=== PATIENT | male | born 1980 | race Hispanic/Latino ===

== ENCOUNTER 2020-02-21 19:25 | Emergency (ER) | payer BC ==
[~2020-02-21] VITALS: Ht 170.2 cm; Wt 105.7 kg
[~2020-02-21 19:25] MED LIST: AZITHROMYCIN250 MG PO; BACLOFEN10 MG PO; BREO ELLIPTA INH; CLONAZEPAM2 M1 PO; CRESTOR10 MG PO; DECONGESTANT; MELOXICAM7.5 MG PO; METFORMIN HCL500 MG PO; OMEPRAZOLE40 MG PO; PROAIR HFA INH8.5 GM INH; TAMIFLU
[2020-02-21] MEDS ORDERED: ONDANSETRON HCL INJ 2MG/ML 2ML 2 MG/ML VIAL IV STA (19:32)
--- NOTE | 2020-02-21 19:34 | Emergency Department Note ---
History of Present Illnes History of Present Illness Chief Complaint: Abdominal Complaints History of Present Illness This is a 40 year old male arrived to the ED with continued complaints of epigatric Abdominal pain. Patient states he is concerned that he had endoscopy done and was not told he had gastritis. Patient requesting endoscopy report results we discussed with him in a language that was understandable. Patient describes the pain is pressure-like associated with reflux and worse after meals.. Chief Complaint Comment Patient c/o left upper quadrant pain that has been going on since Saturday. Patient states he had EGD and colonoscopy and was told he had a hiatal hernia. No distress noted at this time. C/o nausea and vomiting. Historian: Patient Arrival Mode: Car Onset (how long ago): day(s) Duration (how long): day(s) Timing of current episode: constant Progression: unchanged Chronicity: recurrent Past Medical/Family History Physician Review I have reviewed the patient's past medical and family history. Any updates have been documented here. Past Medical History Recent Fever: No Clinical Suspicion of Infectio: No New/Unexplained Change in Ment: No Past Medical History: Anxiety Other Medical History: Borderline DM Other Surgery: HERNIA Social History Smoking Cessation: Never Smoker Counseling Performed: No Alcohol Use: Social Review of Systems Review of Systems Constitutional: Reports no symptoms EENTM: Reports no symptoms Cardiovascular: Reports no symptoms Respiratory: Reports no symptoms Gastrointestinal: Reports as per HPI, Reports abdominal pain, Reports nausea, Reports vomiting Genitourinary: Reports no symptoms Musculoskeletal: Reports no symptoms Integumentary: Reports no symptoms Neurological: Reports no symptoms Psychological: Reports no symptoms Endocrine: Reports no symptoms Hematological/Lymphatic: Reports no symptoms Physical Exam Related Data Allergies: Coded Allergies: Penicillins (Verified Allergy, Unknown, 05/08/17) Triage Vital Signs Vital Signs Date Time Temp Pulse Resp B/P (MAP) Pulse Ox O2 Delivery O2 Flow Rate FiO2 02/21/20 19:28 98.0 95 20 126/71 100 Room Air Vital signs reviewed: Yes Physical Exam CONSTITUTIONAL Constitutional: Present well-developed, Present well-nourished HENT HENT: Present normocephalic, Present atraumatic, Present oropharynx clear/moist, Present nose normal HENT L/R: Present left ext ear normal, Present right ext ear normal EYES Eyes: Reports PERRL, Reports conjunctivae normal NECK Neck: Present ROM normal PULMONARY Pulmonary: Present effort normal, Present breath sounds normal CARDIOVASCULAR Cardiovascular: Present regular rhythm, Present heart sounds normal, Present capillary refill normal, Present normal rate GASTROINTESTINAL Abdominal: Present soft, Present bowel sounds normal, Present tender GENITOURINARY Genitourinary: Present exam deferred SKIN Skin: Present warm, Present dry MUSCULOSKELETAL Musculoskeletal: Present ROM normal NEUROLOGICAL Neurological: Present alert, Present oriented x 3, Present no gross motor or sensory deficits PSYCHOLOGICAL Psychological: Present mood/affect normal, Present judgement normal Results Laboratory Lab results reviewed: Yes Imaging Imaging results reviewed: Yes Impressions LOWER THORAX: Unremarkable HEPATOBILIARY: No focal hepatic lesions. No biliary ductal dilation. GALLBLADDER: There are cholecystectomy clips. SPLEEN: No splenomegaly. PANCREAS: No focal masses or ductal dilatation. ADRENALS: No adrenal nodules KIDNEYS/URETERS: Kidneys enhance symmetrically. No hydronephrosis. No cystic or solid mass lesions. No stones. GI TRACT: No abnormal distention, wall thickening, or evidence of bowel obstruction. Colonic diverticuli. Appendix is normal. PELVIC ORGANS/BLADDER: Unremarkable. LYMPH NODES: No lymphadenopathy. VESSELS: Unremarkable. PERITONEUM / RETROPERITONEUM: No free air or fluid. BONES: Unremarkable. SOFT TISSUES: Hernia repair mesh intact in the lower anterior peritoneum. IMPRESSION: No acute CT abnormality in the abdomen or pelvis. Colonic diverticulosis without diverticulitis. Signed by: Rc Morales DO on 02/21/2020 10:30 PM Assessment & Plan Medical Decision Making MDM 40-year-old male arrived to the ED with complaints epigastric abdominal pain, patient with a generally benign abdomen. Patient's recent endoscopy/colonoscopy are consistent with gastritis with hiatal hernia. CT abdomen pelvis done in the emergency department unremarkable for any acute surgical or obstructive process. Spoke to patient at length about the need for bland diet, weight loss status. Patient also given discharge instructions on appropriate foods to ingest with gastritis. Patient expressed understanding, atypical presentation of ACS was ruled out with lab work and EKG. Patient stable for discharge home. Assessment & Plan Final Impression: (1) Gastritis Depart Disposition: HOME, SELF-CARE Last Vital Signs Date Time Temp Pulse Resp B/P (MAP) Pulse Ox O2 Delivery O2 Flow Rate FiO2 02/21/20 19:28 98.0 95 20 126/71 100 Room Air Home Meds Active Scripts Mag Hydrox/Al Hydrox/Simeth (MAALOX MAXIMUM STRENGTH SUSP) 355 Ml Oral.susp, 15 ML PO TID, #120 ML Prov:SAEID CROOK DO 02/21/20 Reported Medications [Decongestant] No Conflict Check 05/10/17 [Tamiflu] No Conflict Check 05/10/17 Azithromycin (Z-JOVAN) 250 Mg Tablet, 250 MG PO DAILY, #1 UDPKT Z-Pack 05/08/17 [Breo Ellipta] No Conflict Check, INH DAILY 05/08/17 Albuterol Sulf* (PROAIR HFA INHALER*) 8.5 Gm Inh, 1 SPR INH PRN PRN for SHORTNESS OF BREATH 05/08/17 Rosuvastatin Calcium (CRESTOR) 10 Mg Tab, 10 MG PO DAILY THERAPEUTICALLY SUBSTITUTED WITH SIMVASTATIN 40MG 05/08/17 Omeprazole (OMEPRAZOLE) 40 Mg Capsule.dr, 40 MG PO DAILY 05/08/17 Baclofen (BACLOFEN) 10 Mg Tablet, 10 MG PO TID, #90 TAB 05/08/17 Meloxicam (MELOXICAM) 7.5 Mg Tablet, 15 MG PO DAILY, #30 TAB 05/08/17 Metformin Hcl (METFORMIN HCL) 500 Mg Tablet, 500 MG PO BID, #60 TAB 05/08/17 Clonazepam (CLONAZEPAM) 2 Mg Tab.rapdis, 2 MG PO PRN PRN for ANXIETY 05/08/17 SAEID CROOK DO Feb 21, 2020 19:34
[2020-02-21] MEDS ORDERED: MORPHINE SULFATE 5 MG/ML VIAL IV ONE (19:45)
[2020-02-21] MEDS ORDERED: IOPAMIDOL 370 MG/ML 200 ML INFUS..BTL INJ ONE (19:46)
[2020-02-21] MEDS ORDERED: SODIUM CHLORIDE 0.9% 50ML 50 ML ONE (19:46)
[2020-02-21 19:50] LABS: BILIRUBIN,URINE NEGATIVE (NEGATIVE); CLARITY,URINE HAZY (CLEAR); COLOR,URINE YELLOW (YELLOW); KETONES,URINE NEGATIVE (NEGATIVE); LEUKOCYTE ESTERASE ,URINE NEGATIVE (NEGATIVE); NITRITE,URINE NEGATIVE (NEGATIVE); PROTEIN,URINE DIPSTICK NEGATIVE (NEGATIVE); URINE UROBILINOGEN 0.2 mg/dL (0.2 - 1)
[2020-02-21 19:51] LABS: BASOPHILS % 0.6 % (0.0-1.0); EOSINOPHILS # (AUTO) 0.2 (0.0-0.4); EOSINOPHILS % 3.8 % (0.0-6.0); HEMATOCRIT 44.8 % (38.2-49.6); HEMOGLOBIN 14.9 g/dL (14.0-18.0); LYMPHOCYTES # (AUTO) 2.2 (1.0-3.2); LYMPHOCYTES % 34.2 % (18.0-39.1); MEAN CORPUSCULAR HEMOGLOBIN 29.9 pg (28-32); MEAN CORPUSCULAR HGB CONC 33.3 g/dL (31-35); MONOCYTES # (AUTO) 0.5 (0.2-0.8); MONOCYTES % 7.5 % (4.4-11.3); NEUTROPHILS # (AUTO) 3.4 (2.1-6.9); NEUTROPHILS % 53.4 % (38.7-80.0); PLATELET COUNT 277 x10e3/uL (140-360); RED BLOOD COUNT 4.98 x10e6/uL (4.3-5.7)
[2020-02-21 19:54] LABS: BACTERIA,URINE FEW /HPF; EPITHELIAL CELLS,URINE FEW /LPF; RBC,URINE 0-5 /HPF (0-5); WBC,URINE (MAN) 0-5 /HPF (0-5)
[2020-02-21] MEDS ORDERED: SODIUM CHLORIDE 0.9% 1000ML 1,000 ML ONE (19:56)
--- OUTSIDE RECORDS SUMMARY | 2020-02-21 19:56 | XMS REPORT | Clinical Summary ---
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 On HOLD because of diarrhea. Active clonAZEPAM (KlonoPIN) 1 Take 1 mg by 0 MG tablet mouth nightly as needed for anxiety. Active rosuvastatin (CRESTOR) 20 Take 20 mg by 0 MG tablet mouth nightly. Active lisinopril Take 5 mg by 0 (PRINIVIL,ZESTRIL) 5 mg mouth daily. tablet On HOLD because of diarrhea. Active escitalopram (LEXAPRO) 20 Take 20 mg by 0 MG tablet mouth nightly. Active aspirin (ECOTRIN) 81 MG Take 81 mg by 0 enteric coated tablet mouth daily. Active acetaminophen (TYLENOL) Take 500 mg 0 500 MG tablet by mouth every 6 (six) hours as needed for mild pain. Active cyclobenzaprine Take 10 mg by 0 (FLEXERIL) 10 mg tablet mouth 3 (three) times a day as needed for muscle spasms. Active keTOROlac (TORadol) 10 mg Take 10 mg by 0 tablet mouth every 6 (six) hours as needed for moderate pain. Active testosterone 20.[address] Place 20.25 0 mg/1.25 gram (1.62 %) gel mg on the in metered-dose pump skin daily. 02/26/2019 Discontinued (Med List Clean up) ciprofloxacin HCl (CIPRO) Take 750 mg 0 750 MG tablet by mouth 2 (two) times a day. Active Problems Not on file Encounters Care Team Description Date Type Specialty Kevin Dee MD Gastroenteritis (Primary Dx); Upper respiratory tract infection, unspecified type 02/26/2019 Emergency Emergency Medicine after 02/20/2019 Social History Date Tobacco Use Types Packs/Day Years Used Never Smoker Drinks/Week oz/Week Comments Alcohol Use Not Currently Sex Assigned at Date Recorded Not on file Industry Job Start Date Occupation Not on file Not on file Not on file Travel End Travel History Travel Start No recent travel history available. Last Filed Vital Signs Reading Time Taken Comments Vital Sign 139/86 02/26/2019 9:06 AM CDT Blood Pressure 82 02/26/2019 11:00 AM CDT Pulse 36.6 C (97.9 F) 02/26/2019 9:19 AM CDT Temperature 18 02/26/2019 9:06 AM CDT Respiratory Rate 98% 02/26/2019 11:00 AM CDT Oxygen Saturation - - Inhaled Oxygen Concentration - - Weight 170.2 cm (5' 7") 02/26/2019 9:06 AM CDT Height - - Body Mass Index Plan of Treatment Health Maintenance Due Date Last Done Comments INFLUENZA VACCINE 03/10/2020 Procedures Comments Procedure Name Priority Date/Time Associated Diag nosis CT RENAL STONE PROTOCOL STAT 02/26/2019 10:50 AM CDT URINALYSIS SCREEN AND STAT 02/26/2019 MICROSCOPY, WITH REFLEX 9:58 AM CDT TO CULTURE URINE CULTURE STAT 02/26/2019 9:58 AM CDT ESTIMATED GFR STAT 02/26/2019 9:53 AM CDT LIPASE LEVEL STAT 02/26/2019 9:53 AM CDT COMPREHENSIVE METABOLIC STAT 02/26/2019 PANEL 9:53 AM CDT HC COMPLETE BLD COUNT STAT 02/26/2019 W/AUTO DIFF 9:53 AM CDT after 02/20/2019 Results * CT Renal Stone Protocol (02/26/2019 10:50 AM CDT) Specimen Narrative Performed At EXAMINATION: CT RENAL STONE PROTOCOL [facility] CLINICAL HISTORY: Hematuria unknown cause TECHNIQUE: Multiple axial images of the abdomen and pelvis were obtained without intravenous administration of iodinated contrast. Sagittal and coronal computerized reformatted images were al so obtained. The lack of intravenous contrast reduces the sensitivity of detecting solid organ di sease. CT imaging was performed with iterative reconstruction techniques and/or automated exposure control to reduce ra diation dose. COMPARISON: None. FINDINGS: Lower chest: No parenchymal abnormality is noted in the lung bases. Abdomen: Limited assessment for solid organ and vascular disease in the absence of contrast. No free air is seen in the abdomen. The re is no evidence of pneumatosis. Limited noncontrast images of the liver demonstrates fatty infiltration. No definite focal liver lesion can be iden tified on this noncontrast examination. Prior cholecystectomy. No significant d ilatation of the biliary tree. The spleen is not enlarged. The adrenal glands are unremarkable. Within the limitations of a noncontrast examination, no definite focal abnormality can be seen in the pancreas . The abdominal aorta is nonaneurysmal. No significant adenopathy in the upper abdomen, retroperitoneum, or mesenteric root by size criteria. There are a few scattered diverticula o f the colon without findings to suggest diverticulitis. There is no evidence of appendicitis. There is no thickening of the small bowel or findings to suggest underlying small bowel obstruction. The stomach is grossly unremarkable. No ascites. No suspicious peritoneal or omental nodularity. Within the limitations of a noncontrast examination, there is no evidence of a solid mass seen in either kidney. There is no evidence of hydronephrosis or hydroureter. No renal stone or evidence of a ureteral stone. No ascites. Prior hernia repair with me sh. Pelvis: Urinary bladder is grossly unremarkable . No pelvic adenopathy. Minor degenerative changes of the bones . No definite suspicious bony lesion is identified. IMPRESSION: 1.No CT evidence of an acute abnormalit y in the abdomen or pelvis. 2.Fatty infiltration of the liver. 3.Prior cholecystectomy. 4.Colonic diverticulosis without eviden ce of acute diverticulitis. 5.Additional findings and details as ab ove. [facility]-[id number] Procedure Note [facility], Radiology Results Incoming - 02/26/2019 10:59 AM CDT EXAMINATION: CT RENAL STONE PROTOCOL CLINICAL HISTORY: Hematuria unknown cause TECHNIQUE: Multiple axial images of the abdomen and pelvis were obtained without intravenous administration of iodinated contrast. Sagittal and coronal computerized reformatted images were also obtained. The lack of intravenous contrast reduces the sensitivity of detecting solid organ disease. CT imaging was performed with iterative reconstruction techniques and/or automated exposure control to reduce radiation dose. COMPARISON: None. FINDINGS: Lower chest: No parenchymal abnormality is noted in the lung bases. Abdomen: Limited assessment for solid organ and vascular disease in the absence of contrast. No free air is seen in the abdomen. There is no evidence of pneumatosis. Limited noncontrast images of the liver demonstrates fatty infiltration. No definite focal liver lesion can be identified on this noncontrast examination. Prior cholecystectomy. No significant dilatation of the biliary tree. The spleen is not enlarged. The adrenal glands are unremarkable. Within the limitations of a noncontrast examination, no definite focal abnormality can be seen in the pancreas. The abdominal aorta is nonaneurysmal. No significant adenopathy in the upper abdomen, retroperitoneum, or mesenteric root by size criteria. There are a few scattered diverticula of the colon without findings to suggest diverticulitis. There is no evidence of appendicitis. There is no thickening of the small bowel or findings to suggest underlying small bowel obstruction. The stomach is grossly unremarkable. No ascites. No suspicious peritoneal or omental nodularity. Within the limitations of a noncontrast examination, there is no evidence of a solid mass seen in either kidney. There is no evidence of hydronephrosis or hydroureter. No renal stone or evidence of a ureteral stone. No ascites. Prior hernia repair with mesh. Pelvis: Urinary bladder is grossly unremarkable. No pelvic adenopathy. Minor degenerative changes of the bones. No definite suspicious bony lesion is identified. IMPRESSION: 1.No CT evidence of an acute abnormality in the abdomen or pelvis. 2.Fatty infiltration of the liver. 3.Prior cholecystectomy. 4.Colonic diverticulosis without evidenc e of acute diverticulitis. 5.Additional findings and details as abo ve. [facility]-[id number] Performing Organization Address City/State/Zipcode Ph one Number [facility] [address] [place] [address] * Urinalysis screen and microscopy, with reflex to culture (02/26/2019 9:58 AM CDT) Specimen site Clean catch [facility] Color, UA Yellow [facility] Appearance, UA Clear [facility] Specific 1.023 1.001 - 1.035 [place] gravity, [facility] pH, UA 6.0 5.0 - 8.5 [facility] Protein, UA 1+ (A) Negative [facility] Glucose, UA Negative Negative [facility] Ketones, UA Negative Negative [facility] Bilirubin, UA Negative Negative [facility] Blood, UA Small (A) Negative [facility] Nitrite, UA Negative Negative [facility] Urobilinogen, <2.0 <2.0 [facility] Leukocyte Negative Negative [facility] esterase, UA [facility] WBC, UA 1 0 - 1 /HPF [facility] RBC, UA 2 0 - 5 /HPF [facility] Bacteria, UA None seen None seen [facility] Yeast, UA None seen [facility] Yeast with None seen [facility] Specimen Urine Performing Organization Address City/[facility] Ph one Number [facility] DEPARTMENT OF [address] [place] [address] PATHOLOGY AND GENOMIC MEDICINE [address] * Urine culture (02/26/2019 9:58 AM CDT) Pathologist [facility] Urine culture SEE COMMENTComment: [facility] Bacteriuria screen negative. [facility] Specimen Urine Performing Organization Address [facility] Ph one Number [facility] DEPARTMENT OF [address] [place] [address] PATHOLOGY AND GENOMIC MEDICINE [address] * Estimated GFR (02/26/2019 9:53 AM CDT) Pathologist [facility] Estimated GFR >=90 mL/min/1.73 m2 [facility] Comment: [facility] Interpretation G1 >=90 Normal or high G2 60-89 Mildly decreased G3a 45-59 Mildly to moderately decreased G3b 30-44 Moderately to severely decreased G4 15-29 Severely decreased G5 <15 Kidney failure The eGFR was calculated using the Chronic Kidney Disease Epidemiology Collaboration (CKD-EPI) equation. Interpretation is based on recommendations of the National Kidney Foundation-Kidney Disease Outcomes Quality Initiative (NKF-KDOQI) published in 2014. Specimen Plasma specimen Performing Organization Address City/[facility]/[employer] Ph one Number [facility] DEPARTMENT OF [address] [place] [address] PATHOLOGY AND GENOMIC MEDICINE [address] * CBC with platelet and differential (02/26/2019 9:53 AM CDT) WBC 6.62 4.50 - 11.00 k/uL [facility] RBC 5.56 4.40 - 6.00 m/uL [facility] HGB 16.6 14.0 - 18.0 g/dL [facility] HCT 51.1 (H) 41.0 - 51.0 % [facility] MCV 91.9 82.0 - 100.0 fL [facility] MCH 29.9 27.0 - 34.0 pg [facility] MCHC 32.5 31.0 - 37.0 g/dL [facility] RDW - SD 43.0 37.0 - 55.0 fL [facility] MPV 9.1 8.8 - 13.2 fL [facility] Platelet count 350 150 - 400 k/uL [facility] Nucleated RBC 0.00 /100 WBC [facility] Neutrophils 62.4 39.0 - 69.0 % [facility] Lymphocytes 29.5 25.0 - 45.0 % [facility] Monocytes 5.0 0.0 - 10.0 % [facility] Eosinophils 1.8 0.0 - 5.0 % [facility] Basophils 0.8 0.0 - 1.0 % [facility] Immature 0.5Comment: "Immature 0.0 - 1.0 % [facility] granulocytes granulocytes" (promyelocytes, METHOD IST myelocytes, metamyelocytes) HOSPITAL Specimen Blood Performing Organization Address City/[facility] Ph one Number [facility] DEPARTMENT OF [address] [place] [address] PATHOLOGY AND GENOMIC MEDICINE [address] * Lipase level (02/26/2019 9:53 AM CDT) Pathologist [facility] Lipase 25 13 - 60 U/L [facility] Specimen Plasma specimen Performing Organization Address City/[facility] Ph one Number [facility] [place] [address] PATHOLOGY AND GENOMIC MEDICINE [address] * Comprehensive metabolic panel (02/26/2019 9:53 AM CDT) [facility] Sodium 140 135 - 148 mEq/L [facility] Potassium 4.2 3.5 - 5.0 mEq/L [facility] Chloride 101 98 - 112 mEq/L [facility] CO2 27 24 - 31 mEq/L [facility] Anion gap 12@ANIO 7 - 15 mEq/L [facility] BUN 14 6 - 20 mg/dL [facility] Creatinine 0.99 0.70 - 1.20 mg/dL [facility] Glucose 106 (H) 65 - 99 mg/dL [facility] Calcium 9.5 8.3 - 10.2 mg/dL [facility] Protein 8.0 6.3 - 8.3 g/dL [facility] Comment: [facility] 4.6-7.0 g/dL 1 week 4.4-7.6 g/dL 7 months-1year 5.1-7.3 g/dL 1-2 years 5.6-7.5 g/dL >3 years 6.0-8.0 g/dL 18-150 6.3-8.3 g/dL Albumin 4.2 3.5 - 5.0 g/dL [facility] A/G ratio 1.1 0.7 - 3.8 [facility] Alkaline 142 (H) 40 - 129 U/L [facility] phosphatase [facility] AST 22 10 - 50 U/L [facility] ALT 41 5 - 50 U/L [facility] Total bilirubin 0.5 0.0 - 1.2 mg/dL [facility] Specimen Plasma specimen Performing Organization Address City/State/[facility] Ph one Number [facility] DEPARTMENT OF [address] [place] [address] PATHOLOGY [place] [address] HOSPITAL after 02/20/2019 Insurance Type Payer Benefit Subscriber ID Effective Phone Address Plan / Dates Group PPO BCBS BCBS xxxxxxxxxxxx [id number] CHOICE resent PPO/SERGEY MCARTHUR PPO Advance Directives For more information, please contact: [phone] Patient Electronic Gluer Explanation Type Date Recorded Advance Directives, Living Will and Medical Power of Mask Former
--- OUTSIDE RECORDS SUMMARY | 2020-02-21 19:56 | XMS REPORT | Continuity of Care Document ---
[facility] Address [address] [place] [address] Phone Unavailable Care Team Providers Care Sleep Lab Technologist Name Role Phone Arya Reynolds MD PCP Jie Dee MD Attphys [phone] Oralia MINOR Attphys Unavailable Payers Payer Name Policy Type Policy Number Effective Date Expiration Date S jaida BCBSBCBS CHOICE PPO/FEDERAL EMPL PPOxxxxxxxxxxxx2017-Pre sentPPO xxxxxxxxxxxx 2017 00:00:00 [facility] Problems Condition Name Condition Details Condition Category Status Onset Date Resolution Date Last Treatment Date Treating Clinician Comments Source Musculoskeletal chest pain Musculoskeletal chest pain Disease Active 2015-03-16 00:00:00 [facility] Vomiting Vomiting Disease Active 2014-04-07 00:00:00 Overview: Reported 02/21 by pt as occuring nearly daily for 2 years. Referred to GI, who requested further lab/Xrays. Informed pt of need to return for these. [facility] Fatty liver Fatty liver Disease Active 2014-01-19 00:00:00 [facility] Hyperlipidemia Hyperlipidemia Disease Active 2014-01-19 00:00:00 [facility] Costochondritis Costochondritis Disease Active 2014-01-19 00:00:00 [facility] Polydipsia Polydipsia Disease Active [facility] Polyuria Polyuria Disease Active [facility] Allergies, Adverse Reactions, Alerts Allergy Name Allergy Type Status Severity Reaction(s) Onset Date Inacti ve Date Treating Clinician Comments Source Ciprofloxacin Propensity to adverse reactions to drug Active 2019-02-26 00:00:00 dizziness Shahram lowery Penicillins Propensity to adverse reactions to drug Active Rash 2019-02-26 00:00:00 Shahram lowery Penicillins DA Active [place] 2017-12-11 00:00:00 [facility] Penicillins Propensity to adverse reactions to drug Active 2014-01-19 00:00:00 [facility] Family History Family Member Diagnosis Comments Start Date Stop Date Source Natural brother Cancer [facility] alth Natural father Hypertension [facility] ealth Maternal grandmother Diabetes [facility] Maternal grandmother Heart Saurabh is [facility] Natural mother Psychiatry Located within [facility] Social History Social Habit Start Date Stop Date Quantity Comments Source Sex Assigned At [facility] Alcohol intake 2015-07-27 00:00:00 2015-07-27 00:00:00 Current non-drinker of alcohol (finding) [facility] Alcohol Comment 2014-05-20 00:00:00 2014-05-20 00:00:00 quit 6 yrs ag o [facility] Smoking Status Start Date Stop Date Source Never smoker [facility] Medications Ordered Medication Name Filled Medication Name Start Date Stop Da te Current Medication? Ordering Clinician Indication Dosage Frequency Signature (SIG) Comments Components Source ciprofloxacin HCl (CIPRO) 750 MG tablet 12:26:31 2019-02-26 00:00:00 No 750mg Q.5D Take 750 mg by mouth 2 (two) ti mes a day. Shahram Haider rosuvastatin (CRESTOR) 20 MG tablet 2019-02-26 12:25:30 Yes 20mg QD Take 20 mg by mouth nightly. Shahram martin escitalopram (LEXAPRO) 20 MG tablet 2019-02-26 12:25:30 Yes 20mg QD Take 20 mg by mouth nightly. Shahram martin cyclobenzaprine (FLEXERIL) 10 mg tablet 2019-02-26 12:25:30 Yes 10mg [id number] Take 10 mg by mouth 3 (three) times a da y as needed for muscle spasms. Shahram Haider keTOROlac (TORadol) 10 mg tablet 2019-02-26 12:25:30 Yes 10mg Q6H Take 10 mg by mouth every 6 (six) hours as needed for moderate pain. Shahram Haider testosterone 20.25 mg/1.25 gram (1.62 %) gel in metered-dose pump 2019-02-26 12:25:[address] 20.25 mg on the skin d aily. Shahram Haider metFORMIN (GLUCOPHAGE) 500 mg tablet 2019-02-26 11:10:48 Ye s 500mg Q.5D Take 500 mg by mouth 2 (two) times a day with meals. On HOLD because of diarrhea. Shahram Haider clonAZEPAM (KlonoPIN) 1 MG tablet 2019-02-26 11:10:48 Yes 1mg QD Take 1 mg by mouth nightly as needed for anxiety. Shahram Haider lisinopril (PRINIVIL,ZESTRIL) 5 mg tablet 2019-02-26 11:10:48 Yes 5mg QD Take 5 mg by mouth daily. On HOLD because of diarrhea. Shahram Haider aspirin (ECOTRIN) 81 MG enteric coated tablet 2019-02-26 11:10:4 8 Yes 81mg QD Take 81 mg by mouth daily. Sebastian Haider acetaminophen (TYLENOL) 500 MG tablet 2019-02-26 11:10:48 Y es 500mg Q6H Take 500 mg by mouth every 6 (six) hours as needed for mild pain. Shahram Haider dicyclomine (BENTYL) 10 mg capsule 2015-08-02 00:00:00 Yes Epigastric pain 10mg Take 1 capsule by mo uth 4 times daily before meals & at bedtime as needed. [facility] gabapentin (NEURONTIN) 100 mg capsule 2015-07-27 00:00:00 Yes Tension headache 100mg Take 1 capsule by mouth 3 times daily. [facility] predniSONE (DELTASONE) 10 mg tablet 2015-07-27 00:00:00 Yes Neck strain, sequela 10mg QD Take 1 tablet by mouth daily. [facility] methocarbamol (ROBAXIN-750) 750 mg tablet 2015-07-25 00:00:0 0 Yes Tension headache 750mg Take 1 tablet by dane 4 times daily as needed for Other (muscle spasms). [facility] clonazePAM (KLONOPIN) 1 mg tablet 2015-03-30 12:05:34 Yes 1mg Take 1 mg by mouth 2 times daily as needed for Anxiety. [facility] Vital Signs Vital Name Observation Time Observation Value Comments Source Heart rate 2019-02-26 11:00:00 82 /min Shahram Haider Oxygen saturation in Arterial blood by Pulse oximetry 02-26 11:00:00 98 /min Shahram Haider Body temperature 2019-02-26 09:19:00 36.61 Estrella [place] [facility] Systolic blood pressure 2019-02-26 09:06:00 139 mm[Hg] Shahram Haider Diastolic blood pressure 2019-02-26 09:06:00 86 mm[Hg] Shahram Haider Respiratory rate 2019-02-26 09:06:00 18 /min Hous denise Haider Body height 2019-02-26 09:06:00 170.2 cm Shahram Haider Procedures Procedure Date / Time Performed Performing Clinician [facility] e CT RENAL STONE PROTOCOL 2019-02-26 10:50:03 [place] Dee URINE CULTURE 2019-02-26 09:58:00 Kevin Dee URINALYSIS SCREEN AND MICROSCOPY, WITH REFLEX TO CULTURE 201 02-16-19 09:58:00 Kevin Dee HC COMPLETE BLD COUNT W/AUTO DIFF 2019-02-26 09:53:00 Kevin Oconnor COMPREHENSIVE METABOLIC PANEL 2019-02-26 09:53:00 Kevin Dee LIPASE LEVEL 2019-02-26 09:53:00 Kevin Dee ESTIMATED GFR 2019-02-26 09:53:00 Kevin Dee Plan of Care Planned Activity Planned Date Details Comments Source Future Scheduled Test 2020-03-10 00:00:00 INFLUENZA VACCINE [code = INFLUENZA VACCINE] [facility] Encounters Start Date/Time End Date/Time Encounter Type Admission Type [facility] Care Department Encounter ID Source 2019-09-26 11:37:00 2019-09-26 11:37:00 Emergency [facility] [id number] [facility] Results Test Description Test Time Test Comments Results Result Comments Source COMPREHENSIVE METABOLIC PANEL 2019-09-24 09:01:00 Test Item SODIUM (test code = NA) 136 mEq/L 134-147 N POTASSIUM (test code = K) 3.5 mEq/L 3.4-5.0 N CHLORIDE (test code = CL) 105 mEq/L 100-108 N CARBON DIOXIDE (test code = CO2) 29 mEq/L 21-33 N ANION GAP (test code = GAP) 6 0-20 N GLUCOSE (test code = GLU) 108 mg/dL 70-110 N BLOOD UREA NITROGEN (test code = BUN) 12 mg/dL 7-18 N GLOMERULAR FILTRATION RATE (test code = GFR) 83.2 105-110 L Units of measure = ml/min/1.73 m2 CREATININE (test code = CREAT) 1.0 mg/dL 0.6-1.3 N TOTAL PROTEIN (test code = PROT) 7.8 g/dL 6.4-8.2 N ALBUMIN (test code = ALB) 3.80 g/dL 3.4-5.0 N CALCIUM (test code = CA) 8.8 mg/dL 8.0-10.5 N BILIRUBIN TOTAL (test code = BILT) 0.7 MG/DL <1.5 N SGOT/AST (test code = AST) 31 IUnit/L 15-37 N SGPT/ALT (test code = ALT) 43 IUnit/L 15-65 N ALKALINE PHOSPHATASE TOTAL (test code = ALKP) 107 IUnit/L 20-125 N [id number] 09:01:00* Test Item Value Reference Range Interpretation Comments LIPASE (test code = LIP) 73 IUnit/L 73-393 N [id number] 09:01:00* Test Item Value Reference Range Interpretation Comments TROPONIN-I (test code = TROPI) < 0.015 ng/mL 0.000-0.045 N Negative: <= 0.045 Positive: >= 0.046 Correlation with serial results, other cardiac markers andclinical findings is necessary to determine the clinicalsignificance of this result. Results using different methodologies should not be comparedto one another as quantitative results may vary by method. CBC W/AUTO [id number] 08:24:00* Test Item Value Reference Range Interpretation Comments WHITE BLOOD CELL (test code = WBC) 5.81 x10 3/uL 4.5-11.0 N RED BLOOD CELL (test code = RBC) 4.94 x10 6/uL 4.00-5.60 N HEMOGLOBIN (test code = HGB) 15.2 g/dL 12.5-16.9 N HEMATOCRIT (test code = HCT) 45.6 % 37.5-50.7 N MEAN CELL VOLUME (test code = MCV) 92.3 fL 81.0-99.0 N MEAN CELL HGB (test code = MCH) 30.8 pg 27.0-33.0 N MEAN CELL HGB CONCETRATION (test code = MCHC) 33.3 g/dL 33.0-37. 0 N RED CELL DISTRIBUTION WIDTH CV (test code = RDW) 12.9 % 11.5- 14.5 N RED CELL DISTRIBUTION WIDTH SD (test code = RDW-SD) 43.5 fL 37 .0-54.0 N PLATELET COUNT (test code = PLT) 305 x10 3/uL 150-400 N MEAN PLATELET VOLUME (test code = MPV) 9.5 fL 7.0-9.0 H NEUTROPHIL % (test code = NT%) 70.5 % 56.0-77.0 N IMMATURE GRANULOCYTE % (test code = IG%) 0.3 % 0.0-2.0 N LYMPHOCYTE % (test code = LY%) 20.8 % 14.0-32.0 N MONOCYTE % (test code = MO%) 6.2 % 4.8-9.0 N EOSINOPHIL % (test code = EO%) 1.7 % 0.3-3.7 N BASOPHIL % (test code = BA%) 0.5 % 0.0-2.0 N NUCLEATED RBC % (test code = NRBC%) 0.0 % 0-0 N NEUTROPHIL # (test code = NT#) 4.09 x10 3/uL 2.0-7.6 N IMMATURE GRANULOCYTE # (test code = IG#) 0.02 x10 3/uL 0.00-0.03 N LYMPHOCYTE # (test code = LY#) 1.21 x10 3/uL 1.0-3.8 N MONOCYTE # (test code = MO#) 0.36 x10 3/uL 0.1-0.8 N EOSINOPHIL # (test code = EO#) 0.10 x10 3/uL 0.0-0.2 N BASOPHIL # (test code = BA#) 0.03 x10 3/uL 0.0-0.2 N NUCLEATED RBC # (test code = NRBC#) 0.00 x10 3/uL 0.0-0.1 N MANUAL DIFF REQUIRED (test code = MDIFF) NO - XR CHEST 1 [id number] 08:24:00 FAX: Arya Corley MD [phone] [place]: St: [facility] FAX: Iraj Larsen [phone] Name: VALENTE MORA [facility] : 1980 Age/S: 39/M [address] [place] [address] Unit #: [id number] Loc: [place] [address] Phys: Iraj Larsen Acct: [id number] Dis Date: Status: REG ER PHONE #: [phone] Exam Date: 09/24/2019 08 FAX #: [phone] Reason: cough, hemoptysis EXAMS: CPT CODE: [id number] XR CHEST 1 V 73407 EXAM: Single view AP chest. EXAM DATE: 09/24/2019804 CLINICAL HISTORY: cough, hemoptysis COMPARISON: April 25, 2019 at 2007 hours Cardiomediastinal silhouette is within normal limits. The lungs appear free of acute disease. Elevation of the right hemidiaphragm is stable. Imaged osseous structures demonstrate no acute findings. IMPRESSION: No evidence of acute cardiopulmonary disease. at 0824 Reported and signed by: Shelley Bonilla M.D. CC: Arya Reynolds M.D.; Iraj HIGUERA Techn ologist: Joan Ye RT(R) Trnscrd Date/Joe e/By: 09/24/2019 (0810) : By: NatashaCER Orig Print D/T: S: 09/24/2019 (8970) PAGE 1 Signed Report - CT ABD PELVIS [id number] 23:43:00 Name: VALENTE MORA [facility] : 1980 Age/S: 39 / M [address] [place] [address] Unit #: [id number] Loc: [place] [address] Phys: Ceasar Sanderson Acct: [id number] Di s Date: Status: REG ER PHONE #: Exam Date: 06/26/20192316 FAX #: Reason: RLQ pain EXAMS: CPT CODE: [id number] CT ABD PELVIS W/CONT 33554 EXAM: CT, CT ABDO MEN PELVIS W CONTRAST: 06/26/2019, 2316 hours HISTORY: RLQ pain COMPARISON: 06/29/2019. TECHNIQUE: Helical imaging was p erformed from diaphragm through the symphysis with coronal and sagittal re constructions. CT imaging was performed with exposure control parameters to reduce radiation dose. All CT scans at this location are performed usin g dose optimization techniques as appropriate to perform exam including following: * Automated exposure control * Adjustment of the mA a nd /or kV according to patient size (this includes techniques or standardi zed protocols for targeted exams where dose is matched to indication/reaso n for exam; extremities or head) * Use of iterative reconstruction techn ique IV CONTRAST: 100 cc Isovue. GI CONTRAST: No CT Radiation Dose: DLP = 694.57 mGy-cm FINDINGS: LOWER CHEST: T he visualized lung bases are clear. LIVER: Hepatic steatos is.. GALLBLADDER: Cholecystectomy.. INTRAHEPATIC BILE DUCT AND EXTRA HEPATIC BILE DUCT: Unremarkable. PANCREAS: Unremarkable. SPLEEN: Unr emarkable. ADRENALS: Unremarkable. KIDNEYS AND URETERS: Unremarkable . STOMACH: Unremarkable. BOWEL: The small bowel loops in the abdomen and pelvis appear unremarkable. Sigmoid diverticulosis without di verticulitis. APPENDIX: Unremarkable. No evidence for acute appendicitis . PERITONEUM AND RETROPERITONEUM: No ascites or free air. There is no aortic aneurysm or dissection. LYMPH NODES: Unremarkable. PELVIS: No pelvic mass or adenopathy. PAGE 1 Signed Report (CONTINUED) Name: VALENTE MORA [facility] : 1980 Age/S: 39 / M [address] [place] [address] Unit #: [id number] Loc: [place] [address] Phys: Vicenta Sanderson Acct: [id number] Dis Date: Status: REG ER PHONE #: [phone] Exam Date: 06/26/2019 231 FAX #: [phone] Reason: RLQ pain EXAMS: CPT CODE: [id number] CT ABD PELVIS W/CONT 75345 <Continued> BLADDER: Unremarkable. Prostatitic calcification. OSSEOUS STRUCTURES: No acute abnormality seen. SOFT TISSUES: Ventral hernia repair changes.. IMPRESSION: 1. No acute abdominal or pelvic abnormality. No significant interval change. 2. No evidence for appendicitis. 3. Hepatic steatosis. 4. Sigmoid diverticulosis without diverticulitis. 5. Cholecystectomy. SL: FLORY at 2343 Reported and signed by: Jair Arcos M.D. CC: Arya Reynolds M.D.; Vicenta HIGUERA Technologist:Jenny Wing, RT(R)(CT) CTDI: DLP: Trnscb Date/Time: 06/26/2019 (2343) [email or web address] Orig Print D/T: S: 06/26/2019 (7266) PAGE 2 Signed Report BASIC METABOLIC [id number] 23:33:00* Test Item Value Reference Range Interpretation Comments SODIUM (test code = NA) 141 mEq/L 134-147 N POTASSIUM (test code = K) 4.0 mEq/L 3.4-5.0 N CHLORIDE (test code = CL) 105 mEq/L 100-108 N CARBON DIOXIDE (test code = CO2) 30 mEq/L 21-33 N ANION GAP (test code = GAP) 10 0-20 N GLUCOSE (test code = GLU) 113 mg/dL 70-110 H BLOOD UREA NITROGEN (test code = BUN) 17 mg/dL 7-18 N GLOMERULAR FILTRATION RATE (test code = GFR) 83.2 105-110 L Units of measure = ml/min/1.73 m2 CREATININE (test code = CREAT) 1.0 mg/dL 0.6-1.3 N CALCIUM (test code = CA) 8.8 mg/dL 8.0-10.5 N BASIC METABOLIC [id number] 23:29:00* Test Item Value Reference Range Interpretation Comments SODIUM (test code = NA) 141 mEq/L 134-147 N POTASSIUM (test code = K) 4.0 mEq/L 3.4-5.0 N CHLORIDE (test code = CL) 105 mEq/L 100-108 N CARBON DIOXIDE (test code = CO2) 30 mEq/L 21-33 N ANION GAP (test code = GAP) 10 0-20 N GLUCOSE (test code = GLU) 113 mg/dL 70-110 H BLOOD UREA NITROGEN (test code = BUN) 17 mg/dL 7-18 N GLOMERULAR FILTRATION RATE (test code = GFR) 105-110 CREATININE (test code = CREAT) mg/dL 0.6-1.3 CALCIUM (test code = CA) 8.8 mg/dL 8.0-10.5 N CBC W/AUTO [id number] 23:16:00* Test Item Value Reference Range Interpretation Comments WHITE BLOOD CELL (test code = WBC) 7.01 x10 3/uL 4.5-11.0 N RED BLOOD CELL (test code = RBC) 4.81 x10 6/uL 4.00-5.60 N HEMOGLOBIN (test code = HGB) 14.7 g/dL 12.5-16.9 N HEMATOCRIT (test code = HCT) 43.2 % 37.5-50.7 N MEAN CELL VOLUME (test code = MCV) 89.8 fL 81.0-99.0 N MEAN CELL HGB (test code = MCH) 30.6 pg 27.0-33.0 N MEAN CELL HGB CONCETRATION (test code = MCHC) 34.0 g/dL 33.0-37. 0 N RED CELL DISTRIBUTION WIDTH CV (test code = RDW) 13.0 % 11.5- 14.5 N RED CELL DISTRIBUTION WIDTH SD (test code = RDW-SD) 43.0 fL 37 .0-54.0 N PLATELET COUNT (test code = PLT) 274 x10 3/uL 150-400 N MEAN PLATELET VOLUME (test code = MPV) 9.2 fL 7.0-9.0 H NEUTROPHIL % (test code = NT%) 62.8 % 56.0-77.0 N IMMATURE GRANULOCYTE % (test code = IG%) 0.3 % 0.0-2.0 N LYMPHOCYTE % (test code = LY%) 28.2 % 14.0-32.0 N MONOCYTE % (test code = MO%) 7.1 % 4.8-9.0 N EOSINOPHIL % (test code = EO%) 1.3 % 0.3-3.7 N BASOPHIL % (test code = BA%) 0.3 % 0.0-2.0 N NUCLEATED RBC % (test code = NRBC%) 0.0 % 0-0 N NEUTROPHIL # (test code = NT#) 4.40 x10 3/uL 2.0-7.6 N IMMATURE GRANULOCYTE # (test code = IG#) 0.02 x10 3/uL 0.00-0.03 N LYMPHOCYTE # (test code = LY#) 1.98 x10 3/uL 1.0-3.8 N MONOCYTE # (test code = MO#) 0.50 x10 3/uL 0.1-0.8 N EOSINOPHIL # (test code = EO#) 0.09 x10 3/uL 0.0-0.2 N BASOPHIL # (test code = BA#) 0.02 x10 3/uL 0.0-0.2 N NUCLEATED RBC # (test code = NRBC#) 0.00 x10 3/uL 0.0-0.1 N MANUAL DIFF REQUIRED (test code = MDIFF) NO URINALYSIS [id number] 22:32:00* Test Item Value Reference Range Interpretation Comments UA COLOR (test code = COLU) STRAW YEL/STRAW UA APPEARANCE (test code = APPU) CLEAR CLEAR UA GLUCOSE DIPSTICK (test code = DGLUU) NEGATIVE NEGATIVE UA BILIRUBIN DIPSTICK (test code = BILU) NEGATIVE NEGATIVE UA KETONE DIPSTICK (test code = KETU) NEGATIVE NEGATIVE UA SPECIFIC GRAVITY (test code = SGU) 1.006 1.005-1.030 N UA BLOOD DIPSTICK (test code = NEW) NEGATIVE NEGATIVE UA PH DIPSTICK (test code = NATHAN) 7.0 5.0-7.0 N UA PROTEIN DIPSTICK (test code = PROU) NEGATIVE NEGATIVE UA UROBILINIOGEN DIPSTICK (test code = URO) 0.2 mg/dL 0.2-1.0 UA NITRITE DIPSTICK (test code = AMY) NEGATIVE NEGATIVE UA LEUKOCYTE ESTERASE DIPSTICK (test code = LEUU) NEGATIVE NEGA TIVE UA RBC (test code = RBCU) 0-3 RBC/HPF 0-3 UA WBC NO REFLEX (test code = WBCUCL) 0-3 WBC/HPF 0-3 UA BACTERIA (test code = BACU) TRACE /HPF NONE SEEN UA SQUAMOUS CELLS (test code = SQU) NONE SEEN /HPF NONE SEEN UA MUCUS (test code = MUCU) TRACE /LPF NONE SEEN UA AMORPHOUS SEDIMENT (test code = AMORU) TRACE /HPF NONE - XR ABDOMEN 1V (KUB)2019-06-26 22:16:00 FAX: Arya Corley MD [phone] [place]: St: PRE FAX: Vicenta Bhatia [phone] Name: VALENTE MORA [facility] : 1980 Age/S: 39/M [address] [place] [address] Unit #: [id number] Loc: [place] [address] Phys: Vicenta Sanderson Acct: [id number] Dis Date: Status: PRE ER PHONE #: [phone] Exam Date: 06/26/20192211 FAX #: [phone] Reason: RLQ pain EXAMS: CPT CODE: [id number] XR ABDOMEN 1V (KUB) [id number] Procedure: Abdominal Radiograph. Clinical Indication: Right lower quadrant pain. Comparison: None. FIN DINGS: A supine radiograph of the abdomen demonstrates an unremarkable bow el gas pattern without definitive bowel obstruction or free intraperitonea l air. There has been previous hernia repair overlying the pelvis. There is a surgical clip in the right upper quadrant likely post cholecystectom y. IMPRESSION: 1. Unremarkable abdominal radiograph. SL: OCO-H Elec tronically Signed by Jimenez Vigil on 06/26 at 2216 Reported and signed by: Olu Vigil M.D. CC: Arya Reynolds M.D.; Vicenta HIGUERA Technologist: RT Darryl(Patricia) Trnscrd Date/Time/By: 06/26/2019 (2215) : By: NatashaTDRose Orig Print D/T: S: 06/26/2019 (2156) PAGE 1 Signed Report COMPREHENSIVE METABOLIC PANEL 2019-06-21 17:49:00* Test Item Value Reference Range Interpretation Comments SODIUM (test code = NA) 138 mEq/L 134-147 N POTASSIUM (test code = K) 3.8 mEq/L 3.4-5.0 N CHLORIDE (test code = CL) 105 mEq/L 100-108 N CARBON DIOXIDE (test code = CO2) 26 mEq/L 21-33 N ANION GAP (test code = GAP) 11 0-20 N GLUCOSE (test code = GLU) 112 mg/dL 70-110 H BLOOD UREA NITROGEN (test code = BUN) 17 mg/dL 7-18 N GLOMERULAR FILTRATION RATE (test code = GFR) 74.5 105-110 L Units of measure = ml/min/1.73 m2 CREATININE (test code = CREAT) 1.1 mg/dL 0.6-1.3 N TOTAL PROTEIN (test code = PROT) 7.9 g/dL 6.4-8.2 N ALBUMIN (test code = ALB) 3.80 g/dL 3.4-5.0 N CALCIUM (test code = CA) 9.3 mg/dL 8.0-10.5 N BILIRUBIN TOTAL (test code = BILT) 0.5 MG/DL <1.5 N SGOT/AST (test code = AST) 11 IUnit/L 15-37 L SGPT/ALT (test code = ALT) 28 IUnit/L 15-65 N ALKALINE PHOSPHATASE TOTAL (test code = ALKP) 128 IUnit/L 20-125 H [id number] 17:49:00* Test Item Value Reference Range Interpretation Comments LIPASE (test code = LIP) 154 IUnit/L 73-393 N LACTIC [id number] 17:49:00* Test Item Value Reference Range Interpretation Comments LACTIC ACID (test code = LACT) 1.3 mmol/L 0.4-1.9 N - CT ABD PELVIS [id number] 17:46:00 Name: VALENTE MORA [facility] : 1980 Age/S: 39 / M [address] [place] [address] Bl Unit #: [id number] Loc: [place] [address] Phys: Deborah Belcher DOCUMENTATION IMPROVEMENT SPECIALIST Acct: [id number] Dis Date: Status: REG ER PHONE #: [phone] Exam Date: 06/21/2019 1725 FAX #: [phone] Reason: ABDOMINAL PAIN; VOMITING/DIARRHEA EXAMS: CPT CODE: [id number] CT ABD PELVIS W/CONT 13158 CT ABDOMEN AND PELVIS WITH CONTRAST AND MULTIPLANAR REFORMATS 06/21/2019. INDICATION: Abdominal pain, vomiting and diarrhea for a few days. Past history of cholecystectomy, hernia repair and testicular surgery. COMPARISON: Limited abdomen ultrasound 06/21/[address] 02/19/2019. TECHNIQUE: Helical imaging was performed diaphragm through the symphysis with axial and coronal reformations obtained. IV CONTRAST: 100 mL Isovue-300. GI CONTRAST: None. DLP= 841.69 mGy-cm FINDINGS: LOWER CHEST: The lung bases are clear. SOLID ORGANS: Diffuse fatty liver infiltration without cirrhosis or enhancing lesion. Cholecystectomy without biliary dilatation. The spleen, pancreas, adrenal glands and kidneys show no acute finding. BOWEL: Limited assessment without oral contrast. No pneumatosis or portal venous air. Minimal colonic div erticulosis with no signs of diverticulitis. Normal caliber appendix with no thickening or inflammation. Normal caliber small bowel. PERITONEUM: No free intraperitoneal fluid or air. RETROPERITONEUM: No adenopathy. The aorta is unremarkable.. PELVIS: No pelvic angely opathy, mass or free fluid. Unremarkable bladder. No inguinal hernia or adenopathy. Prior ventral hernia mesh repair with no visible complication . MUSCULOSKELETAL: No destructive bone lesions. Mild lumbar facet arthrosis without destructive bone lesions. IMPRE SSION: 1. No acute CT explanation for the patient's symptoms. 2. Fatty liver. 3. Cholecystectomy and pelvic ventral hernia mesh repair. 4. Minimal colonic diverticulosis. 5. Noninflamed appendix. PAGE 1 Signed Report (CONTINUED) César e: VALENTE MORA [facility] : Age/S: 39 / M [address] [place] [address] Unit #: [id number] Loc: [place] [address] Phys: Deborah Belcher Acct: [id number] Dis Heath e: Status: REG ER PHONE #: Exam Date: 06/21/2019 1725 FAX #: [phone] Reason: ABDOMINAL PAIN; VOMITING/DIARRHEA EXAMS: CPT CODE: [id number] CT ABD PELVIS W/CONT 12423 <Continued> ____ CT imaging performed at this location utilizes radiation dose optimization techniques which include one or more of the following: - Automated exposure control -Adjustment of the mA and/or kV according to patient size -Use of iterative reconstruction technique SL: ER-H at 1746 Reported and signed by: Young Queen M.D. CC: Arya Reynolds M.D.; Deborah Belcher Technologist:RT Philip(R)(CT) CTDI: DLP: Trnscb Date/Time: 06/21/2019 (174) [email or web address] Orig Print D/T: S: 06/21/2019 (1747) PAGE 2 Signed Report UA RFLX MICR CULT IF [id number] 17:42:00* Test Item Value Reference Range Interpretation Comments UA COLOR (test code = COLU) STRAW YEL/STRAW UA APPEARANCE (test code = APPU) CLEAR CLEAR UA GLUCOSE DIPSTICK (test code = DGLUU) NEGATIVE NEGATIVE UA BILIRUBIN DIPSTICK (test code = BILU) NEGATIVE NEGATIVE UA KETONE DIPSTICK (test code = KETU) NEGATIVE NEGATIVE UA SPECIFIC GRAVITY (test code = SGU) 1.009 1.005-1.030 N UA BLOOD DIPSTICK (test code = NEW) 2+ NEGATIVE A UA PH DIPSTICK (test code = NATHAN) 5.0 5.0-7.0 N UA PROTEIN DIPSTICK (test code = PROU) NEGATIVE NEGATIVE UA UROBILINIOGEN DIPSTICK (test code = URO) 0.2 mg/dL 0.2-1.0 UA NITRITE DIPSTICK (test code = AMY) NEGATIVE NEGATIVE UA LEUKOCYTE ESTERASE DIPSTICK (test code = LEUU) NEGATIVE NEGA TIVE UA WBC (test code = WBCU) 0-3 WBC/HPF 0-3 UA RBC (test code = RBCU) 0-3 RBC/HPF 0-3 UA WBC NO REFLEX (test code = WBCUCL) 0-3 WBC/HPF 0-3 UA BACTERIA (test code = BACU) NONE SEEN /HPF NONE SEEN UA SQUAMOUS CELLS (test code = SQU) NONE SEEN /HPF NONE SEEN UA MUCUS (test code = MUCU) TRACE /LPF NONE SEEN Indication for culture: Dysuria/FrequencySpecimen Description: [facility] W[facility]AUTO [id number] 17:36:00* Test Item Value Reference Range Interpretation Comments WHITE BLOOD CELL (test code = WBC) 7.62 x10 3/uL 4.5-11.0 N RED BLOOD CELL (test code = RBC) 5.09 x10 6/uL 4.00-5.60 N HEMOGLOBIN (test code = HGB) 15.5 g/dL 12.5-16.9 N HEMATOCRIT (test code = HCT) 47.4 % 37.5-50.7 N MEAN CELL VOLUME (test code = MCV) 93.1 fL 81.0-99.0 N MEAN CELL HGB (test code = MCH) 30.5 pg 27.0-33.0 N MEAN CELL HGB CONCETRATION (test code = MCHC) 32.7 g/dL 33.0-37. 0 L RED CELL DISTRIBUTION WIDTH CV (test code = RDW) 13.1 % 11.5- 14.5 N RED CELL DISTRIBUTION WIDTH SD (test code = RDW-SD) 44.9 fL 37 .0-54.0 N PLATELET COUNT (test code = PLT) 274 x10 3/uL 150-400 N MEAN PLATELET VOLUME (test code = MPV) 9.3 fL 7.0-9.0 H NEUTROPHIL % (test code = NT%) 61.9 % 56.0-77.0 N IMMATURE GRANULOCYTE % (test code = IG%) 0.3 % 0.0-2.0 N LYMPHOCYTE % (test code = LY%) 29.9 % 14.0-32.0 N MONOCYTE % (test code = MO%) 5.8 % 4.8-9.0 N EOSINOPHIL % (test code = EO%) 1.4 % 0.3-3.7 N BASOPHIL % (test code = BA%) 0.7 % 0.0-2.0 N NUCLEATED RBC % (test code = NRBC%) 0.0 % 0-0 N NEUTROPHIL # (test code = NT#) 4.72 x10 3/uL 2.0-7.6 N IMMATURE GRANULOCYTE # (test code = IG#) 0.02 x10 3/uL 0.00-0.03 N LYMPHOCYTE # (test code = LY#) 2.28 x10 3/uL 1.0-3.8 N MONOCYTE # (test code = MO#) 0.44 x10 3/uL 0.1-0.8 N EOSINOPHIL # (test code = EO#) 0.11 x10 3/uL 0.0-0.2 N BASOPHIL # (test code = BA#) 0.05 x10 3/uL 0.0-0.2 N NUCLEATED RBC # (test code = NRBC#) 0.00 x10 3/uL 0.0-0.1 N MANUAL DIFF REQUIRED (test code = MDIFF) NO - US ABDOMEN [id number] 17:15:00 Name: VALENTE MORA [facility] : 1980 Age/S: 39 / M [address] [place] [address] Unit #: [id number] Loc: [place] [address] Phys: Deborah Belcher Acct: [id number] Dis Date: Status: REG ER PHONE #: [phone] Exam Date: 06/21/20191656 FAX #: [phone] Reason: RUQ ABDOMINAL PAIN EXAMS: CPT CODE: [id number] US ABDOMEN LTD 73959 Clinical Indication: RUQ ABDOMINAL PAIN; Comparison: None TECHNIQUE: Grayscale and limited color sonographic evaluation of the abdomen was performed. FINDINGS: LIVER: The visualized liver shows normal contour, size, and morphology with normal parenchymal echo texture. Limited visualized portal vein is grossly patent. BILE DUCTS: The intrahepatic and extrahepatic bile ducts are not dilated with the common bile duct measuring 4 mm. The distal common bile duct is not well seen. GALLBLADDER: The gallbladder has been surgically resected. PANCREAS: The pancreas is subcutaneous by bowel gas pattern. KIDNEY: The right kidney measures 9.8 cm. There is normal renal contour and morphology, with normal parenchymal echotexture. There is no hydronephrosis. AORTA AND INFERIOR VENA CAVA: Visualized portions appear unremarkable. ASCITES: There is no right abdominal ascites. IMPRESSION: Cholecystectomy. O therwise unremarkable abdominal ultrasound. SL: MARINA AGUIRRE at 171 5 Reported and signed by: Puneet Acuna M.D. PAGE 1 Signed Report (CONTINUED) Name: VALENTE BENEDICT [facility] : 1980 Age/S: 39 / M [address] [place] [address] Bl Unit #: [id number] L oc: [place] [address] Phys: Deborah Belcher Acct: [id number] Dis Date: Status: REG ER PHONE #: [phone] Exam Date: 06/21/20191656 FAX #: [phone] Renea son: RUQ ABDOMINAL PAIN EXAMS: CPT CODE: [id number] US ABDOMEN LTD 51485 <Continued> CC: Arya Reynolds M.D.; Deborah Belcher Technologist: Samantha Levy RDMS(OB)(AB) Trnscb Date/Time: 06/21/2019 (1715) tMARIA GUADALUPE Orig Print D/T: S: 06/21/2019 (1718) Probe: PAGE 2 Signed Report BASIC METABOLIC [id number] 20:33:00* Test Item Value Reference Range Interpretation Comments SODIUM (test code = NA) 141 mmol/L 136-145 N POTASSIUM (test code = K) 4.0 mmol/L 3.5-5.1 N CHLORIDE (test code = CL) 106.0 mmol/L 98-107 N CARBON DIOXIDE (test code = CO2) 30.0 mmol/L 21-32 N ANION GAP (test code = GAP) 9.0 10-20 L GLUCOSE (test code = GLU) 106 mg/dL 74-106 N BLOOD UREA NITROGEN (test code = BUN) 13 mg/dL 7-18 N GLOMERULAR FILTRATION RATE (test code = GFR) > 60 mL/min >=60 Estimated GFR by using Modified MDRD formula.Chronic kidney disease is defined as either kidney damageor GFR <60 mL/min/1.73 m2 for >3 months. CREATININE (test code = CREAT) 1.00 mg/dL 0.7-1.3 N BUN/CREATININE RATIO (test code = BUN/CREA) 13.6 10-20 N CALCIUM (test code = CA) 9.3 mg/dL 8.5-10.1 N [id number] 20:33:00* Test Item Value Reference Range Interpretation Comments TROPONIN-I (test code = TROPI) <0.015 ng/mL 0-0.045 N - XR CHEST 1 [id number] 20:27:00 FAX: Luan Strange MD [phone] [place]: St: [facility] FAX: Arya Corley MD [phone] Name: VALENTE MORA [facility] : 1980 Age/S: 39/M [address] [facility] Unit #: [id number] Loc: [place] [address] Phys: Luan Strange MD Acct: [id number] Dis Date: Status: REG ER PHONE #: [phone] Exam Date: 04/25/20192009 FAX #: [phone] Reason: CHEST PAIN EXAMS: CPT CODE: [id number] XR CHEST 1 V 68072 REASON FOR EXAM: CHEST PAIN Exam Order Date: 04/25/2019 7:47 PM Ordering M.D.: Luan Strange MD PROCEDURE: - XR CHEST 1 V COMPARISON: Frontal chest x-ray February 19, 2019 FINDINGS: The lungs are clear. There is no pleural effusion or pneumothorax. Pulmonary vascularity is within normal limits. Cardiomediastinal silhouette is normal in size for technique. The mediastinal contours are within normal limits. Musculoskeletal structures are within normal limits. The visualized upper abdomen is within normal limits. IMPRESSION: No acute cardiopulmonary process. Location: [facility] El ectronically Signed by Reuben Laguerre MD on 04/25/2019 at 2026 Reported and signed by: Reuben Laguerre MD CC: Luan Strange MD; Arya Wren cia Technologist: Yasmine Mcrae(R) Trnscrd Date/Time/By: 04/25/2019 (2026) : By: [email or web address] Orig Print D/T: S: 04/25/2019 (2029) PAGE 1 Signed Report CBC W/O DIFF 2019-04-25 20:26:00* Test Item Value Reference Range Interpretation Comments WHITE BLOOD CELL (test code = WBC) 6.8 K/mm3 4.5-12.5 N RED BLOOD CELL (test code = RBC) 5.09 mill/mm3 4.0-5.8 N HEMOGLOBIN (test code = HGB) 15.4 gram/dL 13.0-17.5 N HEMATOCRIT (test code = HCT) 47.2 % 42.0-52.0 N MEAN CELL VOLUME (test code = MCV) 92.7 fL 80-98 N MEAN CELL HGB (test code = MCH) 30.3 picogram 27.0-33.0 N MEAN CELL HGB CONCETRATION (test code = MCHC) 32.6 gram/dL 33.0-36. 0 L RED CELL DISTRIBUTION WIDTH (test code = RDW) 12.8 % 11.6-16. 2 N PLATELET COUNT (test code = PLT) 288 K/mm3 150-450 N MEAN PLATELET VOLUME (test code = MPV) 9.2 fL 6.7-11.0 N BASIC METABOLIC [id number] 20:20:00* Test Item Value Reference Range Interpretation Comments SODIUM (test code = NA) 141 mmol/L 136-145 N POTASSIUM (test code = K) 4.0 mmol/L 3.5-5.1 N CHLORIDE (test code = CL) 106.0 mmol/L 98-107 N CARBON DIOXIDE (test code = CO2) mmol/L 21-32 ANION GAP (test code = GAP) 10-20 GLUCOSE (test code = GLU) mg/dL 74-106 BLOOD UREA NITROGEN (test code = BUN) mg/dL 7-18 GLOMERULAR FILTRATION RATE (test code = GFR) mL/min >=60 CREATININE (test code = CREAT) mg/dL 0.7-1.3 BUN/CREATININE RATIO (test code = BUN/CREA) 10-20 CALCIUM (test code = CA) mg/dL 8.5-10.1 [id number] 20:20:00* Test Item Value Reference Range Interpretation Comments TROPONIN-I (test code = TROPI) ng/mL 0-0.045 CBC W/O [id number] 20:17:00* Test Item Value Reference Range Interpretation Comments WHITE BLOOD CELL (test code = WBC) K/mm3 4.5-12.5 RED BLOOD CELL (test code = RBC) mill/mm3 4.0-5.8 HEMOGLOBIN (test code = HGB) 15.4 gram/dL 13.0-17.5 N HEMATOCRIT (test code = HCT) 47.2 % 42.0-52.0 N MEAN CELL VOLUME (test code = MCV) fL 80-98 MEAN CELL HGB (test code = MCH) picogram 27.0-33.0 MEAN CELL HGB CONCETRATION (test code = MCHC) gram/dL 33.0-36. 0 RED CELL DISTRIBUTION WIDTH (test code = RDW) % 11.6-16. 2 PLATELET COUNT (test code = PLT) K/mm3 150-450 MEAN PLATELET VOLUME (test code = MPV) fL 6.7-11.0 CT Renal Stone [id number] 10:56:39Hm Interface, Radiology Results 02/26/2019 10:59 AM CDTEXAMINATION: CT RENAL STONE PROTOCOLCLINICAL HISTORY: Hematuria unknown causeTECHNIQUE: Multiple axial images of the abdomen and pelvis were obtained without intravenous administration of iodinated contrast. Sagittal and coronal computerized reformatted images were also obtained. The lack of intravenous contrast reduces the sensitivity of detecting solid organ disease.CT imaging was performed with iterative reconstruction techniques and/or automated exposure control to reduce radiation dose.COMPARISON: None.FINDINGS:Lower chest: No parenchymal abnormality is noted in the lung bases.Abdomen: Limited assessment for solid organ and vascular dise ase in the absence of contrast.No free air is seen in the abdomen. There is no e vidence of pneumatosis.Limited noncontrast images of the liver demonstrates fatt y infiltration. No definite focal liver lesion can be identified on this noncont rast examination.Prior cholecystectomy. No significant dilatation of the biliary tree.The spleen is not enlarged. The adrenal glands are unremarkable.Within the limitations of a noncontrast examination, no definite focal abnormality can be seen in the pancreas.The abdominal aorta is nonaneurysmal.No significant adenopa thy in the upper abdomen, retroperitoneum, or mesenteric root by size criteria.T here are a few scattered diverticula of the colon without findings to suggest di verticulitis. There is no evidence of appendicitis. There is no thickening of th e small bowel or findings to suggest underlying small bowel obstruction. The sto mach is grossly unremarkable.No ascites. No suspicious peritoneal or omental nod ularity.Within the limitations of a noncontrast examination, there is no evidenc e of a solid mass seen in either kidney. There is no evidence of hydronephrosis or hydroureter. No renal stone or evidence of a ureteral stone.No ascites. Prior hernia repair with mesh.Pelvis: Urinary bladder is grossly unremarkable. No pel leonid adenopathy.Minor degenerative changes of the bones. No definite suspicious b larissa lesion is identified.IMPRESSION:1.No CT evidence of an acute abnormality in the abdomen or pelvis.2.Fatty infiltration of the liver.3.Prior cholecystectomy. 4.Colonic diverticulosis without evidence of acute diverticulitis.5.Additional f indings and details as above.[facility]-[id number] MethodistComprehensive metabolic [id number] 10:56:37* Test Item Value Reference Range Interpretation Comments Sodium (test code = 2951-2) 140 135- 148 mEq/L Potassium (test code = 2823-3) 4.2 3.5- 5.0 mEq/L Chloride (test code = 2074-0) 101 98- 112 mEq/L CO2 (test code = 2027-) 27 24- 31 mEq/L Anion gap (test code = 68561-3) 12@ANIO 7- 15 mEq/L BUN (test code = 3094-0) 14 mg/dL 6-20 Creatinine (test code = 2160-0) 0.99 mg/dL 0.7-1.2 Glucose (test code = 2345-7) 106 mg/dL 65-99 H Calcium (test code = 46557-1) 9.5 mg/dL 8.3-10.2 Protein (test code = 2885-2) 8.0 g/dL 6.3-8.3 4.6-7.0 g/dL1 week 4.4-7.6 g/dL7 months-1year 5.1-7.3 g/dL1-2 years 5.6-7.5 g/dL>3 years 6.0-8.0 g/qU30-433 6.3-8.3 g/dL Albumin (test code = 1751-7) 4.2 g/dL 3.5-5 A/G ratio (test code = 1759-0) 1.1 0.7-3.8 Alkaline phosphatase (test code = 6768-6) 142 U/L 40-129 H AST (test code = 1920-8) 22 U/L 10-50 ALT (test code = 1742-6) 41 U/L 5-50 Total bilirubin (test code = 1974-2) 0.5 mg/dL 0-1.2 Lab Interpretation (test code = 91317-1) Abnormal [facility] MethodistLipase [id number] 10:56:37* Test Item Value Reference Range Interpretation Comments Lipase (test code = 3040-3) 25 U/L 13-60 [facility] MethodistEstimated [id number] 10:56:37* Test Item Value Reference Range Interpretation Comments Estimated GFR (test code = 5488) >=90 mL/min/1.73 m2 Catergory Units InterpretationG1 >=90 Normal or highG2 60-89 Mildly zcdutufrlK1p 45-59 Mildly to moderately ysniomszhU8j 30-44 Moderately to severely decreasedG4 15-29 Severely decreasedG5 <15 Kidney failureThe eGFR was calculated using the Chronic Kidney Disease Epidemiology Collaboration (CKD-EPI) equation. Interpretation is based on recommendations of the National Kidney Foundation-Kidney Disease Outcomes Quality Initiative (NKF-KDOQI) published in 2014. Shahram MethodistUrinalysis screen and microscopy, with reflex to culture 2019-02-26 10:46:14* Test Item Value Reference Range Interpretation Comments Specimen site (test code = 6332640) Clean catch Color, UA (test code = 5778-6) Yellow Appearance, UA (test code = 5767-9) Clear Specific gravity, UA (test code = 5811-5) 1.023 1.001-1.035 pH, UA (test code = 5803-2) 6.0 5.0-8.5 Protein, UA (test code = 73897-8) 1+ Negative A Glucose, UA (test code = 35502-5) Negative Negative Ketones, UA (test code = 2514-8) Negative Negative Bilirubin, UA (test code = 5770-3) Negative Negative Blood, UA (test code = 5794-3) Small Negative A Nitrite, UA (test code = 5802-4) Negative Negative Urobilinogen, UA (test code = 07058-4) <2.0 <2.0 Leukocyte esterase, UA (test code = 5799-2) Negative Negative WBC, UA (test code = 5821-4) 1 0- 1 /HPF RBC, UA (test code = 67177-8) 2 0- 5 /HPF Bacteria, UA (test code = 95920-8) None seen None seen Yeast, UA (test code = 12074-2) None seen Yeast with pseudohyphae, UA (test code = 14642-2) None seen Lab Interpretation (test code = 28906-3) Abnormal Shahram HinduUrine [id number] 10:39:38* Test Item Value Reference Range Interpretation Comments Urine culture (test code = 4921631) SEE COMMENT Bacteriuria screen negative. Shahram HaiderCBC with platelet and qrbxrrixlzsx8773-34-01 10:22:03* Test Item Value Reference Range Interpretation Comments WBC (test code = 69447-3) 6.62 4.50- 11.00 k/uL RBC (test code = 27436-9) 5.56 m/uL 4.4-6 HGB (test code = 718-7) 16.6 g/dL 14-18 HCT (test code = 4544-3) 51.1 % 41-51 H MCV (test code = 787-2) 91.9 fL 82-100 MCH (test code = 785-6) 29.9 pg 27-34 MCHC (test code = 786-4) 32.5 g/dL 31-37 RDW - SD (test code = 08777-4) 43.0 fL 37-55 MPV (test code = 64316-4) 9.1 fL 8.8-13.2 Platelet count (test code = 04060-1) 350 150- 400 k/uL Nucleated RBC (test code = 79481-0) 0.00 /100 WBC Neutrophils (test code = 54857-0) 62.4 % 39-69 Lymphocytes (test code = 76406-6) 29.5 % 25-45 Monocytes (test code = 65354-6) 5.0 % 0-10 Eosinophils (test code = 20919-3) 1.8 % 0-5 Basophils (test code = 61792-9) 0.8 % 0-1 Immature granulocytes (test code = 30229-6) 0.5 % 0-1 "Immature granulocytes" (promyelocytes, myelocytes, metamyelocytes) Lab Interpretation (test code = 33528-9) Abnormal [facility] W/AUTO [id number] 10:17:00* Test Item Value Reference Range Interpretation Comments WHITE BLOOD CELL (test code = WBC) 6.71 x10 3/uL 4.5-11.0 N RED BLOOD CELL (test code = RBC) 5.12 x10 6/uL 4.00-5.60 N HEMOGLOBIN (test code = HGB) 15.5 g/dL 12.5-16.9 N HEMATOCRIT (test code = HCT) 47.8 % 37.5-50.7 N MEAN CELL VOLUME (test code = MCV) 93.4 fL 81.0-99.0 N MEAN CELL HGB (test code = MCH) 30.3 pg 27.0-33.0 N MEAN CELL HGB CONCETRATION (test code = MCHC) 32.4 g/dL 33.0-37. 0 L RED CELL DISTRIBUTION WIDTH CV (test code = RDW) 13.0 % 11.5- 14.5 N RED CELL DISTRIBUTION WIDTH SD (test code = RDW-SD) 44.6 fL 37 .0-54.0 N PLATELET COUNT (test code = PLT) 294 x10 3/uL 150-400 N MEAN PLATELET VOLUME (test code = MPV) 9.8 fL 7.0-9.0 H NEUTROPHIL % (test code = NT%) 56.5 % 56.0-77.0 N IMMATURE GRANULOCYTE % (test code = IG%) 0.6 % 0.0-2.0 N LYMPHOCYTE % (test code = LY%) 28.0 % 14.0-32.0 N MONOCYTE % (test code = MO%) 9.1 % 4.8-9.0 H EOSINOPHIL % (test code = EO%) 5.1 % 0.3-3.7 H BASOPHIL % (test code = BA%) 0.7 % 0.0-2.0 N NUCLEATED RBC % (test code = NRBC%) 0.0 % 0-0 N NEUTROPHIL # (test code = NT#) 3.79 x10 3/uL 2.0-7.6 N IMMATURE GRANULOCYTE # (test code = IG#) 0.04 x10 3/uL 0.00-0.03 H LYMPHOCYTE # (test code = LY#) 1.88 x10 3/uL 1.0-3.8 N MONOCYTE # (test code = MO#) 0.61 x10 3/uL 0.1-0.8 N EOSINOPHIL # (test code = EO#) 0.34 x10 3/uL 0.0-0.2 H BASOPHIL # (test code = BA#) 0.05 x10 3/uL 0.0-0.2 N NUCLEATED RBC # (test code = NRBC#) 0.00 x10 3/uL 0.0-0.1 N MANUAL DIFF REQUIRED (test code = MDIFF) NO - XR CHEST 1 [id number] 09:53:00 FAX: Arya Corley MD [phone] [place]: St: REG FAX: Iraj Larsen [phone] Name: VALENTE MORA JR [facility] : 1980 Age/S: 39/M [address] [place] [address] Blvd Unit #: [id number] Loc: [place] [address] Phys: Iraj Larsen Acct: [id number] Dis Date: Status: REG ER PHONE #: [phone] Exam Date: 02/19/2019925 FAX #: [phone] Reason: cough, congestion, fever EXAMS: CPT CODE: [id number] XR CHEST 1 V 17669 1 view chest portable: HISTORY: Cough and fever FINDINGS: Both lungs are clear. No infiltrate or pleural fluid. The heart and mediastinal contour stable from 01/31/2019. IMPRESSION: No acute finding. SL: [id number] at 0953 Reported and signed by: Eddie Cox M.D. CC: Arya Reynolds M.D.; Iraj HIGUERA Technologist: RT Leon(Patricia) Trnscrd Date/Time/By: 02/19/2019 (0953) : By: Delmis Orig Print D/T: S: 02/19/2019 (0956) PAGE 1 Signed Report [id number] 09:28:00* Test Item Value Reference Range Interpretation Comments LIPASE (test code = LIP) 109 IUnit/L 73-393 N URINALYSIS [id number] 07:49:00* Test Item Value Reference Range Interpretation Comments UA COLOR (test code = COLU) YELLOW YEL/STRAW UA APPEARANCE (test code = APPU) CLEAR CLEAR UA GLUCOSE DIPSTICK (test code = DGLUU) NEGATIVE NEGATIVE UA BILIRUBIN DIPSTICK (test code = BILU) NEGATIVE NEGATIVE UA KETONE DIPSTICK (test code = KETU) NEGATIVE NEGATIVE UA SPECIFIC GRAVITY (test code = SGU) 1.021 1.005-1.030 N UA BLOOD DIPSTICK (test code = NEW) 1+ NEGATIVE A UA PH DIPSTICK (test code = NATHAN) 6.0 5.0-7.0 N UA PROTEIN DIPSTICK (test code = PROU) NEGATIVE NEGATIVE UA UROBILINIOGEN DIPSTICK (test code = URO) 0.2 mg/dL 0.2-1.0 UA NITRITE DIPSTICK (test code = AMY) NEGATIVE NEGATIVE UA LEUKOCYTE ESTERASE DIPSTICK (test code = LEUU) NEGATIVE NEGA TIVE UA RBC (test code = RBCU) 11-20 RBC/HPF 0-3 UA WBC NO REFLEX (test code = WBCUCL) 0-3 WBC/HPF 0-3 UA BACTERIA (test code = BACU) NONE SEEN /HPF NONE SEEN UA SQUAMOUS CELLS (test code = SQU) NONE SEEN /HPF NONE SEEN UA MUCUS (test code = MUCU) 4+ /LPF NONE SEEN A BASIC METABOLIC [id number] 07:08:00* Test Item Value Reference Range Interpretation Comments SODIUM (test code = NA) 138 mEq/L 134-147 N POTASSIUM (test code = K) 3.6 mEq/L 3.4-5.0 N CHLORIDE (test code = CL) 103 mEq/L 100-108 N CARBON DIOXIDE (test code = CO2) 33 mEq/L 21-33 N ANION GAP (test code = GAP) 6 0-20 N GLUCOSE (test code = GLU) 134 mg/dL 70-110 H BLOOD UREA NITROGEN (test code = BUN) 13 mg/dL 7-18 N GLOMERULAR FILTRATION RATE (test code = GFR) 83.2 105-110 L Units of measure = ml/min/1.73 m2 CREATININE (test code = CREAT) 1.0 mg/dL 0.6-1.3 N CALCIUM (test code = CA) 9.0 mg/dL 8.0-10.5 N - CT ABD PELVIS W/O [id number] 07:05:00 Name: VALENTE MORA [facility] : 1980 Age/S: 39 / M [address] [place] [address] Unit #: [id number] Loc: [place] [address] Phys: Estevan Castillo [employer] Acct: [id number] Dis Date: Status: REG ER PHONE #: [phone] Exam Date: 02/19/2019 0648 FAX #: [phone] Reason: R flank pain and lower abd pain EXAMS: CPT CODE: [id number] CT ABD PELVIS W/O CONT 29120 PROCEDURE: CT ABDOMEN AND PELVIS WITHOUT CONTRAST (RENAL STONE CT) INDICATION: Right flank pain and lower abdominal pain COMPARISON: 11/04/2017 TECHNIQUE: Noncontrasted helical imaging was performed diaphragm through the symphysis as a renal stone protocol with multiplanar reconstructions. CT imaging performed at this location utilizes radiation dose optimization techniques which include one or more of the following: -Automated exposure control -Adjustment of the mA and/or kV according to patient size -Use of iterative reconstruction technique CT Radiation Dose DLP 712.63 mGy-cm LIMITATIONS: Evaluation of abdominal viscera and vascular structures may be limited by the lack of intravenous contrast, which is standard for urinary calculus assessment CT. FINDINGS: KIDNEYS: The renal contours are normal. No urinary calculi or hy dronephrosis. Mild symmetric perinephric stranding is chronic and nonspeci fic. LOWER CHEST: The lung bases are clear. LIVER: T he liver is diminished in attenuation with sparing adjacent to the gustavo h epatis. No focal liver lesion. BILIARY TREE: No biliary dilatation . GALLBLADDER: Surgically absent SPLEEN: Normal. PANCREAS: Normal. ADRENALS: Normal. BOWEL: The unopacified stomach and small bowel are unremarkable. No CT evidence for appendicitis. Scattered fecal material within normal caliber colon. F ew scattered left-sided colonic diverticula. No inflammatory changes. PAGE 1 Signed Report (CONTINUED) César e: VALENTE MORA [facility] : Age/S: 39 / M [address] [place] [address] Unit #: [id number] Loc: [place] [address] Phys: Estevan Castillo [employer] SU[employer] Acct: [id number] Dis Heath e: Status: REG ER PHONE #: Exam Date: 02/19/2019 0648 FAX #: [phone] Reason: R flank pain and lower abd pain EXAMS: CPT CODE: [id number] CT ABD PELVIS W/O CONT 08519 <Continued> PERITONEUM: No free intraperitoneal fluid or air. RETROPERITONEUM: No adenopathy. The aorta is normal. PELVIS: No pelvic mass. The urinary bladder is normal. MUSCULOSKELETAL: The skeleton is intact. IMPRESSION: 1. No urinary calculus or evidence for obstruction. 2. Mild symmetric perinephric stranding is chronic and nonspecific. Renal inflammation included in the differential. Please correlate with urinalysis. 3. Hepatic steatosis. SL: [id number] at 0705 Reported and signed by: Abhilash Bonilla M.D. CC: Estevan Castillo NP Technologist:RT Sherin(R) CTDI: DLP: Trnscb Date/Time: 02/19/2019 (07) t.ANA ROSAL Orig Print D/T: S: 02/19/2019 (0714) PAGE 2 Signed Report - XR CHEST 2 [id number] 14:42:00 FAX: Alondra Delcid NP [phone] [place]: St: PRE Name: VALENTE BASHIR [facility] : [birth year] Age/S: 39/M [address] [place] [address] Blvd Unit #: [id number] Loc: [place] [address] Phys: Alondra Delcid NP Acct: [id number] Dis Date: Status: PRE ER PHONE #: [phone] Exam Date: 01/31/2019 1432 FAX #: [phone] Reason: cough EXAMS: CPT CODE: [id number] XR CHEST 2 V 42074 PROCEDURE: Chest Radiograph. Clinical Indication: Cough, difficulty breathing. Compar neymar: Chest radiograph 12/11/2017. FINDINGS: The ches t shows normal lung volumes without interstitial or airspace opacities, pl eural effusions or pneumothorax. The heart size and pulmo nary vasculature are normal. The trachea is midline. There are no clinical ly significant osseous abnormalities noted. IMPRESSION: 1. No chest radiographic evidence of acute cardiopulmonary disease. SL: CY-H Electronically Si gned by Jimenez Vigil on 01/31/2019 at 1442 Reported and signed by: Lorenzo Wilcox CC: Alondra Delcid NP Technologist: RT Sukumar(Patricia) Trnscrd Heath e/Time/By: 01/31/2019 (4182) : By: Tracie Orig Print D/T: S: 2018 (5135) PAGE 1 Signed Report ABDOMEN COMP INCL UPR or DECUB [place] [address] Patient Name: VALENTE MORA JR MR #: [id number] : 1980 Age/Sex: 37/M Req #: [id number] Adm Physician: Ordered by: EMILY MINOR MD Report #: [id number] Location: [facility]/Bed: Procedure: [id number] DX/ABDOMEN COMP INCL UP R or DECUB Exam Date: 05/21/17 Exam Time: 2149 REPORT STATUS: Signed ABDOMEN COMP INCL UPR or DECUB Clinical history: S PAIN S/P cholecystectomy S [id number] S 2150 S Y Technique: AP views abdom en Comparison: None Findings: Abdomen: No dilated loops of bowel. No ev idence of free air. Right hemidiaphragm is partially excluded from view. Other: Cholecystectomy clips. Evidence of mesh hernia repair over the pelvis. Impression: Nonobstructive bowel gas pattern. Signed by: Dr Camacho ortega MD on 05/21/2017 10:43 PM Dictated By: CAMACHO Orozco [facility] Signed By: CAMACHO MCKEON MD on 05/21/172242 Transcribed By: THANG santoyo 05/21/172242 COPY TO: EMILY MINOR MD
--- OUTSIDE RECORDS SUMMARY | 2020-02-21 19:56 | XMS REPORT | Clinical Summary ---
Author Author [facility] ict Organization [facility] ict Address Unknown Phone Unavailable Care Team Providers Care Slot Floorman Name Role Phone PCP Unavailable Allergies Comments Active Allergy Reactions Severity Noted Date Penicillins 01/19/2014 Medications End Date Status Medication Sig Dispensed Refills Start Date Active clonazePAM (KLONOPIN) 1 Take 1 mg by 0 mg tablet mouth 2 times daily as needed for Anxiety. Active methocarbamol Take 1 tablet 40 tablet 0 (ROBAXIN-750) 750 mg by mouth 4 6 tabletIndications: times daily Tension headache as needed for Other (muscle spasms). Active gabapentin (NEURONTIN) Take 1 30 capsule 0 100 mg capsule by 6 capsuleIndications: mouth 3 times Tension headache daily. Active predniSONE (DELTASONE) 10 Take 1 tablet 5 tablet 0 mg tabletIndications: by mouth 6 Neck strain, sequela daily. Active dicyclomine (BENTYL) 10 Take 1 90 capsule 5 201 mg capsuleIndications: capsule by 6 Epigastric pain mouth 4 times daily before meals & at bedtime as needed. Active Problems Problem Noted Date Musculoskeletal chest pain 03/16/2015 Vomiting 04/07/2014 Overview: Reported 02/21 by pt as occuring nearly daily for 2 years. Referred to GI, who requested further lab/Xrays. Inform ed pt of need to return for these. Fatty liver 01/19/2014 Hyperlipidemia 01/19/2014 Costochondritis 01/19/2014 Polydipsia Polyuria Immunizations Name Administration Dates Next Due Influenza Vaccine 07/27/2015 (Deferred: Patie nt Refused), 07/25/2015 (Deferred: Patient Refused), 07/21/2015 (Deferred: Patient Refused), 03/30/2015 (Deferred: Other - Patient feeling ill in clinic will retu rn for vaccine) Family History Medical History Relation Name Comments Cancer Brother Lukemia Hypertension Father Diabetes Maternal Grandmother Heart Maternal heart attack Grandmother Psychiatry Mother depression Relation Name Status Comments Brother Alive Brother Father Alive Maternal Grandfather Alive Maternal Grandmother Mother Alive Paternal Grandfather Alive Paternal Grandmother Alive Sister Alive Social History Date Tobacco Use Types Packs/Day Years Used Never Smoker Smokeless Tobacco: Never Used Tobacco Cessation: Counseling Given: No Drinks/Week oz/Week Comments Alcohol Use quit 6 yrs ago No Sex Assigned at Date Recorded Not on file Industry Job Start Date Occupation Not on file Not on file Not on file Travel End Travel History Travel Start No recent travel history available. Last Filed Vital Signs Not on file Plan of Treatment Not on file Results Not on fileafter 02/20/2019 Insurance Type Payer Benefit Subscriber ID Effective Phone Address Plan / Dates Group BC/BS BC/BS PPO xxxxxxxxxxxx 2015- [phone] [id number] [place] [address] (Work)
[2020-02-21] MEDS ORDERED: SODIUM CHLORIDE 0.9% 1000ML 1,000 ML IV ONE (20:00)
[2020-02-21 20:08] LABS: ALANINE AMINOTRANSFERASE 23 IU/L (0-55); ALBUMIN 4.3 g/dL (3.5-5.0); ALBUMIN/GLOBULIN RATIO 1.4 (0.8-2.0); ALKALINE PHOSPHATASE 103 IU/L (40-150); ANION GAP 16.9 mmol/L (8-16); BLOOD UREA NITROGEN 14 mg/dL (7-26); BUN/CREATININE RATIO 13 (6-25); CALCIUM 8.8 mg/dL (8.4-10.2); CARBON DIOXIDE 25 mmol/L (22-29); CHLORIDE 102 mmol/L (98-107); CREATINE KINASE 50 IU/L (30-200); CREATININE, SERUM 1.04 mg/dL (0.72-1.25); EST GLOMERULAR FILTRATION RATE > 60 ML/MIN (60-); GLUCOSE 96 mg/dL (74-118); POTASSIUM 3.9 mmol/L (3.5-5.1); SODIUM 140 mmol/L (136-145)
[2020-02-21] MEDS ORDERED: PANTOPRAZOLE 40 MG 10ML VIAL IV STA (20:23)
[2020-02-21] MEDS ORDERED: FAMOTIDINE 20 MG/2 ML VIAL IV SCH (20:30)
[2020-02-21] MEDS ORDERED: DONNATAL/LIDOCAINE/MAALOX 30 ML SUSP PO SCH (20:30)
[2020-02-21] MEDS ORDERED: LIDOCAINE VISC 2% SOLN 15 ML UDC ONE (20:40)
[2020-02-21] MEDS ORDERED: BELLADONNA ALK/PHENOBARBITAL 5 ML UDC ONE (20:40)
[2020-02-21] MEDS ORDERED: MAGNESIUM/ALUMINUM/SIMETHICONE 30 ML UDC ONE (20:40)
--- NOTE | 2020-02-21 22:34 | Diagnostic Imaging Report ---
EXAM: CT Abdomen and Pelvis WITH contrast INDICATION: Abdominal pain , nausea, vomiting COMPARISON: None. TECHNIQUE: Abdomen and pelvis were scanned utilizing a multidetector helical scanner from the lung base to the pubic symphysis after administration of IV contrast. Coronal and sagittal reformations were obtained. Routine protocol was performed. Scan was performed when during portal venous phase. IV CONTRAST: 100 mL of Isovue 370 ORAL CONTRAST: None COMPLICATIONS: None RADIATION DOSE: Total DLP: 800 mGy*cm Estimated effective dose: (DLP x 0.015 x size factor) mSv CTDIvol has been reviewed. It is below the limits set by the Radiation Protocol Committee (RPC). Dose modulation, iterative reconstruction, and/or weight based adjustment of the mA/kV was utilized to reduce the radiation dose to as low as reasonably achievable. FINDINGS: LINES and TUBES: None. LOWER THORAX: Unremarkable HEPATOBILIARY: No focal hepatic lesions. No biliary ductal dilation. GALLBLADDER: There are cholecystectomy clips. SPLEEN: No splenomegaly. PANCREAS: No focal masses or ductal dilatation. ADRENALS: No adrenal nodules KIDNEYS/URETERS: Kidneys enhance symmetrically. No hydronephrosis. No cystic or solid mass lesions. No stones. GI TRACT: No abnormal distention, wall thickening, or evidence of bowel obstruction. Colonic diverticuli. Appendix is normal. PELVIC ORGANS/BLADDER: Unremarkable. LYMPH NODES: No lymphadenopathy. VESSELS: Unremarkable. PERITONEUM / RETROPERITONEUM: No free air or fluid. BONES: Unremarkable. SOFT TISSUES: Hernia repair mesh intact in the lower anterior peritoneum. IMPRESSION: No acute CT abnormality in the abdomen or pelvis. Colonic diverticulosis without diverticulitis. Signed by: Rc Morales DO on 02/21/2020 10:30 PM
[2020-02-21] MEDS ORDERED: MAALOX MAXIMUM355 ML PO (22:57)
[2020-02-21 22:58] VITALS: BP 113/69
== END 2020-02-21 23:05 | disposition home or self-care (01) ==
LOC: ER 19:45
DX: R10.12 Left upper quadrant pain (principal); R11.2 Nausea with vomiting, unspecified; K29.70 Gastritis, unspecified, without bleeding; F41.9 Anxiety disorder, unspecified
CPT/HCPCS: 36415; 74177; 80053; 81001; 82550; 82553; 83690; 84484; 85025; 93005; 99284; C9113; J2270; J2405; J7030; Q9967

== ENCOUNTER 2020-02-25 12:14 | Emergency (ER) | payer BC ==
[~2020-02-25] VITALS: Ht 170.2 cm; Wt 105.7 kg
[~2020-02-25 12:14] MED LIST changes: +MAALOX MAXIMUM355 ML PO
--- NOTE | 2020-02-25 13:32 | Diagnostic Imaging Report ---
EXAMINATION: CHEST SINGLE (PORTABLE) INDICATION: Cough COMPARISON: CT abdomen and pelvis of 02/21/2020 FINDINGS: LINES/TUBES:None LUNGS:The lungs are well-inflated. No focal consolidation or pulmonary edema. PLEURA:No pleural effusion or pneumothorax. MEDIASTINUM:The cardiomediastinal silhouette appears normal in size and shape. BONES/SOFT TISSUES:No acute osseous injury. ABDOMEN:No free air under the diaphragm. IMPRESSION: No focal pneumonia or pulmonary edema. Signed by: Maisha Ricardo MD on 02/25/2020 1:29 PM
[2020-02-25] MEDS ORDERED: SODIUM CHLORIDE 0.9% 1000ML 1,000 ML IV SCH (14:45)
--- NOTE | 2020-02-25 15:28 | Emergency Department Note ---
History of Present Illnes History of Present Illness Chief Complaint: Respiratory History of Present Illness This is a 40 year old male arrived to the ED with complaints of cough and post nasal drip. Patient states he continuously has to clear his throat. Chief Complaint Comment PATIENT IN FROM HOME WITH COMPLAINTS OF SHORTNESS OF BREATH, PAIN IN EARS, ESOPHAGEAL PAIN. PATIENT STATES THAT HE WAS SEEN SATURDAY AFTER HIS EGD FOR ESOPHAGEAL PAIN. PATIENT STATES THAT HE HAS BEEN COUGHING AND SHORT OF BREATH, BUT HE HAS A DOCTORS APPOINTMENT AT 1600 TODAY. RATES PAIN 01/17 Historian: Patient Arrival Mode: Car Progression: unable to specify Chronicity: chronic Relieving factors: none Past Medical/Family History Physician Review I have reviewed the patient's past medical and family history. Any updates have been documented here. Past Medical History Recent Fever: No Clinical Suspicion of Infectio: No New/Unexplained Change in Ment: No Past Medical History: Anxiety, Depression Other Medical History: Borderline DM Past Surgical History: Hernia Repair Other Surgery: HERNIA Review of Systems Review of Systems Constitutional: Reports no symptoms EENTM: Reports as per HPI, Reports nose congestion Cardiovascular: Reports no symptoms Respiratory: Reports no symptoms Gastrointestinal: Reports no symptoms Genitourinary: Reports no symptoms Musculoskeletal: Reports no symptoms Integumentary: Reports no symptoms Neurological: Reports no symptoms Psychological: Reports no symptoms Endocrine: Reports no symptoms Hematological/Lymphatic: Reports no symptoms Physical Exam Related Data Allergies: Coded Allergies: Penicillins (Verified Allergy, Unknown, 05/08/17) Triage Vital Signs Vital Signs Date Time Temp Pulse Resp B/P (MAP) Pulse Ox O2 Delivery O2 Flow Rate FiO2 02/25/20 12:53 98.7 104 20 116/77 97 Room Air Vital signs reviewed: Yes Physical Exam CONSTITUTIONAL Constitutional: Present well-developed, Present well-nourished HENT HENT: Present normocephalic, Present atraumatic, Present oropharynx clear/moist, Present nose normal HENT L/R: Present left ext ear normal, Present right ext ear normal EYES Eyes: Reports PERRL, Reports conjunctivae normal NECK Neck: Present ROM normal PULMONARY Pulmonary: Present effort normal, Present breath sounds normal CARDIOVASCULAR Cardiovascular: Present regular rhythm, Present heart sounds normal, Present capillary refill normal, Present normal rate GASTROINTESTINAL Abdominal: Present soft, Present nontender, Present bowel sounds normal GENITOURINARY Genitourinary: Present exam deferred SKIN Skin: Present warm, Present dry MUSCULOSKELETAL Musculoskeletal: Present ROM normal NEUROLOGICAL Neurological: Present alert, Present oriented x 3, Present no gross motor or sensory deficits PSYCHOLOGICAL Psychological: Present mood/affect normal, Present judgement normal Assessment & Plan Medical Decision Making MDM 40-year-old male arrives to the ED with complaints of postnasal drip, and gastroesophageal reflux. Patient seen by me 2 days prior. Patient's symptoms appear to be acute sinusitis versus other non-emergent ENT process. No indication for further ED management. Patient stable for discharge outpatient ENT follow-up. Assessment & Plan Final Impression: (1) Sinusitis Depart Disposition: HOME, SELF-CARE Last Vital Signs Date Time Temp Pulse Resp B/P (MAP) Pulse Ox O2 Delivery O2 Flow Rate FiO2 02/25/20 12:53 98.7 104 20 116/77 97 Room Air Home Meds Active Scripts Mag Hydrox/Al Hydrox/Simeth (MAALOX MAXIMUM STRENGTH SUSP) 355 Ml Oral.susp, 15 ML PO TID, #120 ML Prov:SAEID CROOK DO 02/21/20 Reported Medications [Decongestant] No Conflict Check 05/10/17 [Tamiflu] No Conflict Check 05/10/17 Azithromycin (Z-JOVAN) 250 Mg Tablet, 250 MG PO DAILY, #1 UDPKT Z-Pack 05/08/17 [Breo Ellipta] No Conflict Check, INH DAILY 05/08/17 Albuterol Sulf* (PROAIR HFA INHALER*) 8.5 Gm Inh, 1 SPR INH PRN PRN for SHORTNESS OF BREATH 05/08/17 Rosuvastatin Calcium (CRESTOR) 10 Mg Tab, 10 MG PO DAILY THERAPEUTICALLY SUBSTITUTED WITH SIMVASTATIN 40MG 05/08/17 Omeprazole (OMEPRAZOLE) 40 Mg Capsule.dr, 40 MG PO DAILY 05/08/17 Baclofen (BACLOFEN) 10 Mg Tablet, 10 MG PO TID, #90 TAB 05/08/17 Meloxicam (MELOXICAM) 7.5 Mg Tablet, 15 MG PO DAILY, #30 TAB 05/08/17 Metformin Hcl (METFORMIN HCL) 500 Mg Tablet, 500 MG PO BID, #60 TAB 05/08/17 Clonazepam (CLONAZEPAM) 2 Mg Tab.rapdis, 2 MG PO PRN PRN for ANXIETY 05/08/17 Medications in the ED Sodium Chloride 1,000 ml @ 125 mls/hr Q8H IV ; Start 02/25/20 at 14:45; Stop 03/26/20 at 14:44 SAEID CROOK DO Feb 25, 2020 15:28
[2020-02-25 15:42] VITALS: BP 115/77
--- OUTSIDE RECORDS SUMMARY | 2020-02-26 10:27 | XMS REPORT | Continuity of Care Document ---
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 Name Role Phone [phone] [employer] Unavailable Un available Problems Problem Status Onset Date Classification Date Reported Comments Source Chest pain, unspecified 09/26/2019 09/28/2019 [facility] ABNORMAL EKG Active 09/26/2019 [facility] Other chest pain 02/10/2018 08/30/2018 [facility] CHEST PAIN Active 02/10/2018 [facility] R07.9 Active 08/16/2016 [facility] Discharge Diagnosis: Paresthesia 02/06/2016 02/09/2016 [facility] CHEST PAIN/NUMBNESS Active 02/06/2016 [facility] Discharge Diagnosis: Acute chest pain 12/27/2014 12/30/2014 [facility] SOB/LEFT HAND NUMBNESS Active 05/24/2014 [facility] Discharge Diagnosis: Peripheral neuropathy 01/26/2014 01/29/2014 [facility] CHEST PAIN, ARM TINGLING Active 01/26/2014 [facility] Discharge Diagnosis: Chest pain 12/14/2013 12/17/2013 [facility] Discharge Diagnosis: Costochondritis, acute 12/14/2013 12/17/2013 [facility] Anxiety (finding) Active Problem 09/28/2019 [facility] Hypercholesterolemia (disorder) Active Problem [facility] Pure hypercholesterolemia, unspecified 08/30/2018 [facility] Anxiety disorder, unspecified 08/30/2018 [facility] Type 2 diabetes mellitus without complications 08/30/2018 [facility] Nausea with vomiting, unspecified 08/30/2018 [facility] Shortness of breath 08/30/2018 [facility] 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 08/30/2018 [facility] 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 08/30/2018 [facility] 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 (Same as: Phenergan) Inactive 02/10/2018 [facility] Saline Flush 0.9% Notes: (Same as: BD Posiflush) Inactive 02/10/2018 [facility] Sodium Chloride 0.9% (Bolus) IV 1,000 mL, Infuse Over: 1 hr, Route: IV, ONCE, Priority: STAT, Dosing Weight 100.909 kg, Start date: 02/10/18 16:51:00 CDT, Stop date: 02/10/18 16:51:00 CDT Inactive 02/10/2018 [facility] Aspirin 81 MG Chewable Tablet 81 mg = 1 tab, PO, Daily, # 21 tab, 0 Refill(s) Active 02/06/2016 [facility] Aspirin Notes: Take with food. Inactive 02/06/2016 [facility] clonazePAM 1 mg oral tablet, disintegrating 1 mg = 1 tab, PO, TID, 0 Refill(s) Active 02/06/2016 [facility] citalopram 10 mg oral tablet 1 0 mg = 1 tab, PO, Bedtime, # 30 tab, 0 Refill(s) Active 02/06/2016 [facility] atorvastatin 10 mg oral tablet 10 mg = 1 tab, PO, Bedtime, # 30 tab, 0 Refill(s) Active 02/06/2016 [facility] naproxen 500 mg oral enteric coated matilda yed-release tablet 500 mg = 1 tab, PO, BID, PRN Pain, # 30 tab, 0 Refill(s) Active 02/06/2016 [facility] piroxicam 20 mg oral capsule 2 0 mg = 1 cap, PO, Daily, PRN Pain, # 10 cap, 0 Refill(s) Active 02/06/2016 [facility] gabapentin 300 MG Oral Capsule 300 mg = 1 cap, PO, BID, # 90 cap, 1 Refill(s) Active 02/06/2016 [facility] tizanidine 4 mg oral capsule 4 mg = 1 cap, PO, Q8H, 0 Refill(s) Active 02/06/2016 [facility] Metformin hydrochloride 500 MG Oral Tablet 500 mg = 1 tab, PO, BID-Meals, # 60 tab, 0 Refill(s) Active 02/06/2016 [facility] Vitamin B12 1000 mcg oral tablet 1,000 microgram = 1 tab, PO, Daily, # 30 tab, 0 Refill(s) Active 02/06/2016 [facility] Saline Flush 0.9% Notes: (Same as: BD Posiflush) Inactive 02/06/2016 [facility] Ativan Notes: (Same as: Ativan) Inactive 02/06/2016 [facility] Ibuprofen 600 MG Oral Tablet [Motrin] Special Instructions: take with food Active 12/28/2014 [facility] Aspirin 81 MG Chewable Tablet 324 mg, Route: CHEW, ONCE, Dosing Weight 81.818, kg, Priority: STAT, Start date: 12/27/14 21:46:00, Stop date: 12/27/14 21:46:00 Inactive 12/28/2014 [facility] naproxen 500 mg oral tablet 50 0 mg = 1 tab, PO, Q12H, Pain, # 20 tab, 0 Refill(s) Active 12/14/2013 [facility] Ketorolac Tromethamine 30 MG/ML Injectable Solution 4 days Inactive 12/14/2013 [facility] Allergies, Adverse Reactions, Alerts Substance Category Reaction Severity Reaction type Status Date Reported Comments Source penicillins Assertion Drug allergy Active [facility] Immunizations No Data Provided for This Section Results Order Name Results Value Reference Range Date Interpretation Comments Source CARDIAC ENZYMES Troponin-I <0.02 0.00 - 0.40 09/26/2019 [facility] CHEM PANEL Glucose Lvl 101 70 - 99 09/26/2019 [facility] CHEM PANEL BUN 14 7 - 22 09/26/2019 [facility] CHEM PANEL Creatinine Lvl 0.94 0.50 - 1.40 09/26/2019 [facility] CHEM PANEL Sodium Lvl 138 135 - 145 09/26/2019 [facility] CHEM PANEL Potassium Lvl 3.5 3.5 - 5.1 09/26/2019 [facility] CHEM PANEL Chloride Lvl 104 95 - 109 09/26/2019 [facility] CHEM PANEL CO2 26 24 - 32 09/26/2019 [facility] CHEM PANEL Calcium Lvl 9.1 8.5 - 10.5 09/26/2019 [facility] CHEM PANEL AGAP 11.5 10.0 - 20.0 09/26/2019 [facility] CHEM PANEL eGFR 102 09/26/2019 Result Comment: The eGFR is calculated using the CKD-EPI formula. In most young, healthy individuals the eGFR will be >90 mL/min/1.73m2. The eGFR declines with age. An eGFR of 60-89 may be normal in some populations, particularly the elderly, for whom the CKD-EPI formula has not been extensively validated. Use of the eGFR is not recommended in the following populations:

Individuals with unstable creatinine concentrations, including patients and those with serious co-morbid conditions.

Patients with extremes in muscle mass or diet.

The data above are obtained from the National Kidney Disease Education Program (NKDEP) which additionally recommends that when the eGFR is used in patients with extremes of body mass index for purposes of drug dosing, the eGFR should be multiplied by the estimated BMI. [facility] WBC 6.9 3.7 - 10.4 09/26/2019 [facility] RBC 5.38 4.70 - 6.10 09/26/2019 [facility] Hgb 16.6 14.0 - 18.0 09/26/2019 [facility] Hct 49.3 42.0 - 54.0 09/26/2019 [facility] MCV 91.6 80.0 - 94.0 09/26/2019 [facility] MCH 30.9 27.0 - 31.0 09/26/2019 [facility] MCHC 33.8 32.0 - 36.0 09/26/2019 [facility] RDW 13.3 11.5 - 14.5 09/26/2019 [facility] Platelet 308 133 - 450 09/26/2019 [facility] MPV 8.0 7.4 - 10.4 09/26/2019 [facility] Segs 80.5 45.0 - 75.0 09/26/2019 [facility] Lymphocytes 13.1 20.0 - 40.0 09/26/2019 [facility] Monocytes 4.5 2.0 - 12.0 09/26/2019 [facility] Eosinophils 1.9 0.0 - 4.0 09/26/2019 [facility] Neutrophils # 5.6 1.5 - 8.1 09/26/2019 [facility] HEMATOLOGY Lymphocytes # 0.9 1.0 - 5.5 09/26/2019 [facility] HEMATOLOGY Monocytes # 0.3 0.0 - 0.8 09/26/2019 [facility] HEMATOLOGY Eosinophils # 0.1 0.0 - 0.5 09/26/2019 [facility] CARDIAC ENZYMES Troponin-I <0.02 0.00 - 0.40 02/11/2018 [facility] CARDIAC ENZYMES BNP 3 <=100 pg/mL 02/10/2018 [facility] CARDIAC ENZYMES Troponin-I <0.02 0.00 - 0.40 02/10/2018 [facility] CARDIAC ENZYMES Total CK 100 12 - 191 02/10/2018 [facility] CHEM PANEL Lipase Lvl 112 73 - 393 02/10/2018 [facility] ELECTROLYTES AGAP 11.4 10.0 - 20.0 02/10/2018 [facility] ELECTROLYTES B/C Ratio 15 6 - 25 02/10/2018 [facility] ELECTROLYTES Globulin 4.0 2.7 - 4.2 02/10/2018 [facility] ELECTROLYTES A/G Ratio 1.0 0.7 - 1.6 02/10/2018 [facility] ELECTROLYTES eGFR 101 02/10/2018 Result Comment: The eGFR is calculated using the CKD-EPI formula. In most young, healthy individuals the eGFR will be >90 mL/min/1.73m2. The eGFR declines with age. An eGFR of 60-89 may be normal in some populations, particularly the elderly, for whom the CKD-EPI formula has not been extensively validated. Use of the eGFR is not recommended in the following populations:

Individuals with unstable creatinine concentrations, including patients and those with serious co-morbid conditions.

Patients with extremes in muscle mass or diet.

The data above are obtained from the National Kidney Disease Education Program (NKDEP) which additionally recommends that when the eGFR is used in patients with extremes of body mass index for purposes of drug dosing, the eGFR should be multiplied by the estimated BMI. [facility] ELECTROLYTES Calcium Lvl 8.8 8.5 - 10.5 02/10/2018 [facility] ELECTROLYTES ALT 41 0 - 65 02/10/2018 [facility] ELECTROLYTES AST 24 0 - 37 02/10/2018 [facility] ELECTROLYTES Total Protein 8.2 6.4 - 8.4 02/10/2018 [facility] ELECTROLYTES Albumin Lvl 4.2 3.5 - 5.0 02/10/2018 [facility] ELECTROLYTES Potassium Lvl 3.4 3.5 - 5.1 02/10/2018 [facility] ELECTROLYTES Chloride Lvl 105 95 - 109 02/10/2018 [facility] ELECTROLYTES Sodium Lvl 141 135 - 145 02/10/2018 [facility] ELECTROLYTES Bili Total 0.2 0.2 - 1.3 02/10/2018 [facility] ELECTROLYTES Alk Phos 114 39 - 136 02/10/2018 [facility] ELECTROLYTES CO2 28 24 - 32 02/10/2018 [facility] ELECTROLYTES Creatinine Lvl 0.9 5 0.50 - 1.40 02/10/2018 [facility] ELECTROLYTES Glucose Lvl 108 70 - 99 02/10/2018 [facility] ELECTROLYTES BUN 14 7 - 22 02/10/2018 [facility] HEMATOLOGY D-Dimer 0.32 02/10/2018 [facility] HEMATOLOGY WBC 10.7 3.7 - 10.4 02/10/2018 [facility] HEMATOLOGY RBC 5.38 4.70 - 6.10 02/10/2018 [facility] HEMATOLOGY MCV 92.1 80.0 - 94.0 02/10/2018 [facility] HEMATOLOGY Hct 49.6 42.0 - 54.0 02/10/2018 [facility] HEMATOLOGY Hgb 16.9 14.0 - 18.0 02/10/2018 [facility] MCH 31.4 27.0 - 31.0 02/10/2018 [facility] MPV 7.7 7.4 - 10.4 02/10/2018 [facility] HEMATOLOGY Platelet 365 133 - 450 02/10/2018 [facility] RDW 13.9 11.5 - 14.5 02/10/2018 [facility] MCHC 34.1 32.0 - 36.0 02/10/2018 [facility] HEMATOLOGY Eosinophils # 0.1 0.0 - 0.5 02/10/2018 [facility] HEMATOLOGY Neutrophils # 7.1 1.5 - 8.1 02/10/2018 [facility] HEMATOLOGY Lymphocytes # 2.9 1.0 - 5.5 02/10/2018 [facility] HEMATOLOGY Monocytes # 0.6 0.0 - 0.8 02/10/2018 [facility] HEMATOLOGY Segs 66.0 45.0 - 75.0 02/10/2018 [facility] HEMATOLOGY Lymphocytes 26.9 20.0 - 40.0 02/10/2018 [facility] HEMATOLOGY Basophils 0.3 0.0 - 1.0 02/10/2018 [facility] HEMATOLOGY Monocytes 5.8 2.0 - 12.0 02/10/2018 [facility] HEMATOLOGY Eosinophils 1.0 0.0 - 4.0 02/10/2018 [facility] CARDIAC ENZYMES Total CK 76 12 - 191 02/06/2016 [facility] CARDIAC ENZYMES CK MB 0.7 0.5 - 3.6 02/06/2016 [facility] CARDIAC ENZYMES Troponin-I <0.02 0.00 - 0.40 02/06/2016 [facility] CARDIAC ENZYMES CK MB Index 0.9 0.0 - 2.5 02/06/2016 [facility] CHEM PANEL eGFR 98 02/06/2016 Result Comment: The eGFR is calculated using the CKD-EPI formula. In most young, healthy individuals the eGFR will be >90 mL/min/1.73m2. The eGFR declines with age. An eGFR of 60-89 may be normal in some populations, particularly the elderly, for whom the CKD-EPI formula has not been extensively validated. Use of the eGFR is not recommended in the following populations:

Individuals with unstable creatinine concentrations, including patients and those with serious co-morbid conditions.

Patients with extremes in muscle mass or diet.

The data above are obtained from the National Kidney Disease Education Program (NKDEP) which additionally recommends that when the eGFR is used in patients with extremes of body mass index for purposes of drug dosing, the eGFR should be multiplied by the estimated BMI. [facility] CHEM PANEL AST 16 0 - 37 02/06/2016 [facility] CHEM PANEL Alk Phos 93 39 - 136 02/06/2016 [facility] CHEM PANEL ALT 27 0 - 65 02/06/2016 [facility] CHEM PANEL CO2 30 24 - 32 02/06/2016 [facility] CHEM PANEL Potassium Lvl 3.8 3.5 - 5.1 02/06/2016 [facility] CHEM PANEL Chloride Lvl 103 95 - 109 02/06/2016 [facility] CHEM PANEL Bili Total 0.6 0.2 - 1.3 02/06/2016 [facility] CHEM PANEL AGAP 9.8 10.0 - 20.0 02/06/2016 [facility] CHEM PANEL B/C Ratio 19 6 - 25 02/06/2016 [facility] CHEM PANEL Calcium Lvl 8.5 8.5 - 10.5 02/06/2016 [facility] CHEM PANEL Total Protein 7.4 6.4 - 8.4 02/06/2016 [facility] CHEM PANEL Albumin Lvl 3.8 3.5 - 5.0 02/06/2016 [facility] CHEM PANEL Globulin 3.6 2.7 - 4.2 02/06/2016 [facility] CHEM PANEL A/G Ratio 1.1 0.7 - 1.6 02/06/2016 [facility] CHEM PANEL Creatinine Lvl 0.99 0.50 - 1.40 02/06/2016 [facility] CHEM PANEL Sodium Lvl 139 135 - 145 02/06/2016 [facility] CHEM PANEL Glucose Lvl 103 70 - 99 02/06/2016 [facility] CHEM PANEL BUN 19 7 - 22 02/06/2016 [facility] HEMATOLOGY Segs 62.9 45.0 - 75.0 02/06/2016 [facility] HEMATOLOGY Monocytes 6.0 2.0 - 12.0 02/06/2016 [facility] HEMATOLOGY Basophils 0.8 0.0 - 1.0 02/06/2016 [facility] HEMATOLOGY Eosinophils 4.2 0.0 - 4.0 02/06/2016 [facility] HEMATOLOGY Eosinophils # 0.2 0.0 - 0.5 02/06/2016 [facility] HEMATOLOGY Lymphocytes 26.1 20.0 - 40.0 02/06/2016 [facility] HEMATOLOGY Segs-Bands # 3.3 1.5 - 8.1 02/06/2016 [facility] HEMATOLOGY Monocytes # 0.3 0.0 - 0.8 02/06/2016 [facility] HEMATOLOGY Lymphocytes # 1.4 1.0 - 5.5 02/06/2016 [facility] HEMATOLOGY PTT 31.3 22.9 - 35.8 02/06/2016 [facility] HEMATOLOGY MCV 89.3 80.0 - 94.0 02/06/2016 [facility] HEMATOLOGY Hct 45.7 42.0 - 54.0 02/06/2016 [facility] HEMATOLOGY MCH 30.0 27.0 - 31.0 02/06/2016 [facility] HEMATOLOGY WBC 5.2 3.7 - 10.4 02/06/2016 [facility] HEMATOLOGY Hgb 15.4 14.0 - 18.0 02/06/2016 [facility] HEMATOLOGY RBC 5.12 4.70 - 6.10 02/06/2016 [facility] HEMATOLOGY MPV 8.1 7.4 - 10.4 02/06/2016 [facility] HEMATOLOGY RDW 13.4 11.5 - 14.5 02/06/2016 [facility] HEMATOLOGY Platelet 260 133 - 450 02/06/2016 [facility] HEMATOLOGY MCHC 33.6 32.0 - 36.0 02/06/2016 [facility] HEMATOLOGY PT 13.6 12.0 - 14.7 02/06/2016 [facility] HEMATOLOGY INR 1.01 0.85 - 1.17 02/06/2016 [facility] URINE AND STOOL UA Bili Negative *NA* (02/06/16 8:58 AM) Negative 02/06/2016 [facility] URINE AND STOOL UA Turbidity Clear (02/06/16 8:58 AM) Clear 02/06/2016 [facility] URINE AND STOOL UA Glucose Negative mg/dL Negative mg/dL 02/06/2016 [facility] URINE AND STOOL UA Ketones Negative mg/dL Negative mg/dL 02/06/2016 [facility] URINE AND STOOL UA Blood Small *ABN* (02/06/16 8:58 AM) Negative 02/06/2016 [facility] URINE AND STOOL UA pH 7.0 5.0 - 8.0 02/06/2016 [facility] URINE AND STOOL UA Protein Negative mg/dL Negative mg/dL 02/06/2016 [facility] URINE AND STOOL UA Spec Grav 1.010 <=1.030 02/06/2016 [facility] URINE AND STOOL UA Color Ltyellow 02/06/2016 [facility] URINE AND STOOL UA Urobilinogen <=1.0 mg/dL 0.1 - 1.0 02/06/2016 [facility] URINE AND STOOL UA WBC <1 0 - 5 02/06/2016 [facility] URINE AND STOOL UA Nitrite Negative (02/06/16 8:58 AM) Negative 02/06/2016 [facility] URINE AND STOOL UA Leuk Est Negative (02/06/16 8:58 AM) Negative 02/06/2016 [facility] URINE AND STOOL UA RBC 2 0 - 2 02/06/2016 [facility] URINE AND STOOL UA Sq Epi None Seen 02/06/2016 [facility] CARDIAC ENZYMES Troponin-I <0.02 0.00 - 0.40 12/28/2014 [facility] CARDIAC ENZYMES CK MB 0.7 0.5 - 3.6 12/28/2014 [facility] CHEM PANEL B/C Ratio 20 6 - 25 12/28/2014 [facility] CHEM PANEL AGAP 9.5 10.0 - 20.0 12/28/2014 [facility] CHEM PANEL Globulin 3.8 2.0 - 4.0 12/28/2014 [facility] CHEM PANEL A/G Ratio 1.1 0.7 - 1.6 12/28/2014 [facility] CHEM PANEL Calcium Lvl 8.8 8.5 - 10.5 12/28/2014 [facility] CHEM PANEL eGFR 78 12/28/2014 Result Comment: The eGFR is calculated using the CKD-EPI formula. In most young, healthy individuals the eGFR will be >90 mL/min/1.73m2. The eGFR declines with age. An eGFR of 60-89 may be normal in some populations, particularly the elderly, for whom the CKD-EPI formula has not been extensively validated. Use of the eGFR is not recommended in the following populations:

Individuals with unstable creatinine concentrations, including patients and those with serious co-morbid conditions.

Patients with extremes in muscle mass or diet.

The data above are obtained from the National Kidney Disease Education Program (NKDEP) which additionally recommends that when the eGFR is used in patients with extremes of body mass index for purposes of drug dosing, the eGFR should be multiplied by the estimated BMI. [facility] CHEM PANEL Chloride Lvl 101 95 - 109 12/28/2014 [facility] CHEM PANEL Potassium Lvl 3.5 3.5 - 5.1 12/28/2014 [facility] CHEM PANEL Creatinine Lvl 1.2 0.5 - 1.4 12/28/2014 [facility] CHEM PANEL Sodium Lvl 137 135 - 145 12/28/2014 [facility] CHEM PANEL Bili Total 0.6 0.2 - 1.3 12/28/2014 [facility] CHEM PANEL Glucose Lvl 130 70 - 99 12/28/2014 [facility] CHEM PANEL CO2 30 24 - 32 12/28/2014 [facility] CHEM PANEL BUN 24 7 - 22 12/28/2014 [facility] CHEM PANEL Alk Phos 118 39 - 136 12/28/2014 [facility] CHEM PANEL AST 18 0 - 37 12/28/2014 [facility] CHEM PANEL Albumin Lvl 4.3 3.5 - 5.0 12/28/2014 [facility] CHEM PANEL Total Protein 8.1 6.4 - 8.4 12/28/2014 [facility] CHEM PANEL ALT 31 0 - 65 12/28/2014 [facility] HEMATOLOGY Eosinophils # 0.4 0.0 - 0.5 12/28/2014 [facility] HEMATOLOGY Monocytes # 0.5 0.0 - 0.8 12/28/2014 [facility] HEMATOLOGY Segs-Bands # 5.5 1.5 - 8.1 12/28/2014 [facility] HEMATOLOGY Lymphocytes # 2.9 1.0 - 5.5 12/28/2014 [facility] HEMATOLOGY Basophils # 0.1 0.0 - 0.2 12/28/2014 [facility] HEMATOLOGY Monocytes 5.1 2.0 - 12.0 12/28/2014 [facility] HEMATOLOGY Eosinophils 3.8 0.0 - 4.0 12/28/2014 [facility] HEMATOLOGY Basophils 0.7 0.0 - 1.0 12/28/2014 [facility] Lymphocytes 30.9 20.0 - 40.0 12/28/2014 [facility] HEMATOLOGY Segs 59.5 45.0 - 75.0 12/28/2014 [facility] WBC 9.2 3.7 - 10.4 12/28/2014 [facility] RBC 5.37 4.70 - 6.10 12/28/2014 [facility] MPV 8.4 7.4 - 10.4 12/28/2014 [facility] Platelet 305 133 - 450 12/28/2014 [facility] MCV 91.4 80.0 - 94.0 12/28/2014 [facility] Hct 49.1 42.0 - 54.0 12/28/2014 [facility] MCH 30.7 27.0 - 31.0 12/28/2014 [facility] MCHC 33.5 32.0 - 36.0 12/28/2014 [facility] Hgb 16.5 14.0 - 18.0 12/28/2014 [facility] RDW 14.2 11.5 - 14.5 12/28/2014 [facility] URINE AND STOOL UA Color Ltyellow 01/26/2014 [facility] URINE AND STOOL UA Urobilinogen <=1.0 mg/dL 0.1 - 1.0 01/26/2014 [facility] URINE AND STOOL UA Sq Epi None Seen 01/26/2014 [facility] URINE AND STOOL UA Leuk Est Negative (01/26/14 6:00 AM) Negative 01/26/2014 [facility] URINE AND STOOL UA RBC 1 0 - 2 01/26/2014 [facility] URINE AND STOOL UA Spec Grav 1.012 <=1.030 01/26/2014 [facility] URINE AND STOOL UA Protein Negative mg/dL Negative mg/dL 01/26/2014 [facility] URINE AND STOOL UA pH 6.0 5.0 - 8.0 01/26/2014 [facility] URINE AND STOOL UA Blood Negative (01/26/14 6:00 AM) Negative 01/26/2014 [facility] URINE AND STOOL UA Ketones Negative mg/dL Negative mg/dL 01/26/2014 [facility] URINE AND STOOL UA Glucose Negative mg/dL Negative mg/dL 01/26/2014 [facility] URINE AND STOOL UA Bili Negative *NA* (01/26/14 6:00 AM) Negative 01/26/2014 [facility] URINE AND STOOL UA Nitrite Negative (01/26/14 6:00 AM) Negative 01/26/2014 [facility] URINE AND STOOL UA Turbidity Clear (01/26/14 6:00 AM) Clear 01/26/2014 [facility] CARDIAC ENZYMES Troponin-I <0.02 0.00 - 0.40 01/26/2014 [facility] CARDIAC ENZYMES CK MB 1.3 0.5 - 3.6 01/26/2014 [facility] CARDIAC ENZYMES Total CK 93 12 - 191 01/26/2014 [facility] CARDIAC ENZYMES CK MB Index 1.4 0.0 - 2.5 01/26/2014 [facility] CHEM PANEL Lipase Lvl 90 73 - 393 01/26/2014 [facility] CHEM PANEL Amylase Lvl 99 25 - 115 01/26/2014 [facility] CHEM PANEL eGFR 111 01/26/2014 <sup>1</sup>Result Comment: The eGFR is calculated using the CKD-EPI formula. In most young, healthy individuals the eGFR will be >90 mL/min/1.73m2. The eGFR declines with age. An eGFR of 60-89 may be normal in some populations, particularly the elderly, for whom the CKD-EPI formula has not been extensively validated. Use of the eGFR is not recommended in the following populations:& lt;br/>
Individuals with unstable creatinine concentrations, including patients and those with serious co-morbid conditions.

Patients with extremes in muscle mass or diet.

The data above are obtained from the National Kidney Disease Education Program (NKDEP) which additionally recommends that when the eGFR is used in patients with extremes of body mass index for purposes of drug dosing, the eGFR should be multiplied by the estimated BMI. [facility] CHEM PANEL B/C Ratio 16 6 - 25 01/26/2014 [facility] CHEM PANEL Globulin 3.8 2.0 - 4.0 01/26/2014 [facility] CHEM PANEL A/G Ratio 0.9 0.7 - 1.6 01/26/2014 [facility] CHEM PANEL ALT 30 0 - 65 01/26/2014 [facility] CHEM PANEL Alk Phos 100 39 - 136 01/26/2014 [facility] CHEM PANEL AST 14 0 - 37 01/26/2014 [facility] CHEM PANEL Bili Total 0.4 0.2 - 1.3 01/26/2014 [facility] CHEM PANEL AGAP 14.8 10.0 - 20.0 01/26/2014 [facility] CHEM PANEL BUN 14 7 - 22 01/26/2014 [facility] CHEM PANEL Glucose Lvl 109 70 - 99 01/26/2014 <sup>2</sup>Interpretive Data: Adult ref erence range values reflect the clinical guidelines
of the [employer]. [facility] CHEM PANEL Sodium Lvl 139 135 - 145 01/26/2014 [facility] CHEM PANEL Creatinine Lvl 0.9 0.5 - 1.4 01/26/2014 [facility] CHEM PANEL Potassium Lvl 3.8 3.5 - 5.1 01/26/2014 [facility] CHEM PANEL Chloride Lvl 104 95 - 109 01/26/2014 [facility] CHEM PANEL CO2 24 24 - 32 01/26/2014 [facility] CHEM PANEL Calcium Lvl 8.9 8.5 - 10.5 01/26/2014 [facility] CHEM PANEL Albumin Lvl 3.6 3.5 - 5.0 01/26/2014 [facility] CHEM PANEL Total Protein 7.4 6.4 - 8.4 01/26/2014 [facility] HEMATOLOGY Eosinophils # 0.3 0.0 - 0.5 01/26/2014 [facility] HEMATOLOGY Monocytes # 0.3 0.0 - 0.8 01/26/2014 [facility] HEMATOLOGY Lymphocytes # 1.8 1.0 - 5.5 01/26/2014 [facility] HEMATOLOGY Segs-Bands # 3.4 1.5 - 8.1 01/26/2014 [facility] HEMATOLOGY Basophils 0.8 0.0 - 1.0 01/26/2014 [facility] HEMATOLOGY Eosinophils 5.3 0.0 - 4.0 01/26/2014 [facility] HEMATOLOGY Monocytes 5.8 2.0 - 12.0 01/26/2014 [facility] Lymphocytes 30.6 20.0 - 40.0 01/26/2014 [facility] Segs 57.5 45.0 - 75.0 01/26/2014 [facility] Platelet 304 133 - 450 01/26/2014 [facility] MPV 7.8 7.4 - 10.4 01/26/2014 [facility] MCH 30.5 27.0 - 31.0 01/26/2014 [facility] MCV 90.5 80.0 - 94.0 01/26/2014 [facility] RDW 13.3 11.5 - 14.5 01/26/2014 [facility] MCHC 33.7 32.0 - 36.0 01/26/2014 [facility] RBC 4.76 4.70 - 6.10 01/26/2014 [facility] Hct 43.1 42.0 - 54.0 01/26/2014 [facility] Hgb 14.5 14.0 - 18.0 01/26/2014 [facility] WBC 5.9 3.7 - 10.4 01/26/2014 [facility] HIV 4th GEN Negat akash (01/26/14 6:00 AM) Negative 01/26/2014 [facility] CARDIAC ENZYMES Troponin-I <0.02 0.00 - 0.40 12/14/2013 [facility] HIV 4th GEN Negat akash (12/14/13 12:05 PM) Negative 12/14/2013 [facility] CARDIAC ENZYMES Troponin-I <0.02 0.00 - 0.40 12/14/2013 [facility] CARDIAC ENZYMES CK MB <0.5 0.5 - 3.6 12/14/2013 [facility] CARDIAC ENZYMES Total CK 91 12 - 191 12/14/2013 [facility] CARDIAC ENZYMES CK MB Index <0.5 0.0 - 2.5 12/14/2013 [facility] CHEM PANEL eGFR 98 12/14/2013 <sup>1</sup>Result Comment: The eGFR is calculated using the CKD-EPI formula. In most young, healthy individuals the eGFR will be >90 mL/min/1.73m2. The eGFR declines with age. An eGFR of 60-89 may be normal in some populations, particularly the elderly, for whom the CKD-EPI formula has not been extensively validated. Use of the eGFR is not recommended in the following populations:& lt;br/>
Individuals with unstable creatinine concentrations, including patients and those with serious co-morbid conditions.

Patients with extremes in muscle mass or diet.

The data above are obtained from the National Kidney Disease Education Program (NKDEP) which additionally recommends that when the eGFR is used in patients with extremes of body mass index for purposes of drug dosing, the eGFR should be multiplied by the estimated BMI. [facility] CHEM PANEL Globulin 3.8 2.0 - 4.0 12/14/2013 [facility] CHEM PANEL B/C Ratio 19 6 - 25 12/14/2013 [facility] CHEM PANEL Bili Total 0.4 0.2 - 1.3 12/14/2013 [facility] CHEM PANEL AGAP 11.1 10.0 - 20.0 12/14/2013 [facility] CHEM PANEL A/G Ratio 1.1 0.7 - 1.6 12/14/2013 [facility] CHEM PANEL AST 21 0 - 37 12/14/2013 [facility] CHEM PANEL Alk Phos 129 39 - 136 12/14/2013 [facility] CHEM PANEL Sodium Lvl 137 135 - 145 12/14/2013 [facility] CHEM PANEL Glucose Lvl 102 70 - 99 12/14/2013 <sup>2</sup>Interpretive Data: Adult ref erence range values reflect the clinical guidelines
of the [place] [employer]. [facility] CHEM PANEL BUN 19 7 - 22 12/14/2013 [facility] CHEM PANEL Albumin Lvl 4.2 3.5 - 5.0 12/14/2013 [facility] CHEM PANEL ALT 38 0 - 65 12/14/2013 [facility] CHEM PANEL Calcium Lvl 9.0 8.5 - 10.5 12/14/2013 [facility] CHEM PANEL Total Protein 8.0 6.4 - 8.4 12/14/2013 [facility] CHEM PANEL Potassium Lvl 4.1 3.5 - 5.1 12/14/2013 [facility] CHEM PANEL Chloride Lvl 101 95 - 109 12/14/2013 [facility] CHEM PANEL Creatinine Lvl 1.0 0.5 - 1.4 12/14/2013 [facility] CHEM PANEL CO2 29 24 - 32 12/14/2013 [facility] HEMATOLOGY PTT 30.9 22.9 - 35.8 12/14/2013 <sup>4</sup>Interpretive Data: Heparin T herapeutic Range: 57 - 92 Seconds [facility] INR 0.92 0.85 - 1.17 12/14/2013 <sup>3</sup>Interpretive Data: RECOMMEND ED RANGES FOR PROTIME INR:
2.0-3.0 for most medical and surgical thromboembolic states.
2.5-3.5 for artificial heart valves and recurrent embolism.

INR SHOULD BE USED ONLY FOR PATIENTS ON STABLE ANTICOAGULANT THERAPY. [facility] HEMATOLOGY PT 12.3 12.0 - 14.7 12/14/2013 [facility] Platelet 315 133 - 450 12/14/2013 [facility] MCH 30.3 27.0 - 31.0 12/14/2013 [facility] RDW 13.4 11.5 - 14.5 12/14/2013 [facility] MCHC 33.9 32.0 - 36.0 12/14/2013 [facility] MPV 7.7 7.4 - 10.4 12/14/2013 [facility] RBC 4.96 4.70 - 6.10 12/14/2013 [facility] WBC 6.8 3.7 - 10.4 12/14/2013 [facility] MCV 89.2 80.0 - 94.0 12/14/2013 [facility] Hct 44.3 42.0 - 54.0 12/14/2013 [facility] Hgb 15.0 14.0 - 18.0 12/14/2013 [facility] Monocytes # 0.4 0.0 - 0.8 12/14/2013 [facility] Segs 61.4 45.0 - 75.0 12/14/2013 [facility] Monocytes 5.3 2.0 - 12.0 12/14/2013 [facility] Lymphocytes 26.0 20.0 - 40.0 12/14/2013 [facility] Eosinophils # 0.4 0.0 - 0.5 12/14/2013 [facility] Basophils # 0.1 0.0 - 0.2 12/14/2013 [facility] Lymphocytes # 1.8 1.0 - 5.5 12/14/2013 [facility] Segs-Bands # 4.2 1.5 - 8.1 12/14/2013 [facility] Basophils 1.4 0.0 - 1.0 12/14/2013 [facility] HEMATOLOGY Eosinophils 5.9 0.0 - 4.0 12/14/2013 [facility] Pathology Reports No Data Provided for This Section Diagnostic Reports Report Value Date Source Chest 1view DX PROCEDURE INFOR MATION: Exam: XR Chest, 1 View Exam date and time: 09/26/2019 11:44 AM Age: 39 years old Clinical indication: Chest pain; Additional info: /chest pain TECHNIQUE: Imaging protocol: XR of the chest Views: 1 view. COMPARISON: 1. CHEST 1VIEW DX 02/10/2018 4:56 PM 2. CHEST 1VIEW DX 02/06/2016 8:49 AM FINDINGS: Lungs: The lungs are clear. Pleural space: No pleural abnormality. Heart/Mediastinum: The heart and vascular markings are within limits of normal. Bones/joints: No significant skeletal abnormality. IMPRESSION: No evidence of an active cardiopulmonary process. Kike Holt MD On 09/26/2019 12:23:20; [id number] 09/26/2019 [facility] Chest 1view DX PROCEDURE: Ches t, AP on 02/10/2018 at 1656 hours. INDICATION: Chest pain. COMPARISON: Chest radiographs dated 02/06/2016 and 12/27/2014 FINDINGS: There are no visualized pleural effusions. The visualized portions of the lungs are clear with normal pulmonary vasculature. The mediastinal silhouette and rciardo appear normal. No evidence for an acute bony abnormality. IMPRESSION: 1. No evidence for an acute cardiopulmon brady process. SL: ADEEL 02/10/2018 [facility] Brain wo contrast CT Patient N kevin: VALENTE MORA : 1980; Age: 36 years Male MR: [id number] Study: Brain wo contrast CT 02/06/2016 8:46 AM CDT Clinical Indication: Headache with Trauma. Patient c/o chest pain and left sided facial numbness since 5 am. COMPARISON: None TECHNIQUE: CT images were obtained from the foramen magnum to the vertex without the use of intravenous contrast on a multidetector CT. Coronal and sagittal reconstructions were obtained. FINDINGS: BRAIN PARENCHYMA: There are normal peralta-white interfaces, sulci and gyri. There is no mass effect or midline shift. There is no extra-axial fluid collection, intraventricular or intraparenchymal hemorrhage. The sella and pineal regions are normal. The skull base, cerebellum and brainstem are normal. VENTRICLES: The ventricles are normal in size and configuration. The basilar cisterns are normal. ORBITS, MASTOIDS AND PARANASAL SINUSES: The visualized orbits are normal. The paranasal sinuses are normal. The mastoid air cells are clear. SKULL: There are no osseous abnormalities. If there is further concern for intracranial pathology or acute stroke, MRI of the brain may be performed for complete assessment. IMPRESSION: Normal noncontrast head CT. No mass, hemorrhage or subacute stroke. SL: [id number] 02/06/2016 [facility] Chest 1view DX Patient Name: Devika MORA : 1980; Age: 36 years y/o Male MR: [id number] * CHEST, portable, 1 view HISTORY: Coughing, left chest pain; COMPARISON: 12/27/2014. A study of 07/24/2013 and a chest computed tomography scan of 05/08/2008 were reviewed. TECHNIQUE: A portable frontal radiograph of the chest was obtained. FINDINGS: There is no evidence of an active or acute process within the chest. There is mild chronic elevation of the right hemidiaphragm. The lungs are clear. There are no pleural effusions. The heart is normal in size. The regional skeleton is unremarkable. IMPRESSION: 1. No active disease. SL: [id number] 02/06/2016 [facility] Chest 2 views DX CHEST RADIOGR [facility] 2 VIEWS INDICATION: Chest pain COMPARISON: Chest radiograph 05/24/2014 FINDINGS: There is no consolidation, pleural effusion, or pneumothorax. No suspicious pulmonary nodules are identified. The cardiomediastinal silhouette and pulmonary vasculature are within normal limits. No acute bony abnormalities are seen. IMPRESSION: No acute intrathoracic abnormalities are visualized. SL: 16 12/27/2014 [facility] Consultation Notes No Data Provided for This Section Discharge Summaries No Data Provided for This Section History and Physicals No Data Provided for This Section Vital Signs Vital Sign Value Date Comments Source Systolic (mm Hg) 123 09/26/2019 [facility] Diastolic (mm Hg) 80 09/26/2019 [facility] Heart Rate 78 09/26/2019 [facility] Temperature Oral (F) 98.0 F 09/26/2019 [facility] Respitory Rate 17 09/26/2019 [facility] BMI Calculated 37.2 09/26/2019 [facility] Height 167.64 cm 09/26/2019 [facility] BMI Calculated 37.2 09/26/2019 [facility] Weight 104.545 09/26/2019 [facility] Systolic (mm Hg) 137 09/26/2019 [facility] Diastolic (mm Hg) 84 09/26/2019 [facility] Heart Rate 80 09/26/2019 [facility] Respitory Rate 18 09/26/2019 [facility] Temperature Oral (F) 98.6 F 09/26/2019 [facility] Respitory Rate 16 02/11/2018 [facility] Temperature Oral (F) 98.5 F 02/11/2018 [facility] Systolic (mm Hg) 120 02/11/2018 [facility] Diastolic (mm Hg) 85 02/11/2018 [facility] Respitory Rate 14 02/11/2018 [facility] Systolic (mm Hg) 116 02/11/2018 [facility] Diastolic (mm Hg) 75 02/11/2018 [facility] Respitory Rate 25 02/11/2018 [facility] Heart Rate 86 02/10/2018 [facility] Heart Rate 113 02/10/2018 [facility] Diastolic (mm Hg) 69 02/10/2018 [facility] Systolic (mm Hg) 109 02/10/2018 [facility] Temperature Oral (F) 98.1 F 02/10/2018 [facility] Heart Rate 132 02/10/2018 [facility] Height 172.72 cm 02/10/2018 [facility] BMI Calculated 33.83 02/10/2018 [facility] Weight 100.909 02/10/2018 [facility] Respitory Rate 23 02/06/2016 [facility] Systolic (mm Hg) 147 02/06/2016 [facility] Diastolic (mm Hg) 94 02/06/2016 [facility] Respitory Rate 20 02/06/2016 [facility] Systolic (mm Hg) 131 02/06/2016 [facility] Diastolic (mm Hg) 65 02/06/2016 [facility] Respitory Rate 16 02/06/2016 [facility] Heart Rate 64 02/06/2016 [facility] Systolic (mm Hg) 124 02/06/2016 [facility] Diastolic (mm Hg) 69 02/06/2016 [facility] Heart Rate 82 02/06/2016 [facility] Height 170.18 cm 02/06/2016 [facility] Weight 105.909 02/06/2016 [facility] BMI Calculated 36.57 02/06/2016 [facility] Temperature Oral (F) 98.3 F 02/06/2016 [facility] Heart Rate 65 02/06/2016 [facility] Systolic (mm Hg) 118 12/28/2014 [facility] Diastolic (mm Hg) 80 12/28/2014 [facility] Respitory Rate 18 12/28/2014 [facility] Heart Rate 76 12/28/2014 [facility] Temperature Oral (F) 97.8 F 12/28/2014 [facility] Respitory Rate 18 12/27/2014 [facility] Weight 81.818 12/27/2014 [facility] Temperature Oral (F) 97.9 F 12/27/2014 [facility] Systolic (mm Hg) 118 12/27/2014 [facility] Diastolic (mm Hg) 80 12/27/2014 [facility] Heart Rate 74 12/27/2014 [facility] Diastolic (mm Hg) 80 01/26/2014 [facility] Systolic (mm Hg) 110 01/26/2014 [facility] Respitory Rate 16 01/26/2014 [facility] Temperature Oral (F) 98.0 F 01/26/2014 [facility] Heart Rate 66 01/26/2014 [facility] BMI Calculated 35.58 01/26/2014 [facility] Height 167.64 cm 01/26/2014 [facility] Weight 100 01/26/2014 [facility] Heart Rate 63 01/26/2014 [facility] Systolic (mm Hg) 108 01/26/2014 [facility] Respitory Rate 18 01/26/2014 [facility] Temperature Oral (F) 97.8 F 01/26/2014 [facility] Diastolic (mm Hg) 76 01/26/2014 [facility] Temperature Oral (F) 98.2 F 12/14/2013 [facility] Respitory Rate 18 12/14/2013 [facility] Systolic (mm Hg) 100 12/14/2013 [facility] Diastolic (mm Hg) 63 12/14/2013 [facility] Systolic (mm Hg) 119 12/14/2013 [facility] Respitory Rate 20 12/14/2013 [facility] Diastolic (mm Hg) 53 12/14/2013 [facility] Systolic (mm Hg) 108 12/14/2013 [facility] Diastolic (mm Hg) 66 12/14/2013 [facility] Respitory Rate 20 12/14/2013 [facility] Height 167.64 cm 12/14/2013 [facility] BMI Calculated 36.55 12/14/2013 [facility] Weight 102.727 12/14/2013 [facility] Temperature Oral (F) 98.0 F 12/14/2013 [facility] Heart Rate 87 12/14/2013 [facility] Encounters Location Location Details Encounter Type Encounter Number Reason For Visit Attending Provider ADM Date DC Date Status Source [facility] [id number] Randee Cardona 12/14/2013 12/14/2013 [facility] [id number] Jerome Mckeon 01/26/2014 01/26/2014 [facility] [id number] Jonathon Wing 12/27/2014 12/28/2014 [facility] [id number] Gregory Borjakemal 02/06/2016 02/06/2016 [facility] [id number] Linda Odroñez 02/11/2002/11/2018 [facility] [id number] Rigo Reji 09/26/2019 09/26/2019 [facility] Procedures Procedure Code Date Perfomer Comments Source Azael repair of inguinal hernia [id number] 06/10/2008 [facility] Assessment and Plan No Data Provided for This Section Plan of Care No Data Provided for This Section Social History Social History Date Source Social History TypeResponse Smoking Status Never smoker; Previous treatment: None; Exposure to Tobacco Smoke None; Cigarette Smoking Last 365 Days No; Reg Smoking Cessation Counseling No entered on: 09/26/19 09/26/2019 [facility] Family History No Data Provided for This Section Advance Directives No Data Provided for This Section Functional Status No Data Provided for This Section
--- OUTSIDE RECORDS SUMMARY | 2020-02-26 10:27 | XMS REPORT | Clinical Summary ---
Author Author [facility] ict Organization [facility] ict Address Unknown Phone Unavailable Care Team Providers Care Account [employer] Name Role Phone PCP Unavailable Allergies Comments [...] Not on file Results Not on fileafter 02/24/2019 Insurance Type Payer Benefit Subscriber ID Effective Phone Address Plan / Dates Group BC/BS BC/BS PPO xxxxxxxxxxxx 2015- [phone] [id number] [place] [address] (Work)
--- OUTSIDE RECORDS SUMMARY | 2020-02-26 10:28 | XMS REPORT | Continuity of Care Document ---
Author Author [facility] t Organization [facility] Address [address] [place] [address] Phone Unavailable Care Team Providers Care Farm Adviser Name Role Phone MD BIN REYNOLDS PCP Aye CROOK Attphys Unavailable Rose Mendzoa Attphys Linda Ordoñez Attphys Oralia MINOR Attphys Unavailable Gregory Landry Attphys Sammie Wing Attphys Patricia Mckeon Attphys Reuben Cardona Attphys Payers Payer Name Policy Type Policy Number Effective Date Expiration Date S [facility] [id number] 2016 00:00:00 [facility] Problems Condition Name Condition Details Condition Category Status Onset Date Resolution Date Last Treatment Date Treating Clinician Comments Source ABNORMAL EKG ABNO RMAL EKG Active 09/26/2019 [facility] Active 2019-09-26 00:00:00 2019-11-26 10:56:00 [facility] CHEST PAIN CHES T PAIN Active 02/10/2018 [facility] Active 2018-02-10 00:00:00 2018-02-10 19:25:00 [facility] R07.9 R07. 9 Active 08/16/2016 [facility] Active 2016-08-16 00:00:00 2016-09-25 15:58:00 [facility] CHEST PAIN/NUMBNESS CHES T PAIN/NUMBNESS Active 02/06/2016 [facility] Active 2016-02-06 00:00:00 2016-02-06 11:20:00 [facility] Musculoskeletal chest pain Musculoskeletal chest pain Disease Active 2015-03-16 00:00:00 [facility] SOB/LEFT HAND NUMBNESS SOB/ LEFT HAND NUMBNESS Active 05/24/2014 [facility] Active 2014-05-24 00:00:00 2014-05-24 11:15:00 [facility] Vomiting Vomiting Disease Active 2014-04-07 00:00:00 Overview: Reported 02/21 by pt as occuring nearly daily for 2 years. Referred to GI, who requested further lab/Xrays. Informed pt of need to return for these. [facility] CHEST PAIN, ARM TINGLING CHES T PAIN, ARM TINGLING Active 01/26/2014 [facility] Active 2014-01-26 00:00:00 2014-01-26 07:00:00 [facility] Fatty liver Fatty liver Disease Active 2014-01-19 00:00:00 [facility] Hyperlipidemia Hyperlipidemia Disease Active 2014-01-19 00:00:00 [facility] Costochondritis Costochondritis Disease Active 2014-01-19 00:00:00 [facility] Abdominal pain Problem Active [facility] Polydipsia Polydipsia Disease Active [facility] [employer] [facility] Polyuria Polyuria Disease Active [facility] Pure hypercholesterolemia, unspecified Pure hypercholesterolemia, unspecified 08/30/2018 [facility] Problem 2018-08-30 11:53:59 [facility] Anxiety disorder, unspecified Anxiety disorder, unspecified 08/30/2018 [facility] Problem 2018-08-30 1 1:53:59 [facility] Type 2 diabetes mellitus without complications Type 2 diabetes mellitus without complications 08/30/2018 [facility] Problem 2018-08-30 11:53:59 [facility] Nausea with vomiting, unspecified Nausea with vomiting, unspecified 08/30/2018 [facility] Problem 2018-08-30 1 1:53:59 [facility] Shortness of breath Shor tness of breath 08/30/2018 [facility] Problem 2018-08-30 11:53:59 [facility] Other manager intermediate (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 Other manager intermediate (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 08/30/2018 [facility] Problem 2018-08-30 11:53:59 [facility] residential (current) use of oral hypoglycemic drugs residential (current) use of oral hypoglycemic drugs 08/30/2018 [facility] Problem 2018-08-30 11:53:59 [facility] 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 residential (current) use of aspirin 08/30/2018 [facility] Problem 2018-08-09 3 11:53:59 [facility] Diabetes mellitus (disorder) D iabetes mellitus (disorder) Resolved Problem 09/28/2019 [facility] Resolved 2019-09-28 21:19:11 [facility] Anxiety (finding) Anxi ety (finding) Active Problem 09/28/2019 [facility] Problem Active 2019-09-28 21:19:11 [facility] Hypercholesterolemia (disorder) Hypercholesterolemia (disorder) Active Problem 09/28/2019 [facility] Problem Active 2019-09-28 21:19:11 [facility] Chest pain, unspecified Ches t pain, unspecified 09/26/2019 09/28/2019 [facility] Problem 2019-09-26 17:00:00 2019 21:19:11 2019-09-28 21:19:11 [facility] Other chest pain Othe r chest pain 02/10/2018 08/30/2018 [facility] Problem 2018-02-10 05:00:00 2018-08-30 11:53:59 2 11:53:59 [facility] Discharge Diagnosis: Paresthesia Discharge Diagnosis: Paresthesia 02/06/2016 02/09/2016 [facility] Problem 23-01-29 05:00:00 2016-02-09 02:13:07 2016-02-09 02:13:07 [facility] Discharge Diagnosis: Acute chest pain Discharge Diagnosis: Acute chest pain 12/27/2014 12/30/2014 [facility] Problem 2014-12-27 05:00:00 2014-12-30 02:59:52 2014-12-30 02:59:52 [facility] [place] Discharge Diagnosis: Peripheral neuropathy Discharge Diagnosis: Peripheral neuropathy 01/26/2014 01/29/2014 [facility] Problem 2014-01-26 05:00:00 2014-01-29 00:42:08 2014-01-29 00:42:08 [facility] Discharge Diagnosis: Chest pain Discharge Diagnosis: Chest pain 12/14/2013 12/17/2013 [facility] Problem 201 09-14-06 05:00:00 2013-12-17 02:22:00 2013-12-17 02:22:00 [facility] Discharge Diagnosis: Costochondritis, acute Discharge Diagnosis: Costochondritis, acute 12/14/2013 12/17/2013 [facility] Problem 2013-12-14 05:00:00 2013-12-17 02:22:00 2013-12-17 02:22:00 [facility] Allergies, Adverse Reactions, Alerts Allergy Name Allergy Type Status Severity Reaction(s) Onset Date Inacti ve Date Treating Clinician Comments Source Penicillins DA Active [place] 2017-12-11 00:00:00 [facility] Penicillin Allergy to substance Active 2017-05-08 00:00:00 [facility] Penicillins Propensity to adverse reactions to drug Active 2014-01-19 00:00:00 [facility] penicillins penicillins Active [facility] Family History Family Member Diagnosis Comments Start Date Stop Date Source Natural brother Cancer [facility] alth Natural father Hypertension [facility] Maternal grandmother [facility] Maternal grandmother Heart [facility] Social History Social Habit Start Date Stop Date Quantity Comments Source Sex Assigned At [facility] Alcohol intake 2015-07-27 00:00:00 2015-07-27 00:00:00 Current non-drinker of alcohol (finding) [facility] Alcohol Comment 2014-05-20 00:00:00 2014-05-20 00:00:00 quit 6 yrs ag o [facility] Smoking Status Start Date Stop Date Source Social History [facility] Medications Ordered Medication Name Filled Medication Name Start Date Stop Da te Current Medication? Ordering Clinician Indication Dosage Frequency Signature (SIG) Comments Components Source Mag Hydrox/Al Hydrox/Simeth (Maalox Maximum Strength S nursing home) 355 Ml ORAL.SUSP Mag Hydrox/Al Hydrox/Simeth (Maalox Maximum Strength Susp) 355 Ml ORAL.SUSP 2020-02-21 22:57:00 Yes [address] [facility] Ibuprofen 800 MG Oral Tablet [Motrin] 2019-09-26 18:09:00 Y es 800 mg = 1 tab, PO, Q8H, PRN Pain, Take with food, X 10 day, # 30 tab, 0 Refill(s) Benigno Gordon Ketorolac 2019-09-26 18:08:00 No 4 days MEDICATION WASTE Product Size: 30 mg Product Wasted: ___ mg Benigno Gordon Clonazepam 2018-02-10 22:48:00 No Notes: (S kevin As: KlonoPIN) Benigno Gordon Phenergan 2018-02-10 22:46:00 No Notes: Do not give IV push. (Same as: Phenergan) Benigno Gordon Saline Flush 0.9% 2018-02-10 21:51:00 No Notes: (Same as: BD Posiflush) Benigno Gordon Sodium Chloride 0.9% (Bolus) IV 2018-02-10 21:51:00 No 1,000 mL, Infuse Over: 1 hr, Route: IV, ONCE, Priority: STAT, Dosing Weight 100.909 kg, Start date: 02/10/18 16:51:00 CDT, Stop date: 02/10/18 16:51:00 CDT Benigno Gordon Aspirin 81 MG Chewable Tablet 2016-02-06 18:20:00 Yes 81 mg = 1 tab, PO, Daily, # 21 tab, 0 Refill(s) Chuck Hinson Aspirin 2016-02-06 17:48:00 No Notes: Take with food. Benigno Gordon clonazePAM 1 mg oral tablet, disintegrating 2016-02-06 14:03:00 Yes 1 mg = 1 tab, PO, TID, 0 Refill(s) Elijah Gordon citalopram 10 mg oral tablet 2016-02-06 14:02:00 Yes 10 mg = 1 tab, PO, Bedtime, # 30 tab, 0 Refill(s) Danetteitezl arita Evan atorvastatin 10 mg oral tablet 2016-02-06 14:01:00 Yes 10 mg = 1 tab, PO, Bedtime, # 30 tab, 0 Refill(s) Benigno Gordon naproxen 500 mg oral enteric coated delayed-release tablet 2016-02-06 14:01:00 Yes 500 mg = 1 tab, PO, BID, PRN Pa in, # 30 tab, 0 Refill(s) [facility] [place] piroxicam 20 mg oral capsule 2016-02-06 14:01:00 Yes 20 mg = 1 cap, PO, Daily, PRN Pain, # 10 cap, 0 Refill(s) [facility] gabapentin 300 MG Oral Capsule 2016-02-06 14:00:00 Yes 300 mg = 1 cap, PO, BID, # 90 cap, 1 Refill(s) Borose izquierdo Evan tizanidine 4 mg oral capsule 2016-02-06 14:00:00 Yes 4 mg = 1 cap, PO, Q8H, 0 Refill(s) Benigno [facility] Metformin hydrochloride 500 MG Oral Tablet 2016-02-06 14:00:00 Yes 500 mg = 1 tab, PO, BID-Meals, # 60 tab, 0 Refill(s) [facility] Vitamin B12 1000 mcg oral tablet 2016-02-06 13:59:00 Yes 1,000 microgram = 1 tab, PO, Daily, # 30 tab, 0 Refill(s) Benigno Evan Saline Flush 0.9% 2016-02-06 13:46:00 No Notes: (Same as: BD Posiflush) Benigno Evan Ativan 2016-02-06 13:46:00 No Notes: (Same as: Ativan) [facility] dicyclomine (BENTYL) 10 mg capsule 2015-08-02 00:00:00 Yes Epigastric pain 10mg Take 1 capsule by mo ut 4 times daily before meals & at bedtime as needed. [facility] gabapentin (NEURONTIN) 100 mg capsule 2015-07-27 00:00:00 Yes Tension headache 100mg Take 1 capsule by mouth 3 times daily. [facility] predniSONE (DELTASONE) 10 mg tablet 2015-07-27 00:00:00 Yes Neck strain, sequela 10mg QD Take 1 tablet by mouth daily. [facility] methocarbamol (ROBAXIN-750) 750 mg tablet 2015-07-25 00:00:0 0 Yes Tension headache 750mg Take 1 tablet by dane th 4 times daily as needed for Other (muscle spasms). [facility] clonazePAM (KLONOPIN) 1 mg tablet 2015-03-30 12:05:34 Yes 1mg Take 1 mg by mouth 2 times daily as needed for Anxiety. [facility] Ibuprofen 600 MG Oral Tablet [Motrin] 2014-12-28 03:39:00 Y es Special Instructions: take with food [facility] Gordon Aspirin 81 MG Chewable Tablet 2014-12-28 02:46:00 No 324 mg, Route: CHEW, ONCE, Dosing Weight 81.818, kg, Priority: STAT, Start date: 12/27/14 21:46:00, Stop date: 12/27/14 21:46:00 M neelima Gordon naproxen 500 mg oral tablet 2013-12-14 17:50:00 Yes 500 mg = 1 tab, PO, Q12H, Pain, # 20 tab, 0 Refill(s) Ms pedro Gordon Ketorolac Tromethamine 30 MG/ML Injectable Solution 12-14 15:30:00 No 4 days [facility] ermann Albuterol Sulfate (Proair Hfa Inhaler*) 8.5 Gm INH Alb uterol Sulfate (Proair Hfa Inhaler*) 8.5 Gm INH Yes 1 As Needed as needed for Shortness Of Breath [facility] Azithromycin (Z-Randal) 250 Mg TABLET Azithromycin (Z-Randal) 250 Mg TABLET Yes [address] [facility] Baclofen Baclofen Yes [address] [facility] Breo Ellipta Breo Ellipta Yes Daily [facility] Clonazepam Clonazepam Yes 2 As Needed as neede d for Anxiety [facility] Decongestant Decongestant Yes [facility] Meloxicam Meloxicam Yes [address] [facility] Metformin Hcl Metformin Hcl Yes [address] [facility] Omeprazole Omeprazole Yes 40 Daily [facility] Rosuvastatin Calcium (Crestor) 10 Mg TAB Rosuvastatin Calcium (Crestor) 10 Mg TAB Yes [address] [facility] Tamiflu Tamiflu Yes [facility] Vital Signs Vital Name Observation Time Observation Value Comments Source Body Temperature 2020-02-25 15:42:00 98.4 [degF] [facility] Weight 2020-02-25 12:53:00 233 [lb_av] [facility] BMI (Body Mass Index) 2020-02-25 12:53:00 36.5 kg/m2 [facility] Weight 2020-02-21 19:28:00 233 [lb_av] [facility] BMI (Body Mass Index) 2020-02-21 19:28:00 36.5 kg/m2 [facility] Systolic (mm Hg) 2019-09-26 18:54:00 Bo rial [place] Diastolic (mm Hg) 2019-09-26 18:54:00 Mem [facility] Heart Rate 2019-09-26 18:54:00 [facility] [place] Temperature Oral (F) 2019-09-26 18:54:00 98.0 F [facility] [place] Respitory Rate 2019-09-26 18:54:00 [facility] BMI Calculated 2019-09-26 16:48:00 Mem[facility] [place] Height 2019-09-26 16:42:00 167.64 cm [facility] BMI Calculated 2019-09-26 16:42:00 [facility] Weight 2019-09-26 16:42:00 [facility] [place] Systolic (mm Hg) 2019-09-26 16:42:00 Bo rial [place] Diastolic (mm Hg) 2019-09-26 16:42:00 Mem orial [place] Heart Rate 2019-09-26 16:42:00 [facility] Respitory Rate 2019-09-26 16:42:00 [facility] Temperature Oral (F) 2019-09-26 16:42:00 98.6 F [facility] [place] Respitory Rate 2018-02-11 02:52:00 [facility] Temperature Oral (F) 2018-02-11 02:52:00 98.5 F [facility] [place] Systolic (mm Hg) 2018-02-11 02:52:00 Bo rial Evan Diastolic (mm Hg) 2018-02-11 02:52:00 Mem [facility] [place] Respitory Rate 2018-02-11 02:14:00 [facility] [place] Systolic (mm Hg) 2018-02-11 00:00:00 Bo rial [facility] Diastolic (mm Hg) 2018-02-11 00:00:00 [facility] Respitory Rate 2018-02-11 00:00:00 [facility] [place] Heart Rate 2018-02-10 23:55:00 [facility] Heart Rate 2018-02-10 22:11:00 [facility] [place] Diastolic (mm Hg) 2018-02-10 22:11:00 Mem o[facility] [place] Systolic (mm Hg) 2018-02-10 22:11:00 Bo rial [place] Temperature Oral (F) 2018-02-10 21:34:00 98.1 F [facility] [place] Heart Rate 2018-02-10 21:34:00 [facility] [place] Height 2018-02-10 21:34:00 172.72 cm [facility] [place] BMI Calculated 2018-02-10 21:34:00 [facility] Weight 2018-02-10 21:34:00 [facility] [place] Respitory Rate 2016-02-06 18:35:00 [facility] Systolic (mm Hg) 2016-02-06 18:35:00 Bo rial [facility] Diastolic (mm Hg) 2016-02-06 18:35:00 Mem o[facility] [place] Respitory Rate 2016-02-06 17:27:00 [facility] Systolic (mm Hg) 2016-02-06 17:27:00 Bo rial Evan Diastolic (mm Hg) 2016-02-06 17:27:00 Mem o[facility] [place] Respitory Rate 2016-02-06 15:30:00 [facility] Heart Rate 2016-02-06 15:30:00 [facility] [place] Systolic (mm Hg) 2016-02-06 15:30:00 Bo rial Evan Diastolic (mm Hg) 2016-02-06 15:30:00 [facility] Heart Rate 2016-02-06 13:15:00 [facility] Height 2016-02-06 13:07:00 170.18 cm [facility] [place] Weight 2016-02-06 13:07:00 [facility] [place] BMI Calculated 2016-02-06 13:07:00 [facility] Temperature Oral (F) 2016-02-06 13:07:00 98.3 F [facility] Heart Rate 2016-02-06 13:07:00 [facility] [place] Systolic (mm Hg) 2014-12-28 03:00:00 Bo [facility] [place] Diastolic (mm Hg) 2014-12-28 03:00:00 Mem [facility] Respitory Rate 2014-12-28 03:00:00 [facility] Heart Rate 2014-12-28 03:00:00 [facility] Temperature Oral (F) 2014-12-28 03:00:00 97.8 F [facility] [place] Respitory Rate 2014-12-27 22:30:00 Mem[facility] [place] Weight 2014-12-27 22:30:00 [facility] [place] Temperature Oral (F) 2014-12-27 22:30:00 97.9 F [facility] [place] Systolic (mm Hg) 2014-12-27 22:30:00 Bo rial [place] Diastolic (mm Hg) 2014-12-27 22:30:00 Mem orial [place] Heart Rate 2014-12-27 22:30:00 [facility] Diastolic (mm Hg) 2014-01-26 11:54:00 Mem [facility] Systolic (mm Hg) 2014-01-26 11:54:00 Bo rial [facility] Respitory Rate 2014-01-26 11:54:00 [facility] Temperature Oral (F) 2014-01-26 11:54:00 98.0 F [facility] [place] Heart Rate 2014-01-26 11:54:00 [facility] BMI Calculated 2014-01-26 10:19:00 [facility] [place] Height 2014-01-26 10:19:00 167.64 cm [facility] [place] Weight 2014-01-26 10:19:00 [facility] Heart Rate 2014-01-26 10:19:00 [facility] Systolic (mm Hg) 2014-01-26 10:19:00 Bo [facility] Respitory Rate 2014-01-26 10:19:00 [facility] Temperature Oral (F) 2014-01-26 10:19:00 97.8 F [facility] Diastolic (mm Hg) 2014-01-26 10:19:00 [facility] Temperature Oral (F) 2013-12-14 18:35:00 98.2 F [facility] [place] Respitory Rate 2013-12-14 18:35:00 Mem[facility] [place] Systolic (mm Hg) 2013-12-14 18:35:00 Bo rial [place] Diastolic (mm Hg) 2013-12-14 18:35:00 Mem o[facility] [place] Systolic (mm Hg) 2013-12-14 17:40:00 Bo rial [facility] Respitory Rate 2013-12-14 17:40:00 Mem[facility] [place] Diastolic (mm Hg) 2013-12-14 17:40:00 Mem [facility] [place] Systolic (mm Hg) 2013-12-14 16:40:00 Bo rial [place] Diastolic (mm Hg) 2013-12-14 16:40:00 Mem [facility] Respitory Rate 2013-12-14 16:40:00 Mem[facility] [place] Height 2013-12-14 13:16:00 167.64 cm [facility] BMI Calculated 2013-12-14 13:16:00 Memori al [place] Weight 2013-12-14 13:16:00 [facility] [place] Temperature Oral (F) 2013-12-14 13:16:00 98.0 F [facility] Heart Rate 2013-12-14 13:16:00 [facility] Procedures Procedure Date / Time Performed Performing Clinician [facility] e Computed tomography of abdomen and pelvis with contrast 00:00:00 [facility] Alonsoini repair of inguinal hernia 2008-06-10 00:00:00 [facility] Plan of Care Planned Activity Planned Date Details Comments Source Instructions Sinusitis - Acute [facility] Instructions Tonsillitis - Adult [facility] Encounters Start Date/Time End Date/Time Encounter Type Admission Type Attendi [facility] Facility Care Department Encounter ID Source 2020-02-25 12:45:00 2020-02-25 12:45:00 Registered Emergency Room [facility] [id number] [facility] 2020-02-21 19:45:00 2020-02-21 23:05:00 Departed Emergency Room 1 [facility] [id number] [facility] 2019-09-26 11:37:39 2019-09-26 13:57:00 Outpatient KaiRigo parrish Rose [facility] [id number] 2019-09-26 11:37:00 2019-09-26 11:37:00 Emergency E [id number] 2018-02-10 16:25:00 2018-02-10 21:40:00 Outpatient Linda Tubbs MHSE [facility] [id number] 2016-02-06 08:03:00 2016-02-06 13:46:00 Outpatient JonhkinaisrraelJuan MHSE MHSE [id number] 2014-12-27 17:04:00 2014-12-27 22:52:00 Outpatient Mecca Jonathon Sammie MHSE MHSE [id number] 2014-01-26 05:18:00 2014-01-26 06:58:00 Outpatient Jerome Mckeon [facility] [id number] 2013-12-14 08:10:00 2013-12-14 13:41:00 Outpatient Randee Cardona [facility] [id number] Results Test Description Test Time Test Comments Results Result Comments Source CHEST SINGLE (PORTABLE) 2020-02-25 13:28:00 [facility] [address] [address] Patient Name: VALENTE MORA JR MR #: [id number] : 1980 Age/Sex: 40/M Req #: [id number] Adm Physician: Ordered by: SAEID CROOK DO Report #: [id number] Location: ER Room/Bed: Procedure: [id number] DX/CHEST SINGLE (PORTABLE) Exam Date: 02/25/20 Exam Time: 1300 REPORT STATUS: Signed EXAMINATION: CHEST SINGLE (PORTABLE) INDICATION: Cough COMPARISON: CT abdomen and pelvis of 02/21/2020 FINDINGS: LINES/TUBES:None LUNGS:The lungs are well-inflated. No focal consolidation or pulmonary edema. PLEURA:No pleural effusion or pneumothorax. MEDIASTINUM:The cardiomediastinal silhouette appears normal in size and shape. BONES/SOFT TISSUES:No acute osseous injury. ABDOMEN:No free air under the diaphragm. IMPRESSION: No focal pneumonia or pulmonary edema. Signed by: Jass Warren MD on 02/25/2020 1:29 PM Dictated By: JASS WARREN MD 132 Transcribed By: THANG on 02/25/20 132 COPY TO: SAEID CROOK DO CT ABDOMEN/PELVIS W 2020-02-21 22:26:[address] [address] Patient Name: VALENTE MORA JR MR #: [id number] : 1980 Age/Sex: 40/M Req #: [id number] Adm Physician: Ordered by: SAEID CROOK DO Report #: [id number] Location: ER Room/Bed: Procedure: [id number] CT/CT ABDOMEN/PELVIS W Exam Date: 02/21/20 Exam Time: 1954 REPORT STATUS: Signed EXAM: CT Abdomen and Pelvis WITH contrast INDICATION: Abdominal pain , nausea, vomiting COMPARISON: None. TECHNIQUE: Abdomen and pelvis were scanned utilizing a multidetector helical scanner from the lung base to the pubic symphysis after administration of IV contrast. Coronal and sagittal reformations were obtained. Routine protocol was performed. Scan was performed when during portal venous phase. IV CONTRAST: 100 mL of Isovue 370 ORAL CONTRAST: None COMPLICATIONS: None RADIATION DOSE: Total DLP: 800 mGy*cm Estimated effective dose: (DLP x 0.015 x size factor) mSv CTDIvol has been reviewed. It is below the limits set by the Radiation Protocol Committee (RPC). Dose modulation, iterative reconstruction, and/or weight based adjustment of the mA/kV was utilized to reduce the radiation dose to as low as reasonably achievable. FINDINGS: LINES and TUBES: None. LOWER THORAX: Unremarkable HEPATOBILIARY: No focal hepatic lesions. No biliary ductal dilation. GALLBLADDER: There are cholecystectomy clips. SPLEEN: No splenomegaly. PANCREAS: No focal masses or ductal dilatation. ADRENALS: No adrenal nodules KIDNEYS/URETERS: Kidneys enhance symmetrically. No hydronephrosis. No cystic or solid mass lesions. No stones. GI TRACT: No abnormal distention, wall thickening, or evidence of bowel obstruction. Colonic diverticuli. Appendix is normal. PELVIC ORGANS/BLADDER: Unremarkable. LYMPH NODES: No lymphadenopathy. VESSELS: Unremarkable. PERITONEUM / RETROPERITONEUM: No free air or fluid. BONES: Unremarkable. SOFT TISSUES: Hernia repair mesh intact in the lower anterior peritoneum. IMPRESSION: No acute CT abnormality in the abdomen or pelvis. Colonic diverticulosis without diverticulitis. Signed by: Rc Springer DO on 02/21/2020 10:30 PM Dictated By: RC SPRINGER DO 29 Transcribed By: THANG on 02/21/202229 COPY TO: SAEID CROOK DO Blood leukocytes automated count (number/volume) 2020-02-21 19:45:00 Test Item White Blood Count (test code = 6690-2) 6.29 4.8[facility]10.8 [facility] (number/volume)2020-02-21 19:45:00* Test Item Value Reference Range Interpretation Comments Red Blood Count (test code = 789-8) 4.98 4.3-5.7 [facility] (moles/volume)2020-02-21 19:45:00* Test Item Value Reference Range Interpretation Comments Hemoglobin (test code = 53584-6) 14.9 14.0-18.0 [facility] hematocrit (volume fraction)2020-02-21 19:45:00* Test Item Value Reference Range Interpretation Comments Hematocrit (test code = 4544-3) 44.8 38.2-49.6 [facility] eryth[facility] mean corpuscular [id number] 19:45:00* Test Item Value Reference Range Interpretation Comments Mean Corpuscular Volume (test code = 787-2) 90.0 81-99 [facility] mean corpuscular hemoglobin (mass per erythrocyte)2020-02-21 19:45:00* Test Item Value Reference Range Interpretation Comments Mean Corpuscular Hemoglobin (test code = 785-6) 29.9 28-32 [facility] mean corpuscular hemoglobin concentration measurement (mass/volume)2020-02-21 19:45:00* Test Item Value Reference Range Interpretation Comments Mean Corpuscular Hemoglobin Concent (test code = 786-4) 33.3 31-35 [facility] HospitalRDW NtfSw-[id number] 19:45:00* Test Item Value Reference Range Interpretation Comments Red Cell Distribution Width (test code = 04621-4) 13.0 11.7 -14.4 [facility] HospitalAutomated blood platelet count (count/volume)2020-02-21 19:45:00* Test Item Value Reference Range Interpretation Comments Platelet Count (test code = 777-3) 277 140-360 [facility] HospitalAutomated blood segmented neutrophil count as percentage of total zvvicgflnz0865-27-87 19:45:00* Test Item Value Reference Range Interpretation Comments Neutrophils (%) (Auto) (test code = 27823-9) 53.4 38.7-80.0 [facility] HospitalAutomated blood lymphocyte count as percentage ot total kyxvazrehl2834-95-19 19:45:00* Test Item Value Reference Range Interpretation Comments Lymphocytes (%) (Auto) (test code = 736-9) 34.2 18.0-39.1 [facility] HospitalAutomated blood monocyte count as percentage of total pihrysnpuy1323-58-96 19:45:00* Test Item Value Reference Range Interpretation Comments Monocytes (%) (Auto) (test code = 5905-5) 7.5 4.4-11.3 [facility] HospitalAutomated blood eosinophil count as percentage of total ibmyliukgl8449-53-70 19:45:00* Test Item Value Reference Range Interpretation Comments Eosinophils (%) (Auto) (test code = 713-8) 3.8 0.0-6.0 [facility] HospitalAutomated blood basophil count as percentage of total jyymxjcqhp9316-35-71 19:45:00* Test Item Value Reference Range Interpretation Comments Basophils (%) (Auto) (test code = 706-2) 0.6 0.0-1.0 [facility] HospitalFluoroscopic procedure less than one hour uqufujuv9297-47-40 19:45:00* Test Item Value Reference Range Interpretation Comments IM GRANULOCYTES % (test code = IM GRANULOCYTES %) 0.5 0.0- 1.0 [facility] HospitalAutomated blood neutrophil count 2020-02-21 19:45:00* Test Item Value Reference Range Interpretation Comments Neutrophils # (Auto) (test code = 751-8) 3.4 2.1-6.9 [facility] HospitalBlood lymphocytes count (number/volume) 2020-02-21 19:45:00* Test Item Value Reference Range Interpretation Comments Lymphocytes # (Auto) (test code = 09154-8) 2.2 1.0-3.2 [facility] HospitalBlood monocytes automated count (number/volume)2020-02-21 19:45:00* Test Item Value Reference Range Interpretation Comments Monocytes # (Auto) (test code = 742-7) 0.5 0.2-0.8 [facility] HospitalAutomated blood eosinophil count 2020-02-21 19:45:00* Test Item Value Reference Range Interpretation Comments Eosinophils # (Auto) (test code = 711-2) 0.2 0.0-0.4 [facility] HospitalAutomated blood basophil count (count/volume)2020-02-21 19:45:00* Test Item Value Reference Range Interpretation Comments Basophils # (Auto) (test code = 704-7) 0.0 0.0-0.1 [facility] HospitalFluoroscopic procedure less than one hour qmupfxor7884-73-39 19:45:00* Test Item Value Reference Range Interpretation Comments Absolute Immature Granulocyte (auto (boyd t code = Absolute Immature Granulocyte (auto) 0.03 0-0.1 [facility]rum or plasma sodium measurement (moles/volume)2020-02-21 19:45:00* Test Item Value Reference Range Interpretation Comments Sodium Level (test code = 2951-2) 140 136-145 [facility]ererum or plasma potassium measurement (moles/volume)2020-02-21 19:45:00* Test Item Value Reference Range Interpretation Comments Potassium Level (test code = 2823-3) 3.9 3.5-5.1 [facility]ererum or plasma chloride measurement (moles/volume)2020-02-21 19:45:00* Test Item Value Reference Range Interpretation Comments Chloride Level (test code = 2075-0) 102 98-107 [facility]ererum or plasma carbon dioxide, total measurement (moles/volume)2020-02-21 19:45:00* Test Item Value Reference Range Interpretation Comments Carbon Dioxide Level (test code = 2028-9) 25 22-29 [facility]ererum or plasma anion ulu3944-71-24 19:45:00* Test Item Value Reference Range Interpretation Comments Anion Gap (test code = 02770-0) 16.9 8-16 [facility]ererum or plasma urea nitrogen measurement (mass/volume)2020-02-21 19:45:00* Test Item Value Reference Range Interpretation Comments Blood Urea Nitrogen (test code = 3094-0) 14 7-26 [facility]ererum or plasma creatinine measurement (mass/volume)2020-02-21 19:45:00* Test Item Value Reference Range Interpretation Comments Creatinine (test code = 2160-0) 1.04 0.72-1.25 [facility]ererum or plasma urea nitrogen/creatinine mass ellbd2564-89-18 19:45:00* Test Item Value Reference Range Interpretation Comments BUN/Creatinine Ratio (test code = 3097-3) 13 6-25 [facility] HospitalEstimated glomerular filtration rate (GFR) pwkofrdybdqyr6688-24-07 19:45:00* Test Item Value Reference Range Interpretation Comments Estimat Glomerular Filtration Rate (test code = 399214356) > 60 >60 Ranges were taken from the National Kidney Disease Education Program and the [facility] Foundation literature.Reference ranges:60 or greater: Vhyipi48-25 ( for 3 consecutive months): Chronic kidney disease 15 or less: Kidney failureSt. David's Georgetown HospitalGlucose enmegqedeuz2095-19-16 19:45:00* Test Item Value Reference Range Interpretation Comments Glucose Level (test code = RBT0168) 96 74-118 [facility]ererum or plasma calcium measurement (mass/volume)2020-02-21 19:45:00* Test Item Value Reference Range Interpretation Comments Calcium Level (test code = 73470-8) 8.8 8.4-10.2 [facility]ererum or plasma total bilirubin measurement (mass/volume)2020-02-21 19:45:00* Test Item Value Reference Range Interpretation Comments Total Bilirubin (test code = 1975-2) 0.6 0.2-1.2 [facility] HospitalFluoroscopic procedure less than one hour jehfayus3106-04-19 19:45:00* Test Item Value Reference Range Interpretation Comments Aspartate Amino Transf (AST/SGOT) (test code = Aspartate Amino Transf (AST/SGOT)) 16 5-34 [facility]ererum or plasma alanine aminotransferase measurement (enzymatic activity/volume)2020-02-21 19:45:00* Test Item Value Reference Range Interpretation Comments Alanine Aminotransferase (ALT/SGPT) (test code = 1742-6) 23 0-55 [facility]ererum or plasma protein measurement (mass/volume)2020-02-21 19:45:00* Test Item Value Reference Range Interpretation Comments Total Protein (test code = 2885-2) 7.3 6.5-8.1 [facility]ererum or plasma albumin measurement (mass/volume)2020-02-21 19:45:00* Test Item Value Reference Range Interpretation Comments Albumin (test code = 1751-7) 4.3 3.5-5.0 [facility] HospitalPlasma globulin measurement (mass/volume) 2020-02-21 19:45:00* Test Item Value Reference Range Interpretation Comments Globulin (test code = 69278-6) 3.0 2.3-3.5 [facility]ererum or plasma albumin/globulin mass srebc3587-89-24 19:45:00* Test Item Value Reference Range Interpretation Comments Albumin/Globulin Ratio (test code = 1759-0) 1.4 0.8-2.0 [facility]ererum or plasma alkaline phosphatase measurement (enzymatic activity/volume)2020-02-21 19:45:00* Test Item Value Reference Range Interpretation Comments Alkaline Phosphatase (test code = 6768-6) 103 40-150 [facility]ererum or plasma creatine kinase measurement (enzymatic activity/volume)2020-02-21 19:45:00* Test Item Value Reference Range Interpretation Comments Creatine Kinase (test code = 2157-6) 50 30-200 [facility]ererum or plasma creatine kinase MB measurement (mass/volume)2020-02-21 19:45:00* Test Item Value Reference Range Interpretation Comments Creatine Kinase MB (test code = 58104-4) 0.90 0-5.0 [facility] HospitalTroponin I measurement by highly sensitive enzyme ttlxwikmkik1210-43-17 19:45:00* Test Item Value Reference Range Interpretation Comments Troponin I (test code = 88752-4) 0.001 0-0.300 [facility]ererum or plasma lipase measurement (enzymatic activity/volume)2020-02-21 19:45:00* Test Item Value Reference Range Interpretation Comments Lipase (test code = 3040-3) 19 8-78 [facility] HospitalBlood leukocytes automated count (number/volume)2020-02-21 19:45:00* Test Item Value Reference Range Interpretation Comments White Blood Count (test code = 6690-2) 6.29 4.8-10.8 [facility] HospitalBlood erythrocytes automated count (number/volume)2020-02-21 19:45:00* Test Item Value Reference Range Interpretation Comments Red Blood Count (test code = 789-8) 4.98 4.3-5.7 [facility] HospitalBlood hemoglobin measurement (moles/volume)2020-02-21 19:45:00* Test Item Value Reference Range Interpretation Comments Hemoglobin (test code = 53305-5) 14.9 14.0-18.0 [facility] HospitalAutomated blood hematocrit (volume fraction)2020-02-21 19:45:00* Test Item Value Reference Range Interpretation Comments Hematocrit (test code = 4544-3) 44.8 38.2-49.6 [facility] HospitalAutomated erythrocyte mean corpuscular xtfizc8395-86-58 19:45:00* Test Item Value Reference Range Interpretation Comments Mean Corpuscular Volume (test code = 787-2) 90.0 81-99 [facility] HospitalAutomated erythrocyte mean corpuscular hemoglobin (mass per erythrocyte)2020-02-21 19:45:00* Test Item Value Reference Range Interpretation Comments Mean Corpuscular Hemoglobin (test code = 785-6) 29.9 28-32 [facility] HospitalAutomated erythrocyte mean corpuscular hemoglobin concentration measurement (mass/volume)2020-02-21 19:45:00* Test Item Value Reference Range Interpretation Comments Mean Corpuscular Hemoglobin Concent (test code = 786-4) 33.3 31-35 [facility] HospitalRDW PxwDr-Ido6075-12-13 19:45:00* Test Item Value Reference Range Interpretation Comments Red Cell Distribution Width (test code = 30934-0) 13.0 11.7 -14.4 [facility] HospitalAutomated blood platelet count (count/volume)2020-02-21 19:45:00* Test Item Value Reference Range Interpretation Comments Platelet Count (test code = 777-3) 277 140-360 [facility] HospitalAutomated blood segmented neutrophil count as percentage of total knucteedwo0176-18-90 19:45:00* Test Item Value Reference Range Interpretation Comments Neutrophils (%) (Auto) (test code = 59215-2) 53.4 38.7-80.0 [facility] HospitalAutomated blood lymphocyte count as percentage ot total mgutsbtzqw0468-19-75 19:45:00* Test Item Value Reference Range Interpretation Comments Lymphocytes (%) (Auto) (test code = 736-9) 34.2 18.0-39.1 [facility] HospitalAutomated blood monocyte count as percentage of total lhboqwicfz9437-49-65 19:45:00* Test Item Value Reference Range Interpretation Comments Monocytes (%) (Auto) (test code = 5905-5) 7.5 4.4-11.3 [facility] HospitalAutomated blood eosinophil count as percentage of total wwawehjugo6079-43-83 19:45:00* Test Item Value Reference Range Interpretation Comments Eosinophils (%) (Auto) (test code = 713-8) 3.8 0.0-6.0 [facility] HospitalAutomated blood basophil count as percentage of total ybierooegu8007-19-37 19:45:00* Test Item Value Reference Range Interpretation Comments Basophils (%) (Auto) (test code = 706-2) 0.6 0.0-1.0 [facility] HospitalFluoroscopic procedure less than one hour xdzmxhvc0304-05-08 19:45:00* Test Item Value Reference Range Interpretation Comments IM GRANULOCYTES % (test code = IM GRANULOCYTES %) 0.5 0.0- 1.0 [facility] HospitalAutomated blood neutrophil count 2020-02-21 19:45:00* Test Item Value Reference Range Interpretation Comments Neutrophils # (Auto) (test code = 751-8) 3.4 2.1-6.9 [facility] HospitalBlood lymphocytes count (number/volume) 2020-02-21 19:45:00* Test Item Value Reference Range Interpretation Comments Lymphocytes # (Auto) (test code = 35941-1) 2.2 1.0-3.2 [facility] HospitalBlood monocytes automated count (number/volume)2020-02-21 19:45:00* Test Item Value Reference Range Interpretation Comments Monocytes # (Auto) (test code = 742-7) 0.5 0.2-0.8 [facility] HospitalAutomated blood eosinophil count 2020-02-21 19:45:00* Test Item Value Reference Range Interpretation Comments Eosinophils # (Auto) (test code = 711-2) 0.2 0.0-0.4 [facility] HospitalAutomated blood basophil count (count/volume)2020-02-21 19:45:00* Test Item Value Reference Range Interpretation Comments Basophils # (Auto) (test code = 704-7) 0.0 0.0-0.1 [facility] HospitalFluoroscopic procedure less than one hour msmbyykv8597-29-96 19:45:00* Test Item Value Reference Range Interpretation Comments Absolute Immature Granulocyte (auto (boyd t code = Absolute Immature Granulocyte (auto) 0.03 0-0.1 [facility]ererum or plasma sodium measurement (moles/volume)2020-02-21 19:45:00* Test Item Value Reference Range Interpretation Comments Sodium Level (test code = 2951-2) 140 136-145 [facility]ererum or plasma potassium measurement (moles/volume)2020-02-21 19:45:00* Test Item Value Reference Range Interpretation Comments Potassium Level (test code = 2823-3) 3.9 3.5-5.1 [facility]ererum or plasma chloride measurement (moles/volume)2020-02-21 19:45:00* Test Item Value Reference Range Interpretation Comments Chloride Level (test code = 2075-0) 102 98-107 [facility]ererum or plasma carbon dioxide, total measurement (moles/volume)2020-02-21 19:45:00* Test Item Value Reference Range Interpretation Comments Carbon Dioxide Level (test code = 2028-9) 25 22-29 [facility]ererum or plasma anion kre7261-88-56 19:45:00* Test Item Value Reference Range Interpretation Comments Anion Gap (test code = 64900-3) 16.9 8-16 [facility]ererum or plasma urea nitrogen measurement (mass/volume)2020-02-21 19:45:00* Test Item Value Reference Range Interpretation Comments Blood Urea Nitrogen (test code = 3094-0) 14 - [facility]ererum or plasma creatinine measurement (mass/volume)2020-02-21 19:45:00* Test Item Value Reference Range Interpretation Comments Creatinine (test code = 2160-0) 1.04 0.72-1.25 [facility]ererum or plasma urea nitrogen/creatinine mass yypap5890-74-88 19:45:00* Test Item Value Reference Range Interpretation Comments BUN/Creatinine Ratio (test code = 3097-3) 13 12-02 [facility] HospitalEstimated glomerular filtration rate (GFR) hqqazblqfiozf3954-11-72 19:45:00* Test Item Value Reference Range Interpretation Comments Estimat Glomerular Filtration Rate (test code = 165205424) > 60 >60 Ranges were taken from the National Kidney Disease Education Program and the [facility] literature.Reference ranges:60 or greater: Ucibqz07-57 ( for 3 consecutive months): Chronic kidney disease 15 or less: Kidney failureSt. David's Ge[facility] HospitalGlucose yiiylsuenfa7815-66-91 19:45:00* Test Item Value Reference Range Interpretation Comments Glucose Level (test code = NVV8190) 96 74-118 [facility]ererum or plasma calcium measurement (mass/volume)2020-02-21 19:45:00* Test Item Value Reference Range Interpretation Comments Calcium Level (test code = 09081-7) 8.8 8.4-10.2 [facility]ererum or plasma total bilirubin measurement (mass/volume)2020-02-21 19:45:00* Test Item Value Reference Range Interpretation Comments Total Bilirubin (test code = 1975-2) 0.6 0.2-1.2 [facility] HospitalFluoroscopic procedure less than one hour ndylzngq5165-43-77 19:45:00* Test Item Value Reference Range Interpretation Comments Aspartate Amino Transf (AST/SGOT) (test code = Aspartate Amino Transf (AST/SGOT)) 16 5-34 [facility]ererum or plasma alanine aminotransferase measurement (enzymatic activity/volume)2020-02-21 19:45:00* Test Item Value Reference Range Interpretation Comments Alanine Aminotransferase (ALT/SGPT) (test code = 1742-6) 23 0-55 [facility]ererum or plasma protein measurement (mass/volume)2020-02-21 19:45:00* Test Item Value Reference Range Interpretation Comments Total Protein (test code = 2885-2) 7.3 6.5-8.1 [facility]ererum or plasma albumin measurement (mass/volume)2020-02-21 19:45:00* Test Item Value Reference Range Interpretation Comments Albumin (test code = 1751-7) 4.3 3.5-5.0 [facility] HospitalPlasma globulin measurement (mass/volume) 2020-02-21 19:45:00* Test Item Value Reference Range Interpretation Comments Globulin (test code = 33890-0) 3.0 2.3-3.5 [facility]ererum or plasma albumin/globulin mass wblfq6662-13-00 19:45:00* Test Item Value Reference Range Interpretation Comments Albumin/Globulin Ratio (test code = 1759-0) 1.4 0.8-2.0 [facility]ererum or plasma alkaline phosphatase measurement (enzymatic activity/volume)2020-02-21 19:45:00* Test Item Value Reference Range Interpretation Comments Alkaline Phosphatase (test code = 6768-6) 103 40-150 [facility]ererum or plasma creatine kinase measurement (enzymatic activity/volume)2020-02-21 19:45:00* Test Item Value Reference Range Interpretation Comments Creatine Kinase (test code = 2157-6) 50 30-200 [facility]ererum or plasma creatine kinase MB measurement (mass/volume)2020-02-21 19:45:00* Test Item Value Reference Range Interpretation Comments Creatine Kinase MB (test code = 68132-1) 0.90 0-5.0 [facility] HospitalTroponin I measurement by highly sensitive enzyme gofxjgheemv8303-70-50 19:45:00* Test Item Value Reference Range Interpretation Comments Troponin I (test code = 49076-5) 0.001 0-0.300 [facility]ererum or plasma lipase measurement (enzymatic activity/volume)2020-02-21 19:45:00* Test Item Value Reference Range Interpretation Comments Lipase (test code = 3040-3) 19 8-78 [facility] HospitalUrine color qogbdqeudwtjw9118-87-41 19:31:00* Test Item Value Reference Range Interpretation Comments Urine Color (test code = 5778-6) YELLOW YELLOW [facility] HospitalUrine toloytd9347-53-70 19:31:00* Test Item Value Reference Range Interpretation Comments Urine Clarity (test code = 87705-7) HAZY CLEAR [facility] Centerpecific gravity of Urine by Test strip 2020-02-21 19:31:00* Test Item Value Reference Range Interpretation Comments Urine Specific [place] (test code = 5811-5) 1.020 1.010-1.[address] [facility] HospitalUrine pH measurement by automated test pqomr1728-52-33 19:31:00* Test Item Value Reference Range Interpretation Comments Urine pH (test code = 35053-6) 7 5-7 [facility] HospitalUrine leukocyte esterase detection by nmiiktui8707-66-82 19:31:00* Test Item Value Reference Range Interpretation Comments Urine Leukocyte Esterase (test code = 5799-2) NEGATIVE NEGATIVE [facility] HospitalUrine nitrite wzocesmgk5082-28-38 19:31:00* Test Item Value Reference Range Interpretation Comments Urine Nitrite (test code = 54978-1) NEGATIVE NEGATIVE [facility] HospitalUrine protein measurement by test strip (mass/volume)2020-02-21 19:31:00* Test Item Value Reference Range Interpretation Comments Urine Protein (test code = 5804-0) NEGATIVE NEGATIVE [facility] HospitalUrine glucose sdqxqfool5643-23-11 19:31:00* Test Item Value Reference Range Interpretation Comments Urine Glucose (UA) (test code = 2349-9) NEGATIVE NEGATIVE [facility] HospitalUrine ketones detection by automated test bbqxq8309-86-54 19:31:00* Test Item Value Reference Range Interpretation Comments Urine Ketones (test code = 16996-9) NEGATIVE NEGATIVE [facility] HospitalUrine urobilinogen measurement by test strip (mass/volume)2020-02-21 19:31:00* Test Item Value Reference Range Interpretation Comments Urine Urobilinogen (test code = 21871-1) 0.2 0.2-1 [facility] HospitalUrine total bilirubin measurement (mass/volume)2020-02-21 19:31:00* Test Item Value Reference Range Interpretation Comments Urine Bilirubin (test code = 1978-6) NEGATIVE NEGATIVE [facility] HospitalUrine erythrocytes htmhjuypc9557-05-78 19:31:00* Test Item Value Reference Range Interpretation Comments Urine Blood (test code = 97048-9) TRACE NEGATIVE [facility] HospitalAutomated urine sediment leukocyte count by microscopy (number/high power field)2020-02-21 19:31:00* Test Item Value Reference Range Interpretation Comments Urine WBC (test code = 5821-4) 0-5 0-5 [facility] HospitalErythrocytes detection in urine sediment by light wjpykbrxnw8776-04-58 19:31:00* Test Item Value Reference Range Interpretation Comments Urine RBC (test code = 32711-9) 0-5 0-5 [facility] HospitalBacteria detection in urine sediment by light vuyybvgune5972-60-44 19:31:00* Test Item Value Reference Range Interpretation Comments Urine Bacteria (test code = 65824-9) FEW NONE [facility] HospitalEpithelial cells detection in urine sediment by light tlnwufnols5077-72-94 19:31:00* Test Item Value Reference Range Interpretation Comments Urine Epithelial Cells (test code = 00917-2) FEW NONE [facility] HospitalUrine color vymvvzcnsdtzc7708-29-87 19:31:00* Test Item Value Reference Range Interpretation Comments Urine Color (test code = 5778-6) YELLOW YELLOW [facility] HospitalUrine vemdtto9415-75-59 19:31:00* Test Item Value Reference Range Interpretation Comments Urine Clarity (test code = 29950-1) HAZY CLEAR [facility] Centerpecific gravity of Urine by Test strip 2020-02-21 19:31:00* Test Item Value Reference Range Interpretation Comments Urine Specific [place] (test code = 5811-5) 1.020 1.010-1.[address] [facility] HospitalUrine pH measurement by automated test zvbiv1811-63-83 19:31:00* Test Item Value Reference Range Interpretation Comments Urine pH (test code = 67397-9) 7 5-7 [facility] HospitalUrine leukocyte esterase detection by qdyyuynn6162-31-03 19:31:00* Test Item Value Reference Range Interpretation Comments Urine Leukocyte Esterase (test code = 5799-2) NEGATIVE NEGATIVE [facility] HospitalUrine nitrite fgloehxvt4801-47-13 19:31:00* Test Item Value Reference Range Interpretation Comments Urine Nitrite (test code = 54513-0) NEGATIVE NEGATIVE [facility] HospitalUrine protein measurement by test strip (mass/volume)2020-02-21 19:31:00* Test Item Value Reference Range Interpretation Comments Urine Protein (test code = 5804-0) NEGATIVE NEGATIVE [facility] HospitalUrine glucose acpnzysvy3571-53-69 19:31:00* Test Item Value Reference Range Interpretation Comments Urine Glucose (UA) (test code = 2349-9) NEGATIVE NEGATIVE [facility] HospitalUrine ketones detection by automated test leqrs2364-59-92 19:31:00* Test Item Value Reference Range Interpretation Comments Urine Ketones (test code = 20762-2) NEGATIVE NEGATIVE [facility] HospitalUrine urobilinogen measurement by test strip (mass/volume)2020-02-21 19:31:00* Test Item Value Reference Range Interpretation Comments Urine Urobilinogen (test code = 91112-5) 0.2 0.2-1 [facility] HospitalUrine total bilirubin measurement (mass/volume)2020-02-21 19:31:00* Test Item Value Reference Range Interpretation Comments Urine Bilirubin (test code = 1978-6) NEGATIVE NEGATIVE [facility] erythrocytes nxclalupc9693-14-99 19:31:00* Test Item Value Reference Range Interpretation Comments Urine Blood (test code = 66615-7) TRACE NEGATIVE [facility] HospitalAutomated urine sediment leukocyte count by microscopy (number/high power field)2020-02-21 19:31:00* Test Item Value Reference Range Interpretation Comments Urine WBC (test code = 5821-4) 0-5 0-5 [facility] HospitalErythrocytes detection in urine sediment by light yelhgljbiz8701-11-20 19:31:00* Test Item Value Reference Range Interpretation Comments Urine RBC (test code = 94386-6) 0-5 0-5 [facility] HospitalBacteria detection in urine sediment by light eeawwqbwma4251-46-98 19:31:00* Test Item Value Reference Range Interpretation Comments Urine Bacteria (test code = 31287-1) FEW NONE [facility] HospitalEpithelial cells detection in urine sediment by light hiqyhevnyr4677-80-93 19:31:00* Test Item Value Reference Range Interpretation Comments Urine Epithelial Cells (test code = 33650-1) FEW NONE [facility] HospitalCARDIAC GWVOQYA3959-61-55 17:06:00<0.02 [facility]M OBUUF5933-55-77 17:06:96973Xkfmnxem HermannCHEM PANEL 2019-09-26 17:06:0014[facility]annCHEM NRJIB3196-56-90 17:06:000.94[facility]annCHEM NJEIY4101-93-47 17:06:00206Adlupjid HermannCHEM OOSYX5967-68-20 17:06:003.5[facility]annCHEM XTDHN5494-04-41 17:06:06857Erlpcobr HermannCHEM EFPLM1312-54-31 17:06:0026[facility]annCHEM RTZSE6450-22-46 17:06:009.1 [facility]CHE[facility] VXBQT3459-86-74 17:06:0011.5[facility]annCHEM PANEL 2019-09-26 17:06:95439Tnwhzhua FcjjghpAQXXMPZQIJ5750-43-65 17:06:006.9[facility] FymxynfFIILASBPML9538-62-79 17:06:005.38[facility] EcyrjysNELOOHCUTL6788-95-45 17:06:0016.6[facility] XpfosekAHCRTUYWHE4416-48-29 17:06:0049.3[facility] Evan AJOIZXGLYK8594-69-97 17:06:0091.6[facility] GsrzqndUECQKUSTCM3123-38-97 17:06:00* Test Item Value Reference Range Interpretation Comments MCH (test code = MCH) 30.9 pg 27.0-31.0 [facility] VklmfmmAXVIZQHCRE2637-09-60 17:06:0033.8[facility] HermannHEMATOLOGY 2019-09-26 17:06:0013.3[facility] ScuwgnsUIMUWQZISL0879-10-03 17:06:43753Hpsamnqv PruciyyRQXCQFTPGN4729-34-43 17:06:008.0[facility] QbdikbkXKQJKPSWOD0239-10-53 17:06:0080.5[facility] CpatxvdDOWYTKHTEY5577-70-62 17:06:0013.1[facility] GUCCIPQSRC0324-81-28 17:06:004.5[facility] AjmtsufBFQRJKULCO1308-47-63 17:06:001.9 [facility] KoemojwNZXNFSEKUM3695-99-70 17:06:005.6[facility] HermannHEMATOLOGY 2019-09-26 17:06:000.9[facility] IfdvddhECEBTLIYRV4927-95-78 17:06:000.3[facility] GgvfqiuNJARINULUY8134-85-50 17:06:000.1[facility] HermannCOMPREHENSIVE METABOLIC BEXAE9970-99-59 09:01:00* Test Item Value Reference Range Interpretation Comments SODIUM (test code = NA) 136 mEq/L [...] code = ALKP) 107 IUnit/L 20-125 N DECOOR1475-46-90 09:01:00* Test Item Value Reference Range Interpretation Comments LIPASE (test code = LIP) 73 IUnit/L 73-393 N FGSDBPEA-V7638-87-16 09:01:00* Test Item Value Reference Range Interpretation Comments TROPONIN-I (test code = TROPI) < 0.015 ng/mL 0.000-0.045 N Negative: <= 0.045 Positive: >= 0.046 Correlation with serial results, other cardiac markers andclinical findings is necessary to determine the clinicalsignificance of this result. Results using different methodologies should not be comparedto one another as quantitative results may vary by method. CBC W/AUTO AFNG0394-02-54 08:24:00* Test Item Value Reference Range Interpretation [...] = MDIFF) NO - XR CHEST 1 G1515-01-61 08:24:00 FAX: Bin Corley MD [phone] [place]: St: [facility] FAX: Iraj Larsen [phone] Name: VALENTE MORA [facility] [place] : 1980 Age/S: 39/M [address] [facility] Unit #: [id number] Loc: [place] [address] Phys: Iraj Larsen Acct: [id number] Dis Date: Status: REG ER PHONE #: [phone] Exam Date: 09/24/2019818 FAX #: [phone] Reason: cough, hemoptysis EXAMS: CPT CODE: [id number] XR CHEST 1 V 61502 EXAM: Single view AP chest. EXAM DATE: 09/24/2019 08 CLINICAL HISTORY: cough, hemoptysis COMPARISON: April 25, 2019 at 2007 hours Cardiomediastinal silhouette is within normal limits. The lungs appear free of acute disease. Elevation of the right hemidiaphragm is stable. Imaged osseous structures demonstrate no acute findings. IMPRESSION: No evidence of acute cardiopulmonary disease. at 0824 Reported and signed by: Shelley Bonilla M.D. CC: Bin Reynolds M.D.; Iraj HIGUERA Techn ologist: RT Tim(Patricia) Trnscrd Date/Joe e/By: 09/24/2019 (823) : By: Ignacio Orig Print D/T: S: 09/24/2019 (80) PAGE 1 Signed Report - CT ABD PELVIS W/OKVK5600-88-47 23:43:00 Name: VALENTE MORA [facility] [place] : 1980 Age/S: 39 / M [address] [facility] Unit #: [id number] Loc: [place] [address] Phys: Ceasar Sanderson Acct: [id number] Di s Date: Status: REG ER PHONE #: Exam Date: 06/26/20192316 FAX #: Reason: RLQ pain EXAMS: CPT CODE: [id number] CT ABD PELVIS W/CONT 73363 EXAM: CT, CT ABDO MEN PELVIS W [...] techniques as appropriate to perform exam including th e following: * Automated exposure control * Adjustment [...] no aortic aneurysm or dissection. LYMPH NODES: Unremarkable . PELVIS: No pelvic mass or adenopathy. PAGE 1 Signed Report (CONTINUED) Name: VALENTE MORA [facility] : 1980 Age/S: 39 / M [address] [place] [address] Unit #: [id number] Loc: [place] [address] Phys: Vicenta Sanderson Acct: [id number] Dis Date: Stat us: REG ER PHONE #: [phone] Exam Date: 06/26/2019 2317 FAX #: [phone] Reason: RLQ pain EXAMS: CPT CODE: [id number] CT ABD PELVIS W/CONT 05436 <Continued> BLADDER: Unremarkable. Prostatitic calcification. OSSEOUS STRUCTURES: No acute abnormality seen. SOFT TISSUES: Ventral hernia repair changes.. IMPRESSION: 1. No acute abdominal or pelvic abnormality. No significant interval change. 2. No evidence for appendicitis. 3. Hepatic steatosis. 4. Sigmoid diverticulosis without diverticulitis. 5. Cholecystectomy. SL: JSYED-H at 2343 Reported and signed by: Jair Arcos M.D. CC: Bin Reynolds M.D.; Vicenta HIGUERA Technologist:Jenny Wing, RT(R)(CT) CTDI: DLP: Trnscb Date/Time: 06/26/2019 (0243) [email or web address] Orig Print D/T: S: 06/26/2019 (6886) PAGE 2 Signed Report BASIC METABOLIC BBRVX5340-04-51 23:33:00* Test Item Value Reference Range Interpretation [...] CA) 8.8 mg/dL 8.0-10.5 N BASIC METABOLIC EBVUI5856-02-97 23:29:00* Test Item Value Reference Range Interpretation [...] CA) 8.8 mg/dL 8.0-10.5 N CBC W/AUTO XZKP7706-57-65 23:16:00* Test Item Value Reference Range Interpretation [...] REQUIRED (test code = MDIFF) NO URINALYSIS AILWTZNA8973-79-40 22:32:00* Test Item Value Reference Range Interpretation [...] - XR ABDOMEN 1V (KUB)2019-06-26 22:16:00 FAX: Bin Corley MD [phone] [place]: St: PRE FAX: Vicenta Bhatia [phone] Name: VALENTE MORA [facility] : 1980 Age/S: 39/M [address] [place] [address] Blvd Unit #: [id number] Loc: [place] [address] Phys: Vicenta Sanderson Acct: [id number] Dis Date: Status: PRE ER PHONE #: [phone] Exam Date: 06/26/20192211 FAX #: [phone] Reason: RLQ pain EXAMS: CPT CODE: [id number] XR ABDOMEN 1V (KUB) 24499 Procedure: Abdominal Radiograph. Clinical Indicati on: Right lower quadrant pain. Comparison: None. FIN [...] and signed by: Olu Vigil M.D. CC: Bin Reynolds M.D.; Vicenta HIGUERA Technologist: RT Darryl(Patricia) Trnscrd Date/Time/By: 06/26/2019 (6) : By: Tracie Orig Print D/T: S: 06/26/2019 (1897) PAGE 1 Signed Report COMPREHENSIVE METABOLIC PANEL [...] code = ALKP) 128 IUnit/L 20-125 H MYBNJK8686-67-70 17:49:00* Test Item Value Reference Range Interpretation Comments LIPASE (test code = LIP) 154 IUnit/L 73-393 N LACTIC DXDB4766-57-40 17:49:00* Test Item Value Reference Range Interpretation Comments LACTIC ACID (test code = LACT) 1.3 mmol/L 0.4-1.9 N - CT ABD PELVIS W/HGTH9833-18-81 17:46:00 Name: VALENTE MORA [facility] : 1980 Age/S: 39 / M [address] [place] [address] Blvd Unit #: [id number] Loc: [facility] [place] [address] Phys: Deborah Belcher Acct: [id number] Dis Date: Status: REG ER PHONE #: [phone] Exam Date: 06/21/2019 1725 FAX #: [phone] Reason: ABDOMINAL PAIN; VOMITING/DIARRHEA EXAMS: CPT CODE: [id number] CT ABD PELVIS W/CONT 69364 CT ABDOMEN AND PELVIS WITH CONTRAST AND [...] Noninflamed appendix. PAGE 1 Signed Report (CONTINUED) Nam e: VALENTE MORA [facility] : Age/S: 39 / M [address] [place] [address] Unit #: [id number] Loc: [place] [address] Phys: Deborah Belcher [employer]PORATE SECURITY OFFICER Acct: [id number] Dis Heath e: Status: REG ER PHONE #: Exam Date: 06/21/2019 9403 FAX #: [phone] Reason: ABDOMINAL PAIN; VOMITING/DIARRHEA EXAMS: CPT CODE: [id number] CT [place]EL[place] [address] <Continued> ____ CT imaging performed at this location utilizes radiation dose optimization techniques which include one or more of the following: - Automated exposure control -Adjustment of the mA and/or kV according to patient size -Use of iterative reconstruction technique SL: ER-H at 1746 Reported and signed by: Young Queen M.D. CC: Bin Reynolds M.D.; Deborah Belcher Technologist:Lani Bernard, RT(R)(CT) CTDI: DLP: Trnscb Date/Time: 06/21/2019 (1745) [email or web address] Orig Print D/T: S: 06/21/2019 (1748) PAGE 2 Signed Report UA RFLX MICR CULT IF ASPOBSOAV6142-05-46 17:42:00* Test Item Value Reference Range Interpretation [...] SEEN Indication for culture: Dysuria/FrequencySpecimen Description: MID STREAMCBC W/AUTO SUJV5588-57-40 17:36:00* Test Item Value Reference Range Interpretation [...] code = MDIFF) NO - US ABDOMEN [id number] 17:15:00 Name: VALENTE MORA [facility] : 1980 Age/S: 39 / M [address] [place] [address] Unit #: [id number] Loc: [place] [address] Phys: Deborah Belcher [employer]PORATE SECURITY OFFICER Acct: [id number] Dis Date: Status: REG ER PHONE #: [phone] Exam Date: 06/21/2019 1657 FAX #: [phone] Reason: RUQ ABDOMINAL PAIN EXAMS: CPT CODE: [id number] US ABDOMEN LTD 86173 Clinical Indication: RUQ ABDOMINAL PAIN; Comparison: None [...] 1 Signed Report (CONTINUED) Name: VALENTE BENEDICT : 1980 Age/S: 39 / M [address] [place] [address] Blvd Unit #: [id number] L oc: [place] [address] Phys: Deborah Belcher Acct: [id number] Dis Date: Status: REG ER PHONE #: [phone] Exam Date: 06/21/2019 1657 FAX #: [phone] [place] son: RUQ ABDOMINAL PAIN EXAMS: CPT CODE: [id number] ABDOMEN LTD 16107 <Continued> CC: Bin Reynolds M.D.; Deborah Belcher Technologist: Samantha Levy RDMS(OB)(AB) Trnscb Date/Time: 06/21/2019 (171) [email or web address] Orig Print D/T: S: 06/21/2019 (1717) Probe: PAGE 2 Signed Report BASIC METABOLIC JPGRO3264-05-37 20:33:00* Test Item Value Reference Range Interpretation [...] code = CA) 9.3 mg/dL 8.5-10.1 N OHIFEZLA-R9486-41-16 20:33:00* Test Item Value Reference Range Interpretation Comments TROPONIN-I (test code = TROPI) <0.015 ng/mL 0-0.045 N - XR CHEST 1 Y5738-77-97 20:27:00 FAX: Luan Strange MD [phone] [place]: St: [facility] FAX: Bin Corley MD [phone] Name: VALENTE MORA [facility] : 1980 Age/S: 39/M [address] [facility] Unit #: [id number] Loc: [place] [address] Phys: Luan Strange MD Acct: [id number] Dis Date: Status: REG ER PHONE #: [phone] Exam Date: 04/25/20192009 FAX #: [phone] Reason: CHEST PAIN EXAMS: CPT CODE: [id number] XR CHEST 1 V 02452 REASON FOR EXAM: CHEST PAIN Exam Order [...] limits. IMPRESSION: No acute cardiopulmonary process. Location: [facility] El ectronically Signed by Reuben Laguerre MD on 04/25/2019 at 2026 Reported and signed by: Reuben Laguerre MD CC: Luan Strange MD; Bin Wren cia Technologist: Yasmine Larson) Trnscrd Date/Time/By: 04/25/2019 (2026) : By: [email or web address] Orig Print D/T: S: 04/25/2019 (2029) PAGE [...] MPV) 9.2 fL 6.7-11.0 N BASIC METABOLIC [id number] 20:20:00* Test Item Value Reference Range Interpretation [...] CALCIUM (test code = CA) mg/dL 8.5-10.1 UVNHGZYU-U5818-53-16 20:20:00* Test Item Value Reference Range Interpretation Comments TROPONIN-I (test code = TROPI) ng/mL 0-0.045 CBC W/O KVQK7950-96-64 20:17:00* Test Item Value Reference Range Interpretation [...] VOLUME (test code = MPV) fL 6.7-11.0 CBC W/AUTO CKBB4768-05-78 10:17:00* Test Item Value Reference Range Interpretation [...] = MDIFF) NO - XR CHEST 1 G1268-28-02 09:53:00 FAX: Bin Corley MD [phone] [place]: St: [facility] FAX: Iraj Larsen [phone] Name: VALENTE MORA JR [facility] : 1980 Age/S: 39/M [address] [place] [address] Unit #: [id number] Loc: [place] [address] Phys: Iraj Larsen Acct: [id number] Dis Date: Status: REG ER PHONE #: [phone] Exam Date: 02/19/2019925 FAX #: [phone] Reason: cough, congestion, fever EXAMS: CPT CODE: [id number] XR CHEST 1 V 38574 1 view chest portable: HISTORY: Cough and fever FINDINGS: Both lungs are clear. No infiltrate or pleural fluid. The heart and mediastinal contour stable from 01/31/2019. IMPRESSION: No acute finding. SL: [id number] at 0953 Reported and signed by: Eddie Cox M.D. CC: Bin Reynolds M.D.; Iraj HIGUERA Technologist: PENELOPE Quintero) Trnscrd Date/Time/By: 02/19/2019 (0953) : By: StellaG Orig Print D/T: S: 02/19/2019 (0956) PAGE 1 Signed Report CDWGQP2186-59-54 09:28:00* Test Item Value Reference Range Interpretation Comments LIPASE (test code = LIP) 109 IUnit/L 73-393 N URINALYSIS DFZTKDGO6039-99-57 07:49:00* Test Item Value Reference Range Interpretation [...] 4+ /LPF NONE SEEN A BASIC METABOLIC TQIPP9376-47-03 07:08:00* Test Item Value Reference Range Interpretation [...] 8.0-10.5 N - CT ABD PELVIS W/O AETA3840-06-80 07:05:00 Name: VALENTE MORA [facility] : 1980 Age/S: 39 / M [address] [place] [address] Blvd Unit #: [id number] Loc: [place] [address] Phys: Estevan Castillo [employer] MARKETING COORDINATOR Acct: [id number] Dis Date: Status: REG ER PHONE #: [phone] Exam Date: 02/19/2019 0648 FAX #: [phone] Reason: R flank pain and lower abd pain EXAMS: CPT CODE: [id number] CT ABD PELVIS W/O CONT 44849 PROCEDURE: CT ABDOMEN AND PELVIS WITHOUT CONTRAST [...] absent SPLEEN: Normal. PANCREAS: Normal. ADRENALS: Normal. BOWEL : The unopacified stomach and small bowel are unremarkable. No CT evidence for appendicitis. Scattered fecal material within normal caliber colon. F ew scattered left-sided colonic diverticula. No inflammatory changes. PAGE 1 Signed Report (CONTINUED) Nam e: VALENTE MORA [facility] : Age/S: 39 / M [address] [place] [address] Blvd Unit #: [id number] Loc: [place] [address] Phys: Estevan Castillo NP Acct: [id number] Dis Heath e: Status: REG ER PHONE #: Exam Date: 02/19/2019 0648 FAX #: [phone] Reason: R flank pain and lower abd pain EXAMS: CPT CODE: [id number] CT ABD PELVIS W/O CONT 99025 <Continued> PERITONEUM: No free intraperitoneal fluid or air. RETROPERITONEUM: No adenopathy. The aorta is normal. PELVIS: No pelvic mass. The urinary bladder is normal. MUSCULOSKELETAL: The skeleton is intact. IMPRESSION: 1. No urinary calculus or evidence for obstruction. 2. Mild symmetric perinephric stranding is chronic and nonspecific. Renal inflammation included in the differential. Please correlate with urinalysis. 3. Hepatic steatosis. SL: [id number] at 0705 Reported and signed by: Abhilash Bonilla M.D. CC: Estevan Castillo NP Techno logist:Efren Stack RT(R) CTDI: DLP: Trnscb Date/Time : 02/19/2019 (0705) DarynL Orig Print D/T: S: 02/20/20 19 (3337) PAGE 2 Signed Report - XR CHEST 2 [id number] 14:42:00 FAX: Alondra Delcid NP [phone] [place]: St: PRE Name: VALENTE BASHIR [facility] : [birth year] Age/S: 39/M [address] [place] [address] Bl Unit #: [id number] Loc: [place] [address] Phys: Alondra Delcid NP Acct: [id number] Dis Date: Status: PRE ER PHONE #: [phone] Exam Date: 01/31/2019 1432 FAX #: [phone] Reason: cough EXAMS: CPT CODE: [id number] XR CHEST 2 V 16743 PROCEDURE: Chest Radiograph. Clinical Indication: Cough, difficulty [...] radiographic evidence of acute cardiopulmonary disease. SL: CYBibH Electronically Si gned by Jimenez Vigil on 01/31/2019 at 1442 Reported and signed by: Lorenzo Wilcox CC: Alondra Delcid NP Technologist: RT Sukumar(R) Trngiusepperd Heath e/Time/By: 01/31/2019 (5691) : By: [email or web address] Orig Print D/T: S: 2018 (3191) PAGE 1 Signed Report CARDIAC HNRAODT8761-59-90 01:55:00<0.02[facility] HermannCARDIAC DCYYVIZ5143-29-25 21:58:003[facility]annCARDIAC ENZYMES 2018-02-10 21:58:00<0.02[facility]annCARDIAC VXXKGUC8018-20-06 21:58:41813 [facility]annCHEM YJPUP6768-05-85 21:58:86847Fsqllzso HermannELECTROLYTES 2018-02-10 21:58:0011.4[facility] OkumfvqUCSJTNFXGOLO2337-63-58 21:58:00* Test Item Value Reference Range Interpretation Comments B/C Ratio (test code = B/C Ratio) 15 1 6-25 Memorial NsqzakoWFQFADMZJAVW5097-57-04 21:58:004.0[facility] HermannELECTROLYTES 2018-02-10 21:58:00* Test Item Value Reference Range Interpretation Comments A/G Ratio (test code = A/G Ratio) 1.0 1 0.7-1.6 Memorial QrmmfvzEKAEYFEHYEJB5655-42-57 21:58:42511Wlmeogfn HermannELECTROLYTES 2018-02-10 21:58:008.8[facility] OrabrllIXPDWYALXRHU7855-33-99 21:58:0041[facility] PxqcxesWWVMZSRJDHQH3212-73-54 21:58:0024[facility] OpmlsluIJGXXHINIMZT0174-96-17 21:58:008.2[facility] QigvfisPLADWULBLEFN9716-95-72 21:58:004.2[facility] [place] CNPUPZFVXVZM4492-67-97 21:58:003.4[facility] IrarchkIBNHFZMDSAIW6998-26-19 21:58:46826Olmxminw BmhriyhEFFGEFINCAKB0688-28-24 21:58:98141Agmraurd Evan JQYVQMHIGMRM9032-34-10 21:58:000.2[facility] AffdrewWVSQKSYCWEOV8209-50-47 21:58:28991Cujkzwnd DqfvbenYHJOZRYDRSBN6082-00-52 21:58:0028[facility] [place] KETNKIRXDJRF7901-53-59 21:58:000.95[facility] DdlvhjfGODJPLWNKBFE4124-00-27 21:58:00722Wlhpfgdd ZaibavdPFZXQLHMOBPM0450-29-83 21:58:0014[facility] [place] XXEPNGYVHB8965-84-73 21:58:000.32[facility] LgwcxusIRHVPQMFKD3308-10-37 21:58:00 10.7Memorial QtqhaopOFUJPFXJXF8375-46-05 21:58:005.38[facility] HermannHEMATOLOGY 2018-02-10 21:58:0092.1[facility] AkryuotOILVOYBJYO8919-03-17 21:58:0049.6[facility] LuipixcVTPTDTZSXH1474-78-91 21:58:0016.9[facility] LjzwaxzKCJVZNNOWA4293-56-10 21:58:00* Test Item Value Reference Range Interpretation Comments MCH (test code = MCH) 31.4 pg 27.0-31.0 Memorial RpmlxdfFQMFHMIBZA0402-36-79 21:58:007.7[facility] HermannHEMATOLOGY 2018-02-10 21:58:09223Cfvzvmmr LembzzjDUAJFYYYVI0939-59-45 21:58:0013.9[facility] GccwmgzIJXQXQBDLW9828-19-80 21:58:0034.1[facility] BshaprrUCRPQCDAYX0475-70-25 21:58:000.1[facility] TtnugvoGBAYVOWSDB3926-92-57 21:58:007.1[facility] Evan EQSZCRYHFQ1340-24-08 21:58:002.9[facility] SoadkxzVBXIWTOUSU2921-44-86 21:58:000.6 Memorial MwgoldbJKNYFDNWQQ4364-91-16 21:58:0066.0[facility] HermannHEMATOLOGY 2018-02-10 21:58:0026.9[facility] HxnduchQAXMMMVTAI9274-32-76 21:58:000.3[facility] AseufwhKWMSCKQAXX5869-59-37 21:58:005.8[facility] YhkbltrYYPCXCAHHS1253-35-09 21:58:001.0[facility] HermannCARDIAC EXNGPBY0377-99-65 13:58:0076[facility] [place] CARDIAC FLFGTXL0866-40-17 13:58:000.7[facility] HermannCARDIAC XJGUQQM3016-38-18 13:58:00<0.02[facility] HermannCARDIAC AABFTDT2474-55-32 13:58:000.9[facility] HermannCHEM SBCTX6255-79-57 13:58:0098[facility] HermannCHEM HYVJS4998-53-09 13:58:0016Mem[facility] HermannCHEM DOEJX0159-59-80 13:58:0093[facility] HermannCHEM IYXVH6843-47-01 13:58:0027[facility] HermannCHEM FXLWI0205-28-22 13:58:0030 [facility] HermannCHEM JNFRA8485-38-70 13:58:003.8[facility] HermannCHEM PANEL 2016-02-06 13:58:59379Xipotbwr HermannCHEM HLURB1025-22-69 13:58:000.6[facility] HermannCHEM ANUMC1473-83-83 13:58:009.8[facility] HermannCHEM DYEHO0294-79-36 13:58:0019Mem[facility] HermannCHEM EAHFN0574-62-89 13:58:008.5[facility] HermannCHEM PLUBX3246-80-56 13:58:007.4[facility] HermannCHEM EIBXL5911-94-56 13:58:003.8 [facility] HermannCHEM XZOVH0822-44-24 13:58:003.6[facility] HermannCHEM PANEL 2016-02-06 13:58:001.1[facility] HermannCHEM YHZSY3697-92-32 13:58:000.99[facility] HermannCHEM BEFRI4789-45-89 13:58:55481Oajtrihh HermannCHEM KNXRO1090-72-32 13:58:86169Tknkgdkn HermannCHEM JTGXO2547-69-62 13:58:0019[facility] Evan YZLUIOYTEI9602-28-48 13:58:0062.9[facility] SybrmxrCVOXFZLJSB2695-98-71 13:58:00 6.0[facility] FxsdpduIPOAEQLLAD9316-47-30 13:58:000.8[facility] HermannHEMATOLOGY 2016-02-06 13:58:004.2[facility] SwgwkfoTSELBBBIZC3849-07-34 13:58:000.2[facility] SatkimaTKQHNKWGPY3639-13-67 13:58:0026.1[facility] GyozinhLMYUWTQDDI5806-65-50 13:58:003.3[facility] PjomtobXSVNZFGWQW0930-21-49 13:58:000.3[facility] [place] ZYNPDCNRYI2903-02-63 13:58:001.4[facility] LlcfspkXMNCCICPSN0676-51-03 13:58:00* Test Item Value Reference Range Interpretation Comments PTT (test code = PTT) 31.3 s 22.9-35.8 Memorial GzksodxEBYTIDOZYL7304-10-28 13:58:0089.3[facility] HermannHEMATOLOGY 2016-02-06 13:58:0045.7[facility] YgbzptiYQFBLALFNM1851-12-74 13:58:00* Test Item Value Reference Range Interpretation Comments MCH (test code = MCH) 30.0 pg 27.0-31.0 [facility] IpytxaqRMUDEIWAVA8839-16-97 13:58:005.2[facility] HermannHEMATOLOGY 2016-02-06 13:58:0015.4[facility] NfossnaDHLPPOVSNZ5710-79-20 13:58:005.12[facility] PvwhhiqTFOVCBRFZL9485-08-98 13:58:008.1[facility] MqzwjtiRBSSWZNUJT9350-16-29 13:58:0013.4[facility] LvjmlqlDKTWQTVMEU9426-90-66 13:58:31524Gejwxdsq Evan XURPBPEHNL9501-90-27 13:58:0033.6[facility] KctcgmkQBTDLVVGLS0349-66-17 13:58:00* Test Item Value Reference Range Interpretation Comments PT (test code = PT) 13.6 s 12.0-14.7 [facility] IiojoxjDOWBBLKGAV9560-56-09 13:58:001.01[facility] 2016-02-06 13:58:00Negative *NA*(02/06/16 8:58 AM)[facility] 2016-02-06 13:58:00Clear (02/06/16 8:58 AM)[facility] 2016-02-06 13:58:00Small *ABN*(02/06/16 8:58 AM)[facility] 2016-02-06 13:58:007.0[facility] XJNHN9964-17-69 13:58:001.010 [facility] ZRYBS7647-95-45 13:58:00<1[facility] VOUZH5874-73-58 13:58:00Negative (02/06/16 8:58 AM)[facility] KCMOI3425-40-17 13:58:00Negative (02/06/16 8:58 AM)[facility] EKEKG2091-22-18 13:58:002[facility]annCARDIAC YANJDMJ1449-25-75 02:33:00<0.02 [facility] KMJJGDU5624-86-94 02:33:000.7[facility]annCHEM PANEL 2014-12-28 02:33:0020[facility]annCHEM ZRXCN5531-86-52 02:33:009.5[facility]annCHEM OQYON4640-54-17 02:33:003.8[facility]annCHE[facility] DCPWP2886-83-52 02:33:001.1[facility]annCHEM LQZCR1822-77-87 02:33:008.8[facility]annCHEM RARZZ5204-03-59 02:33:0078[facility]annCHE[facility] ZRTPC8213-65-57 02:33:78764 [facility]CHE[facility] PMVIM9522-86-72 02:33:003.5[facility]annCHEM PANEL 2014-12-28 02:33:001.2[facility]annCHEM QMRVT5021-87-74 02:33:45297Ubphguba HermannCHEM KWGVK8045-62-09 02:33:000.6[facility]annCHEM VQGQE3358-07-65 02:33:90363Ipdfegub HermannCHEM UGLBK9550-00-83 02:33:0030[facility]annCHEM NJGDY9801-49-33 02:33:0024[facility]annCHEM EGHJN8742-11-70 02:33:09672 [facility]CHE[facility] DUNBX3836-56-25 02:33:0018[facility]annCHEM PANEL 2014-12-28 02:33:004.3[facility]annCHEM BSFHJ6968-72-95 02:33:008.1[facility]annCHEM CUUNR2071-76-81 02:33:0031[facility] NxtxjazEWTQILIGMU5903-07-84 02:33:000.4[facility] UjhfautCNMGPRQCGE0245-81-46 02:33:000.5[facility] [place] SSAQBHCIPO0431-29-12 02:33:005.5[facility] LbtefjnBBOICMZBOW5719-46-87 02:33:002.9 [facility] [place]ukucauRSTPCQNJOM7101-08-82 02:33:000.1[facility]annHEMATOLOGY 2014-12-28 02:33:005.1[facility] NlzgjhcZKXPOVILAC8556-20-26 02:33:003.8[facility] KvrrzbqIBRSIQIBIG6722-86-67 02:33:000.7[facility] YhurdocIWHZRBLBOC0713-68-42 02:33:0030.9[facility] BduuvsaESJHLXXSAD9916-33-72 02:33:0059.5[facility] [place] ZTKFZZJPZH2914-46-29 02:33:009.2[facility] TbwkesoVXGRTMHAAW6559-61-65 02:33:00 5.37[facility] MmqhfypEPJBTOBFVZ2846-36-70 02:33:008.4[facility]annHEMATOLOGY 2014-12-28 02:33:47448Cssarrhw ZebstlsWZQXNRFYZU6134-59-80 02:33:0091.4[facility] HbnfnhzEJIFBITEYO1086-15-59 02:33:0049.1[facility] FxuaekaJVHWDEZMAD5548-69-77 02:33:00* Test Item Value Reference Range Interpretation Comments MCH (test code = MCH) 30.7 pg 27.0-31.0 [facility] BmlglckXKYCLCGOMA6499-19-06 02:33:0033.5[facility]annHEMATOLOGY 2014-12-28 02:33:0016.5[facility] TicotvsFMLUILOMSS1415-82-63 02:33:0014.2[facility] XLHBV1438-01-51 11:00:23Negative (01/26/14 6:00 AM)[facility] LYJAH6302-73-78 11:00:231[facility] STOOL 2014-01-26 11:00:231.012[facility] WAYWK0464-46-62 11:00:236.0 [facility] NDKGD1158-49-35 11:00:23Negative (01/26/14 6:00 AM) [facility] WPEPH9617-49-49 11:00:23Negative *NA*(01/26/14 6:00 AM) [facility] IQWIC3737-87-37 11:00:23Negative (01/26/14 6:00 AM) [facility] QSMTC8835-60-36 11:00:23Clear (01/26/14 6:00 AM) [facility]annCARDIAC JLYHQDY1575-22-22 11:00:00<0.02[facility]annCARDIAC SNOHWLZ2899-15-23 11:00:001.3[facility]annCARD[facility]AC BXLPTWU2869-53-91 11:00:00 93[facility]annC[facility]AC GNJJERP5242-11-96 11:00:001.4[facility] HermannCHEM FHZRA9056-88-91 11:00:0090[facility]annCHEM TPGGN7393-77-03 11:00:0099 [facility]annCHEM EZEWW5515-46-06 11:00:98978Iymdzffw HermannCHEM PANEL 2014-01-26 11:00:0016[facility]annCHEM MTRTH2802-31-18 11:00:003.8[facility]annCHEM XVLBJ0968-90-15 11:00:000.9[facility]annCHEM VQUYR4560-71-45 11:00:0030[facility]annCHE[facility] NPYAZ4254-59-93 11:00:62436Jrazjone HermannCHEM WWICJ6846-04-11 11:00:0014[facility]annCHEM JVZJW8112-94-73 11:00:000.4 [facility]annCHE[facility] PDJXW4390-98-56 11:00:0014.8[facility]annCHEM PANEL 2014-01-26 11:00:0014[facility]annCHEM BSVOA0840-61-94 11:00:82956Gqyrnwpo HermannCHEM OROHC6715-89-88 11:00:08161Obrhhckp HermannCHEM WGZUL7827-17-01 11:00:000.9[facility]annCHE[facility] PYIWO0679-08-99 11:00:003.8[facility]annCHEM TTBWN5443-81-97 11:00:98705Iqucpojq HermannCHEM HREDH2739-80-83 11:00:0024 [facility]annCHE[facility] YJGER1845-14-52 11:00:008.9[facility]annCHEM PANEL 2014-01-26 11:00:003.6[facility]annCHEM IIKRO7168-32-19 11:00:007.4[facility] IfpiyaaAHYOGFGCVT0736-35-82 11:00:000.3[facility] GauhwotKBVNMVYSMA5223-39-07 11:00:000.3[facility] TyyjmloSMETFQBVKG7410-56-97 11:00:001.8[facility] [place] FIMVLWAIFH2324-81-00 11:00:003.4[facility] WxunbnaFPICLMOBGX7224-84-77 11:00:000.8 [facility] FcldllyNVBRYBWWHH9636-05-86 11:00:005.3[facility]annHEMATOLOGY 2014-01-26 11:00:005.8[facility] OmwpjotGDVHZJKHZJ9094-86-38 11:00:0030.6[facility] TkrfwayVWMKQGIMKZ2596-26-29 11:00:0057.5[facility] XnpqvlzAANJVEHZJR9544-12-55 11:00:97850Rgehpkbk OtekcdzYUZRAWHWGT8444-79-49 11:00:007.8[facility] [place] AJDPTIKRQY3783-26-46 11:00:00* Test Item Value Reference Range Interpretation Comments MCH (test code = MCH) 30.5 pg 27.0-31.0 [facility] CsxhjcaDDHEMZABDC8596-62-86 11:00:0090.5[facility]annHEMATOLOGY 2014-01-26 11:00:0013.3[facility] SbjkvyqTRXKHIPZTQ5736-96-96 11:00:0033.7[facility] XyzlzljPZVNRUWUET0299-83-92 11:00:004.76[facility] LwzzzonJCYMCBWFQC4686-80-81 11:00:0043.1[facility] MlrftoeLGSQEOCFON2569-47-14 11:00:0014.5[facility] [place] SASFOLBRAP9391-86-21 11:00:005.9[facility] CenhliyFDKQCSBETT2653-42-10 11:00:00 Negative (01/26/14 6:00 AM)[facility]annCARDIAC RRRURNL8630-80-48 17:05:00< 0.02[facility] MdveczmZXLLNJIXVI3373-63-78 17:05:00Negative (12/14/13 12:05 PM) [facility]CARDI[facility] MVVDFJF2781-53-22 13:56:00<0.02[facility]annCARDIAC FMDEFUG7385-03-93 13:56:00<0.5[facility]annCARDIAC YTOGOFT2056-42-94 13:56:00 91[facility]annCARDIAC GMUOYAY3294-94-06 13:56:00<0.5[facility]annCHEM LZDWU9101-01-48 13:56:0098[facility]annCHEM KZXYN8852-88-85 13:56:003.8 [facility]annCHEM CPFHC4193-27-22 13:56:0019[facility]annCHEM PANEL 2013-12-14 13:56:000.4[facility]annCHEM PUAIK2105-12-88 13:56:0011.1[facility]annCHEM JQQXT4631-08-38 13:56:001.1[facility]annCHEM HKTHX1861-51-09 13:56:0021[facility]annCHEM FOYQG1677-53-86 13:56:52560Jkphwcee HermannCHEM SXQEH3489-62-99 13:56:76351Jyfwyoqn HermannCHEM HICLX5320-48-56 13:56:39775 [facility]annCHE[facility] DOGIC6445-40-93 13:56:0019[facility]annCHEM PANEL 2013-12-14 13:56:004.2[facility]annCHEM OTQAZ7389-67-71 13:56:0038[facility]annCHEM TUTKN3576-42-35 13:56:009.0[facility]annCHEM YBNCO0284-79-75 13:56:008.0[facility]annCHEM FHQLG7032-44-18 13:56:004.1[facility]annCHEM HBIFN8858-63-70 13:56:67677Jyuchjet HermannCHEM DLMMY8842-61-30 13:56:001.0 [facility] HermannCHEM FKCRJ0856-66-91 13:56:0029[facility]annHEMATOLOGY 2013-12-14 13:56:00* Test Item Value Reference Range Interpretation Comments PTT (test code = PTT) 30.9 s 22.9-35.8 [facility] AhdjxdtBCYWUEQDGA4016-54-01 13:56:000.92[facility]annHEMATOLOGY 2013-12-14 13:56:00* Test Item Value Reference Range Interpretation Comments PT (test code = PT) 12.3 s 12.0-14.7 [facility] YpfjpeoNZYPCJBKZM9936-70-68 13:56:81540Faererij HermannHEMATOLOGY 2013-12-14 13:56:00* Test Item Value Reference Range Interpretation Comments MCH (test code = MCH) 30.3 pg 27.0-31.0 [facility] HsvcxodEYAEEOKBDO5688-29-08 13:56:0013.4[facility]annHEMATOLOGY 2013-12-14 13:56:0033.9[facility] CpnmykcJQBYBLEIMX0425-08-70 13:56:007.7[facility] YgpwdrgORXZEBLUAW4638-98-37 13:56:004.96[facility] QuuvfamHBOGLHEDDY3341-24-00 13:56:006.8[facility] CjvdbiwVBJOHBSYVQ5729-10-89 13:56:0089.2[facility] YZHHVDQCVD5044-09-58 13:56:0044.3[facility] XpjtjumITNMIGTEMU2997-62-90 13:56:00 15.0[facility] LqowjfcAYZDRWRLFN3974-43-42 13:56:000.4[facility]annHEMATOLOGY 2013-12-14 13:56:0061.4[facility] NagidliHRUPGUAMKX4446-36-28 13:56:005.3[facility] DxpmmvuEZZTDJHVPY8274-95-67 13:56:0026.0[facility] EyyvyldAEEHEGHXUZ5131-43-50 13:56:000.4[facility] VpoewoxZHOCVKCEIJ7621-36-01 13:56:000.1[facility] UKBTAZHVJL1568-95-67 13:56:001.8[facility] XcatgmsQICJZQDCCN6980-45-04 13:56:004.2 [facility] HwlewtgZQZWNMRUWC8033-50-42 13:56:001.4[facility]annHEMATOLOGY 2013-12-14 13:56:005.9[facility] HermannABDOMEN COMP INCL UPR or DECUB [place] [address] Patient Name: VALENTE MORA JR MR #: [id number] : 1980 Age/Sex: 37/M Req #: [id number] Adm Physician: Ordered by: EMILY MINOR MD Report #: [id number] Location: [facility]/Bed: Procedure: 1368-1037 DX/ABDOMEN COMP INCL UP R or DECUB Exam Date: 05/21/17 Exam Time: 2149 REPORT STATUS: Signed ABDOMEN COMP INCL UPR or DECUB Clinical history: S PAIN S/P cholecystectomy S [id number] S 2149 S Y Technique: AP views abdom en Comparison: None Findings: Abdomen: No dilated loops of bowel. No ev idence of free air. Right hemidiaphragm is partially excluded from view. Other: Cholecystectomy clips. Evidence of mesh hernia repair over the pelvis. Impression: Nonobstructive bowel gas pattern. Signed by: Dr Camacho ortega MD on 05/21/2017 10:43 PM Dictated By: CAMACHO MCKEON MD [place] Signed By: CAMACHO MCKEON MD on 05/21/172242 Transcribed By: THANG santoyo 05/21/172242 COPY TO: EMILY MINOR MD
== END 2020-02-25 15:43 | disposition home or self-care (01) ==
LOC: ER 12:45
DX: J32.9 Chronic sinusitis, unspecified (principal); R05 Cough; F41.9 Anxiety disorder, unspecified; F32.9 Major depressive disorder, single episode, unspecified
CPT/HCPCS: 71045; 99283; U0002

== ENCOUNTER 2021-05-27 10:33 | Emergency (ER) | payer SELFPAY ==
[~2021-05-27] VITALS: Ht 170.2 cm; Wt 112.5 kg
[2021-05-27] MEDS ORDERED: CASIRIVIMAB/IMDEVIMAB 10 ML in SODIUM CHLORIDE 0.9% 100 ML IV ONE (11:30)
== END 2021-05-27 11:52 | disposition home or self-care (01) ==
LOC: ER 10:39
DX: U07.1 COVID-19 (principal); J06.9 Acute upper respiratory infection, unspecified; R05.9 Cough, unspecified; F41.9 Anxiety disorder, unspecified
CPT/HCPCS: 99283; J7050

== ENCOUNTER 2021-06-22 14:35 | Emergency (ER) | payer SELFPAY ==
[~2021-06-22] VITALS: Ht 170.2 cm; Wt 112.5 kg
== END 2021-06-22 15:28 | disposition home or self-care (01) ==
LOC: ER 14:38
DX: U07.1 COVID-19 (principal); R06.02 Shortness of breath; R73.03 Prediabetes; F41.9 Anxiety disorder, unspecified
CPT/HCPCS: 93005; 99283

== ENCOUNTER 2022-03-05 07:54 | Emergency (ER) | payer OTHER, SELFPAY ==
[~2022-03-05] VITALS: Ht 170.2 cm; Wt 112.5 kg
[2022-03-05] MEDS ORDERED: DICYCLOMINE HCL 20 MG/2 ML VIAL IM ONE (08:30)
[2022-03-05 08:47] LABS: BASOPHILS # (AUTO) 0.1 (0.0-0.1); EOSINOPHILS # (AUTO) 0.2 (0.0-0.4); EOSINOPHILS % 4.6 % (0.0-6.0); HEMATOCRIT 47.9 % (38.2-49.6); HEMOGLOBIN 15.6 g/dL (14.0-18.0); LYMPHOCYTES # (AUTO) 1.8 (1.0-3.2); LYMPHOCYTES % 35.9 % (18.0-39.1); MEAN CORPUSCULAR HEMOGLOBIN 30.5 pg (28-32); MEAN CORPUSCULAR HGB CONC 32.6 g/dL (31-35); MEAN CORPUSCULAR VOLUME 93.7 fL (81-99); MONOCYTES # (AUTO) 0.3 (0.2-0.8); MONOCYTES % 6.4 % (4.4-11.3); NEUTROPHILS # (AUTO) 2.6 (2.1-6.9); NEUTROPHILS % 52.1 % (38.7-80.0); PLATELET COUNT 301 x10e3/uL (140-360); RED BLOOD COUNT 5.11 x10e6/uL (4.3-5.7); RED CELL DISTRIBUTION WIDTH 12.6 % (11.7-14.4)
[2022-03-05 09:05] LABS: ALBUMIN 4.1 g/dL (3.5-5.0); ALBUMIN/GLOBULIN RATIO 1.2 (0.8-2.0); CALCIUM 9.1 mg/dL (8.4-10.2); CREATININE, SERUM 0.99 mg/dL (0.72-1.25); LIPASE 16 U/L (8-78)
[2022-03-05 11:20] VITALS: BP 121/81
== END 2022-03-05 11:00 | disposition home or self-care (01) ==
LOC: ER 08:03
DX: R10.13 Epigastric pain (principal); R14.0 Abdominal distension (gaseous)
CPT/HCPCS: 36415; 71045; 80053; 83690; 84484; 85025; 93005; 99284; J0500

== ENCOUNTER 2022-07-19 14:06 | Emergency (ER) | payer SELFPAY ==
[~2022-07-19] VITALS: Ht 170.2 cm; Wt 112.5 kg
[2022-07-19] MEDS ORDERED: BENZONATATE200 MG PO (15:58)
== END 2022-07-19 16:07 | disposition home or self-care (01) ==
LOC: ER 14:18
DX: R07.89 Other chest pain (principal); U07.1 COVID-19
CPT/HCPCS: 71046; 93005; 99283

== ENCOUNTER 2022-11-07 18:31 | Emergency (ER) | payer BC, SELFPAY ==
[~2022-11-07] VITALS: Ht 170.2 cm; Wt 112.5 kg
[~2022-11-07 18:31] MED LIST changes: +BENZONATATE200 MG PO
[2022-11-07 20:16] VITALS: O2SAT 100
[2022-11-07 20:43] LABS: BASOPHILS % 0.6 % (0.0-1.0); EOSINOPHILS # (AUTO) 0.2 (0.0-0.4); EOSINOPHILS % 2.6 % (0.0-6.0); HEMATOCRIT 47.4 % (38.2-49.6); HEMOGLOBIN 15.8 g/dL (14.0-18.0); LYMPHOCYTES # (AUTO) 2.1 (1.0-3.2); LYMPHOCYTES % 31.3 % (18.0-39.1); MEAN CORPUSCULAR HEMOGLOBIN 30.6 pg (28-32); MEAN CORPUSCULAR HGB CONC 33.3 g/dL (31-35); MEAN CORPUSCULAR VOLUME 91.9 fL (81-99); MONOCYTES # (AUTO) 0.4 (0.2-0.8); MONOCYTES % 6.5 % (4.4-11.3); NEUTROPHILS % 58.9 % (38.7-80.0); PLATELET COUNT 289 x10e3/uL (140-360); RED BLOOD COUNT 5.16 x10e6/uL (4.3-5.7); RED CELL DISTRIBUTION WIDTH 12.9 % (11.7-14.4)
[2022-11-07 21:10] LABS: ALBUMIN 4.3 g/dL (3.5-5.0); ALBUMIN/GLOBULIN RATIO 1.3 (0.8-2.0); ANION GAP 13.7 mmol/L (8-16); CALCIUM 9.2 mg/dL (8.4-10.2); CREATININE, SERUM 0.93 mg/dL (0.72-1.25); POTASSIUM 3.7 mmol/L (3.5-5.1)
[2022-11-07] MEDS ORDERED: IOPAMIDOL 370 MG/ML 100 ML INFUS..BTL INJ ONE (21:19)
== END 2022-11-07 22:23 | disposition home or self-care (01) ==
LOC: ER 18:34
DX: R10.33 Periumbilical pain (principal); K57.90 Diverticulosis of intestine, part unspecified, without perforation or abscess without bleeding; K76.0 Fatty (change of) liver, not elsewhere classified; E11.9 Type 2 diabetes mellitus without complications; E78.5 Hyperlipidemia, unspecified; F41.9 Anxiety disorder, unspecified
CPT/HCPCS: 36415; 74177; 80053; 85025; 99283; Q9967

== ENCOUNTER 2023-05-11 17:45 | Emergency (ER) | payer SELFPAY ==
[~2023-05-11] VITALS: Ht 170.2 cm; Wt 108.9 kg
[2023-05-11 18:39] LABS: BASOPHILS % 0.7 % (0.0-1.0); EOSINOPHILS # (AUTO) 0.3 (0.0-0.4); EOSINOPHILS % 4.9 % (0.0-6.0); HEMATOCRIT 44.8 % (38.2-49.6); HEMOGLOBIN 15.4 g/dL (14.0-18.0); LYMPHOCYTES # (AUTO) 2.1 (1.0-3.2); LYMPHOCYTES % 36.7 % (18.0-39.1); MEAN CORPUSCULAR HGB CONC 34.4 g/dL (31-35); MEAN CORPUSCULAR VOLUME 90.3 fL (81-99); MONOCYTES # (AUTO) 0.3 (0.2-0.8); MONOCYTES % 5.7 % (4.4-11.3); NEUTROPHILS % 51.8 % (38.7-80.0); PLATELET COUNT 266 x10e3/uL (140-360); RED BLOOD COUNT 4.96 x10e6/uL (4.3-5.7); WHITE BLOOD COUNT 5.75 x10e3/uL (4.8-10.8)
[2023-05-11 18:48] LABS: ALBUMIN 4.1 g/dL (3.5-5.0); ALBUMIN/GLOBULIN RATIO 1.3 (0.8-2.0); ANION GAP 13.7 mmol/L (8-16); BILIRUBIN,TOTAL 0.9 mg/dL (0.2-1.2); CALCIUM 8.8 mg/dL (8.4-10.2); CREATININE, SERUM 1.02 mg/dL (0.72-1.25); POTASSIUM 3.7 mmol/L (3.5-5.1); TOTAL PROTEIN 7.3 g/dL (6.5-8.1)
[2023-05-11] MEDS ORDERED: ONDANSETRON HCL INJ 2MG/ML 2ML 2 MG/ML VIAL IV STA (18:49)
[2023-05-11] MEDS ORDERED: KETOROLAC TROMETHAMINE 30 MG/ML VIAL IV STA (18:49)
[2023-05-11] MEDS ORDERED: KETOROLAC TROMETHAMINE 30 MG/ML VIAL ONE (18:52)
[2023-05-11] MEDS ORDERED: ONDANSETRON HCL INJ 2MG/ML 2ML 2 MG/ML VIAL ONE (18:53)
[2023-05-11 18:56] LABS: CLARITY,URINE CLEAR (CLEAR); COLOR,URINE YELLOW (YELLOW); LEUKOCYTE ESTERASE ,URINE NEGATIVE (NEGATIVE); NITRITE,URINE NEGATIVE (NEGATIVE); PH,URINE 6 (5 - 7); PROTEIN,URINE DIPSTICK NEGATIVE (NEGATIVE)
[2023-05-11 18:57] LABS: BACTERIA,URINE FEW /HPF; BILIRUBIN,URINE NEGATIVE (NEGATIVE); EPITHELIAL CELLS,URINE FEW /LPF; GLUCOSE, URINE NEGATIVE (NEGATIVE); KETONES,URINE NEGATIVE (NEGATIVE); RBC,URINE 0-5 /HPF (0-5); URINE UROBILINOGEN 0.2 mg/dL (0.2 - 1); WBC,URINE (MAN) 0-5 /HPF (0-5)
[2023-05-11] MEDS ORDERED: IOPAMIDOL 370 MG/ML 100 ML INFUS..BTL INJ ONE (19:24)
[2023-05-11] MEDS ORDERED: ONDANSETRON ODT4 MG SL (21:10)
[2023-05-11 21:23] VITALS: BP 120/77; O2SAT 100
== END 2023-05-11 21:20 | disposition home or self-care (01) ==
LOC: ER 18:23
DX: R10.31 Right lower quadrant pain (principal); K57.90 Diverticulosis of intestine, part unspecified, without perforation or abscess without bleeding; R11.0 Nausea; K76.0 Fatty (change of) liver, not elsewhere classified; E11.9 Type 2 diabetes mellitus without complications; E78.5 Hyperlipidemia, unspecified; F41.9 Anxiety disorder, unspecified; G47.30 Sleep apnea, unspecified
CPT/HCPCS: 36415; 74177; 80053; 81001; 85025; 99284; J1885; J2405; Q9967

== ENCOUNTER 2024-03-18 16:14 | Emergency (ER) | payer BC ==
[~2024-03-18] VITALS: Ht 170.2 cm; Wt 106.6 kg
[~2024-03-18 16:14] MED LIST changes: +DICYCLOMINE HCL20 MG PO; +KETOROLAC TROME10 MG PEG; +ONDANSETRON ODT4 MG SL
[2024-03-18 16:24] VITALS: TEMP 99
[2024-03-18 16:38] LABS: BASOPHILS # (AUTO) 0.1 (0.0-0.1); BASOPHILS % 0.7 % (0.0-1.0); EOSINOPHILS # (AUTO) 0.2 (0.0-0.4); EOSINOPHILS % 2.7 % (0.0-6.0); HEMATOCRIT 47.9 % (38.2-49.6); HEMOGLOBIN 15.8 g/dL (14.0-18.0); LYMPHOCYTES # (AUTO) 2.1 (1.0-3.2); LYMPHOCYTES % 29.5 % (18.0-39.1); MEAN CORPUSCULAR HEMOGLOBIN 31.6 pg (28-32); MEAN CORPUSCULAR VOLUME 95.8 fL (81-99); MONOCYTES # (AUTO) 0.5 (0.2-0.8); MONOCYTES % 6.6 % (4.4-11.3); NEUTROPHILS # (AUTO) 4.2 (2.1-6.9); NEUTROPHILS % 60.2 % (38.7-80.0); PLATELET COUNT 275 x10e3/uL (140-360); RED CELL DISTRIBUTION WIDTH 12.6 % (11.7-14.4); WHITE BLOOD COUNT 6.94 x10e3/uL (4.8-10.8)
[2024-03-18 16:59] LABS: ALBUMIN 4.4 g/dL (3.5-5.0); ALBUMIN/GLOBULIN RATIO 1.3 (0.8-2.0); ANION GAP 13.9 mmol/L (8-16); BILIRUBIN,TOTAL 0.7 mg/dL (0.2-1.2); CALCIUM 9.8 mg/dL (8.4-10.2); CREATININE, SERUM 0.81 mg/dL (0.72-1.25); POTASSIUM 3.9 mmol/L (3.5-5.1); TOTAL PROTEIN 7.9 g/dL (6.5-8.1)
[2024-03-18 17:30] VITALS: PULSE 84; RESP 16
[2024-03-18 17:50] VITALS: BP 133/81; PULSE 84; RESP 16; O2SAT 100
== END 2024-03-18 17:53 | disposition home or self-care (01) ==
LOC: ER 16:39
DX: R00.2 Palpitations (principal); R07.89 Other chest pain; E11.9 Type 2 diabetes mellitus without complications; E78.5 Hyperlipidemia, unspecified; J45.909 Unspecified asthma, uncomplicated; F41.9 Anxiety disorder, unspecified; G47.30 Sleep apnea, unspecified; R94.31 Abnormal electrocardiogram [ECG] [EKG]; Z87.442 Personal history of urinary calculi
CPT/HCPCS: 36415; 71045; 80053; 84484; 85025; 93005; 99284

== ENCOUNTER 2024-04-02 13:42 | Emergency (ER) | payer BC ==
[~2024-04-02] VITALS: Ht 170.2 cm; Wt 106.6 kg
[2024-04-02] MEDS ORDERED: SODIUM CHLORIDE FLUSH 10 ML SYR IV PRN (15:00)
[2024-04-02] MEDS ORDERED: PROCHLORPERAZINE EDISYLATE 5 MG/ML VIAL IV ONE (15:00)
[2024-04-02 15:25] LABS: BASOPHILS # (AUTO) 0.1 (0.0-0.1); BASOPHILS % 0.8 % (0.0-1.0); EOSINOPHILS # (AUTO) 0.1 (0.0-0.4); EOSINOPHILS % 1.8 % (0.0-6.0); HEMATOCRIT 45.7 % (38.2-49.6); LYMPHOCYTES # (AUTO) 1.6 (1.0-3.2); LYMPHOCYTES % 25.7 % (18.0-39.1); MEAN CORPUSCULAR HEMOGLOBIN 31.4 pg (28-32); MEAN CORPUSCULAR HGB CONC 32.8 g/dL (31-35); MEAN CORPUSCULAR VOLUME 95.6 fL (81-99); MONOCYTES # (AUTO) 0.3 (0.2-0.8); MONOCYTES % 5.4 % (4.4-11.3); NEUTROPHILS # (AUTO) 4.1 (2.1-6.9); NEUTROPHILS % 66.1 % (38.7-80.0); PLATELET COUNT 250 x10e3/uL (140-360); RED BLOOD COUNT 4.78 x10e6/uL (4.3-5.7); RED CELL DISTRIBUTION WIDTH 12.5 % (11.7-14.4); WHITE BLOOD COUNT 6.12 x10e3/uL (4.8-10.8)
[2024-04-02 15:41] LABS: ALANINE AMINOTRANSFERASE 34 IU/L (0-55); ALBUMIN 4.2 g/dL (3.5-5.0); ALBUMIN/GLOBULIN RATIO 1.3 (0.8-2.0); ALKALINE PHOSPHATASE 115 IU/L (40-150); ANION GAP 15.9 mmol/L (8-16); BILIRUBIN,TOTAL 0.4 mg/dL (0.2-1.2); BLOOD UREA NITROGEN 13 mg/dL (7-26); BUN/CREATININE RATIO 12 (6-25); CALCIUM 9.3 mg/dL (8.4-10.2); CARBON DIOXIDE 28 mmol/L (22-29); CHLORIDE 107 mmol/L (98-107); CREATININE, SERUM 1.06 mg/dL (0.72-1.25); EST GLOMERULAR FILTRATION RATE 89 ML/MIN (>=60); GLUCOSE 99 mg/dL (74-118); POTASSIUM 3.9 mmol/L (3.5-5.1); SODIUM 147 mmol/L (136-145); TOTAL PROTEIN 7.4 g/dL (6.5-8.1)
[2024-04-02 15:47] LABS: TROPONIN I < 0.001 ng/mL (0-0.300)
[2024-04-02] MEDS: KETOROLAC TROMETHAMINE 30 MG/ML VIAL IV STA (16:11)
[2024-04-02] MEDS: SODIUM CHLORIDE 0.9% 1000ML 1,000 ML IV ONE (16:11)
[2024-04-02] MEDS: DIPHENHYDRAMINE HCL INJ 50 MG/ML VIAL IV ONE (16:11)
[2024-04-02] MEDS: PROCHLORPERAZINE EDISYLATE INJ 10 MG in Sodium Chloride 0.9% 50ML 50 ML IV ONE (16:12)
[2024-04-02] MEDS: ACETAMINOPHEN 325 MG TAB PO ONE (16:13)
[2024-04-02 16:57] VITALS: PULSE 84; RESP 16; TEMP 98.1; O2SAT 99
== END 2024-04-02 17:00 | disposition home or self-care (01) ==
LOC: ER 14:48
DX: R51.9 Headache, unspecified (principal); R07.89 Other chest pain; E11.9 Type 2 diabetes mellitus without complications; E78.5 Hyperlipidemia, unspecified; K21.9 Gastro-esophageal reflux disease without esophagitis; J45.909 Unspecified asthma, uncomplicated; G47.39 Other sleep apnea; F41.9 Anxiety disorder, unspecified; F32.A Depression, unspecified; Z87.442 Personal history of urinary calculi
CPT/HCPCS: 36415; 71045; 80053; 83880; 84484; 85025; 93005; 94760; 99284; J0780; J1200; J1885; J7030

== ENCOUNTER 2024-08-06 08:45 | Emergency (ER) | payer BC ==
[~2024-08-06] VITALS: Ht 170.2 cm; Wt 106.6 kg
[2024-08-06 08:50] VITALS: PULSE 86; RESP 17; TEMP 98.5; O2SAT 100
== END 2024-08-06 09:09 | disposition home or self-care (01) ==
LOC: ER 08:53
DX: R07.89 Other chest pain (principal); E11.9 Type 2 diabetes mellitus without complications; E78.5 Hyperlipidemia, unspecified; K21.9 Gastro-esophageal reflux disease without esophagitis; J45.909 Unspecified asthma, uncomplicated; G47.30 Sleep apnea, unspecified; F41.9 Anxiety disorder, unspecified; F32.A Depression, unspecified
CPT/HCPCS: 99282

== ENCOUNTER 2024-10-14 05:39 | Emergency (ER) | payer SELFPAY ==
[~2024-10-14] VITALS: Ht 170.2 cm; Wt 108.9 kg
[2024-10-14 05:39] VITALS: TEMP 98.5
[2024-10-14 06:13] LABS: BASOPHILS # (AUTO) 0.1 (0.0-0.1); BASOPHILS % 1.1 % (0.0-1.0); EOSINOPHILS # (AUTO) 0.3 (0.0-0.4); EOSINOPHILS % 4.5 % (0.0-6.0); HEMATOCRIT 45.2 % (38.2-49.6); HEMOGLOBIN 15.4 g/dL (14.0-18.0); LYMPHOCYTES # (AUTO) 2.4 (1.0-3.2); LYMPHOCYTES % 37.2 % (18.0-39.1); MEAN CORPUSCULAR HEMOGLOBIN 31.4 pg (28-32); MEAN CORPUSCULAR HGB CONC 34.1 g/dL (31-35); MEAN CORPUSCULAR VOLUME 92.2 fL (81-99); MONOCYTES # (AUTO) 0.4 (0.2-0.8); MONOCYTES % 6.8 % (4.4-11.3); NEUTROPHILS # (AUTO) 3.3 (2.1-6.9); NEUTROPHILS % 50.2 % (38.7-80.0); PLATELET COUNT 260 x10e3/uL (140-360); RED CELL DISTRIBUTION WIDTH 12.5 % (11.7-14.4)
[2024-10-14 06:44] LABS: ALBUMIN 4.1 g/dL (3.5-5.0); ALBUMIN/GLOBULIN RATIO 1.2 (0.8-2.0); ANION GAP 14.6 mmol/L (8-16); BILIRUBIN,TOTAL 0.7 mg/dL (0.2-1.2); CALCIUM 8.8 mg/dL (8.4-10.2); CREATININE, SERUM 1.05 mg/dL (0.72-1.25); POTASSIUM 3.6 mmol/L (3.5-5.1); TOTAL PROTEIN 7.4 g/dL (6.5-8.1)
[2024-10-14 07:30] VITALS: PULSE 75; RESP 15
[2024-10-14] MEDS ORDERED: OMEPRAZOLE40 MG PO (07:31)
[2024-10-14 07:58] VITALS: BP 121/74; PULSE 82; RESP 17; TEMP 98.1; O2SAT 95
== END 2024-10-14 08:02 | disposition home or self-care (01) ==
LOC: ER 05:43
DX: R07.89 Other chest pain (principal); R05.9 Cough, unspecified; R19.7 Diarrhea, unspecified; E11.9 Type 2 diabetes mellitus without complications; E78.5 Hyperlipidemia, unspecified; K21.9 Gastro-esophageal reflux disease without esophagitis; G47.30 Sleep apnea, unspecified; J45.909 Unspecified asthma, uncomplicated; F41.9 Anxiety disorder, unspecified; F32.A Depression, unspecified; Z87.442 Personal history of urinary calculi
CPT/HCPCS: 36415; 71045; 80053; 84484; 85025; 93005; 99283

== ENCOUNTER 2024-12-25 02:47 | Emergency (ER) | payer BC ==
[~2024-12-25] VITALS: Ht 170.2 cm; Wt 108.9 kg
[2024-12-25 03:07] VITALS: PULSE 71; RESP 17; TEMP 98.5
[2024-12-25 04:17] LABS: CORONAVIRUS COVID-19 AG NEGATIVE (NEGATIVE)
[2024-12-25 04:22] VITALS: BP 125/70; PULSE 73; RESP 16; TEMP 98.6; O2SAT 100
== END 2024-12-25 04:30 | disposition home or self-care (01) ==
LOC: ER 03:18
DX: J06.9 Acute upper respiratory infection, unspecified (principal); B34.9 Viral infection, unspecified; E11.9 Type 2 diabetes mellitus without complications; J45.909 Unspecified asthma, uncomplicated; F41.9 Anxiety disorder, unspecified; F32.A Depression, unspecified; E78.5 Hyperlipidemia, unspecified; K21.9 Gastro-esophageal reflux disease without esophagitis; N20.0 Calculus of kidney; Z88.0 Allergy status to penicillin; Z88.5 Allergy status to narcotic agent; Z11.52 Encounter for screening for COVID-19
CPT/HCPCS: 71045; 99283